=== PATIENT | female | born 1995 | race Caucasian/White ===

== ENCOUNTER 2019-07-31 16:36 | Inpatient (IN) ==
--- NOTE | 2019-07-31 17:12 | ED.ABDFE ---
HPI Time Seen Time Seen by Provider: 07/31/19 17:05 PCP Primary Care Physician: DR GIBBONS HPI Comment HPI Comment: PATIENT IS 23YR OLD WHITE FEMALE IN THE EMERGENCY ROOM WITH FEVER, CONSTIPATION AND LOWER BACK PAIN. ILLNESS STATED 3 WEEKS AGO WITH DULL ACHE IN THE LOWER BACK THAT HAVE INCREASE IN INTENSITY. PAIN MOST SEVERE LEFT FLANK AREA. PAIN WAS 10/10 AT HOME BEFORE COMING TO HOSPITAL, TOOK PAIN MED NOW PAIN 6/10. PAIN RADIATES TO HER ABDOMEN. SHE IS CONSTIPATED TIMES 2 WEEKS AND HAD SMALL BM TODAY ONE TIME. ONE WEEK AGO, SAW DR. GIBBONS WHO DIAGNOSE NEW ONSET DIABETES AND SHE WAS STARTED ON METFORMIN. SHE IS TAKING MEDICATION. PATIENT SAID SHE IS RUNNING FEVER AND HURTING ALL OVER WELL IN HER CHEST. DENIES DYSURIA. NO POLYURIA BUT HAVE POLYDYPSIA. PATIENT HAVE RAPID HEART RATE AND RAPID BREATHING. Complaint Doctors Chief Complaint Comments: LOWER BACK PAIN TIMES 3 WEEKS, FEVER, VOMITING AND CONSTIPATION ALSO. Chief Complaint:: PT STATES THAT ALMOST 3 WEEKS AGO SHE STARTED HAVING A DULL PAIN BACK THAT GRADUALLY INCREASED INTO CONSTANT SHARP STABBING THAT IS ACROSS LOWER BACK THAT RADIATES INTO ABDOMEN. PT C/O CONSITPATION. PT HAD FIRST BM IN 2 WEEKS THIS MORNING. PT STATES SHE CAN'T KEEP FOOD OR LIQUIDS DOWN. PT C/O DIFFICULTY SWALLOWING AND HAS HAD FEVER AND CHILLS. Self Treatment fo Chief Complaint: TOOK DILAUDID 4MG PO AROUND NOON TODAY WITH MINIMAL RELIEF Reviewed Nurses Notes Review: Yes Source History Provided: Patient Mode of arrival Mode of Arrival: Ambulatory Timing Onset of Chief Complaint: 07/31/19 Came on: Suddenly Duration Since Onset: Constant Duration: Weeks Location Location: Diffuse (LOWER BACK PAIN RADIATING TO ABDOMEN.) Severity Severity: Moderate Quality Quality: Aching (ACHING BACK PAIN.), Sharp and Generalized Context History of: None Modifying factors Worsening Factors: Movement Improving Factors: Lying Still Associated signs and symptoms Associated Signs and Symptoms: Nausea, Vomiting and Constipation; denies Hematemesis and Dysuria Other history Other History: DIAGNOSE WITH DM ONE WEEK AGO TAKING METFORMING. PMH PMH Past Medical History: Yes Past Medical History: Diabetes Past Surgical History: Yes Surgical History: Tonsillectomy Family History History of Family Medical Conditions: Yes Family Medical History: Diabetes Mellitus and Hypertension Social History Does patient currently use any type of tobacco product: No Have you used tobacco products in the last 12 months: No Type of Tobacco Use: Cigarettes Does any household member use tobacco: Yes Alcohol Use: None Do you use any recreational Drugs:: Yes (PAIN PILLS) Lives With: Family Lives Where: Home infectious screening In the last 2 months have you had wt loss of >10#?: NO Have you had fever, night sweats or hemotysis?: No Have you traveled outside the country in the last 6 months?: No Isolation: Standard ROS Review of Systems Constitutional: See HPI, Chills, Fever, Weakness and Fatigue Eyes: No Symptoms Reported and See HPI; negative Eye Pain, Blurred Vision and Photophobia ENTM: No Symptoms Reported and See HPI; negative Ear Pain, Nose Discharge, Nose Congestion and Throat Pain Respiratoy: See HPI and Short of Breath; negative Productive Cough, Non- Productive Cough and Wheezing Cardiovascular: See HPI, Chest Pain and Palpitations; negative Edema Gastrointestinal/Abdominal: See HPI, Abdominal Pain, Constipation, Nausea and Vomiting; negative Diarrhea Genitourinary: See HPI and Pain; negative Discharge, Dysuria, Frequency and Hematuria Neurological: See HPI, Weakness and Dizziness; negative Headache Musculoskeletal: See HPI, Back Pain (LOWER BACK PAIN.) and Muscle Pain Integumentary: See HPI and Dryness; negative Change in Color, Rash and Juandice Hematologic/Lymphatic: See HPI; negative Easy Bleeding, Easy Bruising and S wollen Glands Endocrine: See HPI and Increased Thirst; negative Increased Urine Psychiatric: No Symptoms Reported and See HPI All Other Systems: Reviewed and Negative PE Vital Signs Vitals: Temperature 98.2 F Pulse Rate 115 Respiratory Rate 30 Blood Pressure [Left Arm] 145/95 Blood Pressure 131/88 O2 Sat by Pulse Oximetry 100 General Limitations: No Limitations General Appearance: Alert and In Distress (RAPID VENTILATION.) Head Head Exam: Normal Inspection and Atraumatic Eyes Eye exam: Normal Appearance, PERRL and EOMI; negative Scleral Icterus and Conjunctival Injection ENT ENT Exam: Normal Exam, Normal Oropharynx, Normal External Ear Exam and TM's Normal Bilaterally Neck Neck Exam: Normal Inspection and Trachea Midline; negative Tenderness and Lymphadenopathy Chest Chest Inspection: Normal Inspection and Symmetric Chest Wall Rise; negative Tenderness Respiratory Respiratory Exam: Normal Lung Sounds Bilat and Respiratory Distress; negative Accessory Muscle Use and Chest Wall Tenderness Respiratory Exam: Bilateral: Clear to Auscultation Cardiovascular Cardiovascular Exam: Regular Rate, Tachycardia and Normal Heart Sounds; negative Systolic Murmur and Diastolic Murmur Abdominal Exam Abdominal Exam: Normal Bowel Sounds, Soft and Tenderness Abdominal Tenderness: Diffuse and Moderate Rectal Rectal Exam: Deferred Back Back Exam: Tenderness, (R) CVA Tenderness, (L) CVA Tenderness and Paraspinal Tenderness Extremeties Extremities Exam: Normal Inspection and Normal Capillary Refill; negative Tenderness, Edema and Calf Tenderness External Exam: Female: Deferred : Speculum Exam (Female): Deferred : Bimanual Exam (female): Deferred Neurologic Neurological Exam: Alert, Oriented X3 and CN II-XII Intact; negative Motor Sensory Deficit Psychiatric Psychiatric Exam: Normal Affect and Normal Mood Skin Skin Exam: Dry MDM Differential Diagnosis Differential Diagnosis- Considerations may include:: Bowel Obstruction, Cholcystitis, Cholelethiasis, Constipation, Diverticular disease, Pancreatitis, Urinary tract infection and Urolithiasis Other differential diagnosis: DKA, SEPSIS,INFLUENZA,[place]. COURSE Treatment Treatment: SEE ORDER. NS 1L BOLUS. PATIENT SIGN OUT TO DR. ALCANTARA AT 20:15PM. Consultation Consultation Comments: RADIOLOGIST DR. NEIL DISCUSS LEFT RENAL MASS AND CONCERN FOR ABSCESS OR SEVERE PYELONEPHRITIS. DISCUSSED PATIENT WITH DR. FABIAN, ON MD. IV CONSTRAT CT ABD/PELVIS NOW, IV ANTIBIOTICS/ROCEPHIN AND TOBRAMYCIN. Education/Counseling Education/Counseling: Patient ROR Labs Reviewed Result Diagrams: 08/01/19 03:40 08/01/19 03:40 Laboratory: WBC 16.0 X10^3/uL (3.6-10.0) H 07/31/19 18:08 RBC 4.37 X10^6/uL (3.5-5.4) 07/31/19 18:08 Hgb 10.0 g/dL (12.0-16.0) L 07/31/19 18:08 Hct 31.3 % (36.0-47.0) L 07/31/19 18:08 MCV 71.6 fL (80.0-100.0) L 07/31/19 18:08 MCH 22.8 pg (27.0-34.0) L 07/31/19 18:08 MCHC 31.8 g/dL (33.0-35.0) L 07/31/19 18:08 RDW 16.0 % (11.6-16.5) 07/31/19 18:08 Plt Count 513 X10^3/uL (150.0-450.0) H 07/31/19 18:08 Plt Count Comment Increased (ADEQUATE) A 07/31/19 18: MPV 8.4 fL (7.4-11.0) 07/31/19 18:08 Neut % (Auto) 78.2 % (42.0-75.0) H 07/31/19 18:08 Lymph % (Auto) 12.2 % (21.0-51.0) L 07/31/19 18:08 Steele % (Auto) 8.9 % (0.0-13.0) 07/31/19 18:08 Eos % (Auto) 0.2 % (0.9-2.9) L 07/31/19 18:08 Baso % (Auto) 0.5 % (0.2-1.0) 07/31/19 18:08 Neut # (Auto) 12.5 x10^3/uL (2.2-4.8) H 07/31/19 18:08 Lymph # (Auto) 2.0 X10^3/uL (1.3-2.9) 07/31/19 18:08 Steele # (Auto) 1.4 x10^3/uL (0.3-0.8) H 07/31/19 18:08 Eos # (Auto) 0.0 x10^3/uL (0.0-0.2) 07/31/19 18:08 Baso # (Auto) 0.1 X10^3/uL (0.0-0.1) 07/31/19 18:08 Absolute Nucleated RBC 0.0 /100WBC 07/31/19 18:08 Plt Morphology Comment Normal (NORMAL) 07/31/19 18: RBC Morphology Abnormal (NORMAL) A 07/31/19 18: Hypochromasia 1+ A 07/31/19 18: Sample Site Rb 07/31/19 21:00 ABG pH 7.400 (7.35-7.45) 07/31/19 21:00 ABG pCO2 33.0 mmHg (35.0-45.0) L 07/31/19 21:00 ABG pO2 93.0 mmHg (80.0-100.0) 07/31/19 21:00 ABG HCO3 20.4 mmol/L (22-26) L 07/31/19 21:00 ABG O2 Saturation 97.0 % (90-100) 07/31/19 21:00 ABG Base Excess -3.6 mmol/L (-2.0-2.0) L 07/31/19 21:00 Lam Test N/a 07/31/19 21:00 A-a Gradient 15.0 mmHg 07/31/19 21:00 FiO2 21.0 07/31/19 21:00 Blood Gas Comments Irma well ae 07/31/19 21:00 Sodium 130 mmol/L (136-145) L 07/31/19 20:31 Corrected Sodium 135 mmol/L (136-145) L 07/31/19 20:31 Potassium 2.8 mmol/L (3.5-5.1) L* 07/31/19 20:31 Chloride 95 mmol/L (98-107) L 07/31/19 20:31 Carbon Dioxide 19.2 mmol/L (21-32) L 07/31/19 20:31 BUN 2 mg/dL (7-18) L 07/31/19 20:31 Creatinine 0.66 mg/dL (0.55-1.02) 07/31/19 20:31 Est GFR (MDRD) Af Amer > 60 (>60) 07/31/19 20:31 Est GFR (MDRD) Non-Af > 60 (>60) 07/31/19 20:31 Glucose 316 mg/dL (65-99) H 07/31/19 20:31 POC Glucose (mg/dL) 298 mg/dL (65-99) H 07/31/19 21:23 Lactic Acid 0.8 mmol/L (0.4-2.0) 07/31/19 19:41 Calcium 8.4 mg/dL (8.5-10.1) L 07/31/19 20:31 Corrected Calcium 10.3 mg/dL (8.5-10.1) H 07/31/19 18:08 Total Bilirubin 0.40 mg/dL (0.2-1.0) 07/31/19 18:08 AST 9 Units/L (15-37) L 07/31/19 18:08 ALT 9 Units/L (12-78) L 07/31/19 18:08 Alkaline Phosphatase 137 Units/L (46-116) H 07/31/19 18:08 Creatine Kinase 28 Units/L (26-192) 07/31/19 18:08 CK-MB (CK-2) < 1.0 ng/mL (0-4.0) 07/31/19 18:08 CK/CKMB % Calc 3.6 % (<4) 07/31/19 18:08 Troponin I < 0.02 ng/mL (0-1.5) 07/31/19 18:08 Total Protein 8.2 g/dL (6.4-8.2) 07/31/19 18:08 Albumin 2.4 g/dL (3.4-5.0) L 07/31/19 18:08 Globulin 5.8 g/dL (2.5-4.5) H 07/31/19 18:08 Albumin/Globulin Ratio 0.4 Ratio (1.1-2.1) L 07/31/19 18:08 Amylase 9 Units/L (25-115) L 07/31/19 18:08 Lipase 30 Units/L (73-393) L 07/31/19 18:08 Specimen Type Clean catch urine 07/31/19 17:35 Urine Color Pale yellow (YELLOW) 07/31/19 17:35 Urine Appearance Clear (CLEAR) 07/31/19 17:35 Urine pH 6.0 (5.0 - 8.0) 07/31/19 17:35 Ur Specific [place] 1.010 (1.000-1.030) 07/31/19 17:35 Urine Protein 2+ (NEGATIVE) 07/31/19 17:35 Urine Glucose (UA) 4+ (NEGATIVE) 07/31/19 17:35 Urine Ketones 3+ (NEGATIVE) 07/31/19 17:35 Urine Occult Blood 2+ (NEGATIVE) 07/31/19 17:35 Urine Nitrite Negative (NEGATIVE) 07/31/19 17:35 Urine Bilirubin Negative (NEGATIVE) 07/31/19 17:35 Urine Urobilinogen Normal (NORMAL) 07/31/19 17:35 Ur Leukocyte Esterase Negative (NEGATIVE) 07/31/19 17:35 Urine RBC 0-2 /HPF (0-3) 07/31/19 17:35 Urine WBC None seen /HPF (0-5) 07/31/19 17:35 Ur Squamous Epith Cells Negative /HPF (NEGATIVE) 07/31/19 17:35 Urine Bacteria Negative /HPF (NEGATIVE) 07/31/19 17:35 Ur Culture Indicated? No/not indicated 07/31/19 17:35 Urine Opiates Screen Negative (NEG=<300) 07/31/19 17:35 Urine Methadone Screen Negative (NEG=<300) 07/31/19 17:35 Ur Barbiturates Screen Negative (NEG=<200) 07/31/19 17:35 Ur Phencyclidine Scrn Negative (NEG=<25) 07/31/19 17:35 Ur Amphetamines Screen Negative (NEG=<1000) 07/31/19 17:35 U Benzodiazepines Scrn Negative (NEG=<200) 07/31/19 17:35 Urine Cocaine Screen Negative (NEG=<300) 07/31/19 17:35 U Marijuana (THC) Screen Negative (NEG=<50) 07/31/19 17:35 Acetone, Semi-Quant Small (NEGATIVE) H 07/31/19 18:08 Influenza Type A (PCR) Negative (NEGATIVE) 07/31/19 18:09 Influenza Type B (PCR) Negative (NEGATIVE) 07/31/19 18:09 Opioid Opioid Risk Tool Total: 0 Total Score Risk Category: Low Risk Copyright: Yinka BRENNAN predicting aberrant behaviors Diagnosis Discharge Problem: Renal lesion, Renal abscess, Perinephric abscess, Metabolic acidosis due to diabetes mellitus, Hypokalemia, Constipation Diabetes mellitus Qualifiers: Diabetes mellitus type: other specified (including SEAN) Diabetes mellitus exterminator termite insulin use: without exterminator termite use Diabetes mellitus complication status: with hyperglycemia Qualified Code(s): E13.65 - Other specified diabetes mellitus with hyperglycemia Instructions Forms: Excuse From Work Patient Portal ADDITIONAL NOTES Additional Notes Additional Notes: DISCUSSED PATIENTS CONDITION OF POSSIBLE DKA AND RENAL ABSCESS WITH HER. HER CT REPORT WELL NEED FOR CT WITH CONTRAST. SHE UNDERSTANDS. SHE IS TOLD CARE IS TURN TO DR. ALCANTARA MY SHIFT IS ENDDED.
[2019-07-31 17:46] LABS: BILIRUBIN,URINE NEGATIVE (NEGATIVE); BLOOD/HEMOGLOBIN,URINE 2+ (NEGATIVE); GLUCOSE, URINE 4+ (NEGATIVE); KETONES,URINE 3+ (NEGATIVE); LEUKOCYTE ESTERASE ,URINE NEGATIVE (NEGATIVE); NITRITES,URINE NEGATIVE (NEGATIVE); PROTEIN,URINE 2+ (NEGATIVE); UROBILINOGEN,URINE NORMAL (NORMAL)
[2019-07-31 17:54] LABS: APPEARANCE,URINE CLEAR (CLEAR); COLOR,URINE PALE YELLOW (YELLOW)
[2019-07-31 17:55] LABS: BACTERIA,URINE NEGATIVE /HPF (NEGATIVE); RBC,URINE 0-2 /HPF (0-3); SQUAMOUS EPITHELIAL CELL,UR NEGATIVE /HPF (NEGATIVE)
[2019-07-31] MEDS ORDERED: NS 1000 ML 1,000 ML IV ONE ×4 (17:59→20:36)
[2019-07-31] MEDS ORDERED: NS 1000 ML 1,000 ML ONE ×4 (18:05→22:09)
[2019-07-31 18:17] LABS: BASOPHILS # (AUTO) 0.1 X10^3/uL (0.0-0.1); BASOPHILS % (AUTO) 0.5 % (0.2-1.0); EOSINOPHILS % (AUTO) 0.2 % (0.9-2.9); HEMATOCRIT 31.3 % (36.0-47.0); LYMPHOCYTES % (AUTO) 12.2 % (21.0-51.0); MEAN CORPUSCULAR HEMOGLOBIN 22.8 pg (27.0-34.0); MEAN CORPUSCULAR HGB CONC 31.8 g/dL (33.0-35.0); MEAN CORPUSCULAR VOLUME 71.6 fL (80.0-100.0); MEAN PLATELET VOLUME 8.4 fL (7.4-11.0); MONOCYTES # (AUTO) 1.4 x10^3/uL (0.3-0.8); MONOCYTES % (AUTO) 8.9 % (0.0-13.0); NEUTROPHILS # (AUTO) 12.5 x10^3/uL (2.2-4.8); NEUTROPHILS % (AUTO) 78.2 % (42.0-75.0); PLATELET COUNT 513 X10^3/uL (150.0-450.0); RED BLOOD COUNT 4.37 X10^6/uL (3.5-5.4)
[2019-07-31 18:38] LABS: ALANINE AMINOTRANSFERASE 9 Units/L (12-78); ALBUMIN 2.4 g/dL (3.4-5.0); ALKALINE PHOSPHATASE 137 Units/L (46-116); AMYLASE 9 Units/L (25-115); ASPARTATE AMINO TRANSFERASE 9 Units/L (15-37); BLOOD UREA NITROGEN 2 mg/dL (7-18); CARBON DIOXIDE 17.8 mmol/L (21-32); CHLORIDE 86 mmol/L (98-107); CKMB % 3.6 % (<4); COR CA(FOR HYPOALB) 10.3 mg/dL (8.5-10.1); CREATINE KINASE 28 Units/L (26-192); CREATINE KINASE MB < 1.0 ng/mL (0-4.0); CREATININE 0.86 mg/dL (0.55-1.02); LIPASE 30 Units/L (73-393); TOTAL PROTEIN 8.2 g/dL (6.4-8.2); eGFR NON BLACK RACES > 60 (>60)
[2019-07-31 18:41] LABS: HYPOCHROMASIA 1+; PLATELET MORPHOLOGY COMMENT NORMAL (NORMAL)
[2019-07-31 18:57] LABS: SODIUM 123 mmol/L (136-145)
[2019-07-31 18:59] LABS: COR NA(FOR HYPERGLY) 134 mmol/L (136-145)
[2019-07-31 19:01] LABS: TROPONIN I < 0.02 ng/mL (0-1.5)
--- NOTE | 2019-07-31 19:16 | CT ---
CT abdomen and pelvis without contrast Indication: Left flank pain Technique: Helical CT images of the abdomen and pelvis were obtained without IV contrast. Reformatted images in the coronal and sagittal planes were also generated for review. Comparison: None Findings: Lung bases are clear. No aggressive osseous lesions. Evaluation for soft tissue pathology is limited without IV contrast. Accounting for this, there is a large soft tissue density collection versus mass arising from the inferior margin of the left kidney, measuring roughly 7.7 cm in maximum diameter (coronal image 22). This could represent a large left renal hematoma, pyelonephritis complicated by abscess or possibly underlying renal mass. Moderate stranding about the left kidney and left renal lesion also seen. There is no urolithiasis or obstructive uropathy of either kidney. The proximal descending colon is compressed by the left renal lesion and appears mildly thickened. There is moderate stool throughout the more proximal colon, possibly representing partial colonic obstruction. No small bowel dilatation is seen to suggest small bowel obstruction. The unenhanced liver, spleen, pancreas and adrenals are grossly unremarkable. Nondistended gallbladder is normal. The abdominal aorta is normal in caliber. Urinary bladder is grossly normal without stones. Uterus and ovaries are present. No free air or significant free fluid is identified. There are multiple mildly enlarged retroperitoneal lymph nodes. For future reference, a left retroperitoneal node measures up to 1.5 cm in short axis on image 38 series 3. Impression: Large (7.7 cm) soft tissue density mass versus collection arising from the inferior margin of the left kidney as above. Findings are poorly evaluated without IV contrast and differential considerations include left renal hematoma, pyelonephritis complicated by abscess or possibly underlying renal neoplasm. Clinical as well as lab correlation for signs of infection is necessary. Contrast enhanced CT or MR renal mass protocol is also recommended on an outpatient basis for further evaluation once the patient is clinically stable. Prominent left retroperitoneal lymph nodes, which are nonspecific but could be reactive versus malignant in etiology. Attention at follow-up recommended. Compression as well as mild likely reactive thickening of the proximal descending colon by the left renal lesion as above. There is moderate stool within the more proximal colon, which could represent partial associated colonic obstruction. Correlation with patient bowel habits is necessary. The above findings and recommendations were discussed with Dr. Fritz by Dr. Neil via telephone at 7:10 p.m. 07/31/2019. Reported By:
[2019-07-31] MEDS ORDERED: ROCEPHIN VIAL 1 GRAM 1 G in NS 100 ML IV + SPIKE MINIBAG* 100 ML IV ONE (20:21)
[2019-07-31] MEDS ORDERED: ROCEPHIN VIAL 1 GRAM ONE (20:32)
[2019-07-31] MEDS ORDERED: TOBRAMYCIN SULFATE 80 MG in NS 100 ML IV 100 ML IV ONE (20:37)
[2019-07-31] MEDS ORDERED: ZOFRAN INJ 4 MG VIAL IVP ONE (20:38)
[2019-07-31] MEDS ORDERED: ZOFRAN INJ 4 MG VIAL ONE (20:39)
[2019-07-31] MEDS ORDERED: TOBRAMYCIN SULFATE ONE (20:39)
[2019-07-31] MEDS ORDERED: NS 100 ML IV 100 ML IV ONE (20:40)
[2019-07-31 20:44] LABS: BLOOD UREA NITROGEN 2 mg/dL (7-18); CALCIUM 8.4 mg/dL (8.5-10.1); CARBON DIOXIDE 19.2 mmol/L (21-32); CHLORIDE 95 mmol/L (98-107); COR NA(FOR HYPERGLY) 135 mmol/L (136-145); CREATININE 0.66 mg/dL (0.55-1.02); SODIUM 130 mmol/L (136-145); eGFR NON BLACK RACES > 60 (>60)
[2019-07-31] MEDS ORDERED: K-LYTE EFFERVESCENT PO STA (20:45)
[2019-07-31] MEDS ORDERED: K-LYTE EFFERVESCENT ONE (20:48)
[2019-07-31] MEDS ORDERED: HumuLIN R IV STA (20:54)
[2019-07-31] MEDS ORDERED: HumuLIN R ONE (20:58)
[2019-07-31 21:07] LABS: ABG BASE EXCESS -3.6 mmol/L (-2.0-2.0); ABG HCO3 20.4 mmol/L (22-26)
--- NOTE | 2019-07-31 23:04 | CT ---
CT abdomen and pelvis without contrast Indication: Left flank pain for 2 weeks. Nausea. History of mass seen on recent CT Technique: Helical images through the abdomen and pelvis after IV contrast. Coronal and sagittal reformats provided. Comparison: CT from 07/31/2019 Findings: Limited images through lower chest shows no acute abnormality. Review of bone windows shows no osseous lesion Abdomen: The liver, gallbladder, spleen, pancreas and adrenal glands are normal. The right kidney is normal. Vasculature is. Stomach and small bowel show no acute abnormality with contrast reaching the cecum without obstruction. There is moderate stool colon. And cephalo Shane the descending colon is large peripherally enhancing collection, also abutting the inferior pole of left kidney were the left kidney heterogeneously enhances on axial image 35. There is septated area in the lower pole of the left kidney measuring 2.8 x 2.8 x 2.5 cm on axial image 35 and coronal image 26 (AP, trans, cc), possibly representing a renal abscess. Adjacent to this and possibly communicating with this there is a large peripherally enhancing collection which abuts and compresses the descending colon which shows reactive wall thickening. This collection measures 7.0 x 7.2 x 7.0 cm on axial image 40 and coronal image 25 (AP, trans, cc). This is compatible with a perinephric abscess, probably from pyelonephritis and renal abscess, although colonic infection and subsequent abscess is possible. Underlying lesion cannot be completely excluded Pelvis: The urinary bladder, rectum, uterus and adnexa are normal. Impression: 1. Large peripherally enhancing collection in the left abdomen abutting the lower pole of the kidney in the descending colon. This is compatible with an abscess. Given the findings within the kidney, there is also a renal abscess and this could be the origin of the lesion. However, colonic origin is not excluded. Surgical evaluation recommended. Underlying lesion should be excluded. 2. No other acute abnormality seen. Reported By:
[2019-07-31] MEDS ORDERED: NS 1/2 1000 ML IV 0 ML IV ONE (23:33)
[2019-07-31] MEDS ORDERED: NS 1/2 + KCL 20 MEQ/L 1,000 ML IV ONE (23:41)
[2019-07-31] MEDS ORDERED: ROCEPHIN VIAL 1 GRAM 1 G in NS 100 ML IV + SPIKE MINIBAG* 100 ML IV SCH (23:41)
[2019-07-31] MEDS: NS 1/2 + KCL 20 MEQ/L 1,000 ML IV SCH (23:45)
[2019-08-01] MEDS ORDERED: NS 100 ML IV 100 ML IV ONE (00:09)
[2019-08-01] MEDS ORDERED: HumuLIN R ONE (00:10)
[2019-08-01 00:37] LABS: BLOOD UREA NITROGEN 1 mg/dL (7-18); CALCIUM 7.9 mg/dL (8.5-10.1); CHLORIDE 95 mmol/L (98-107); COR NA(FOR HYPERGLY) 136 mmol/L (136-145); CREATININE 0.56 mg/dL (0.55-1.02); SODIUM 131 mmol/L (136-145); eGFR NON BLACK RACES > 60 (>60)
[2019-08-01 02:16] VITALS: BMI 28.4
[2019-08-01] MEDS ORDERED: MAGNESIUM SULFATE 1 GRAM/100 mL PREMIX 4 G/400 ML BAG IV ONE (03:06)
[2019-08-01] MEDS: MAGNESIUM SULFATE 1 GRAM/100 mL PREMIX 1 GM/100 ML BAG IV PRN ×4 (03:10→13:41)
[2019-08-01 03:58] LABS: BASOPHILS % (AUTO) 0.3 % (0.2-1.0); EOSINOPHILS % (AUTO) 0.3 % (0.9-2.9); HEMATOCRIT 28.4 % (36.0-47.0); HEMOGLOBIN 9.3 g/dL (12.0-16.0); LYMPHOCYTES # (AUTO) 2.1 X10^3/uL (1.3-2.9); LYMPHOCYTES % (AUTO) 15.1 % (21.0-51.0); MEAN CORPUSCULAR HEMOGLOBIN 22.7 pg (27.0-34.0); MEAN CORPUSCULAR HGB CONC 32.7 g/dL (33.0-35.0); MEAN CORPUSCULAR VOLUME 69.5 fL (80.0-100.0); MEAN PLATELET VOLUME 7.8 fL (7.4-11.0); MONOCYTES # (AUTO) 1.3 x10^3/uL (0.3-0.8); MONOCYTES % (AUTO) 9.1 % (0.0-13.0); NEUTROPHILS # (AUTO) 10.7 x10^3/uL (2.2-4.8); NEUTROPHILS % (AUTO) 75.2 % (42.0-75.0); PLATELET COUNT 471 X10^3/uL (150.0-450.0); RED BLOOD COUNT 4.08 X10^6/uL (3.5-5.4); RED CELL DISTRIBUTION WIDTH 16.3 % (11.6-16.5); WHITE BLOOD COUNT 14.2 X10^3/uL (3.6-10.0)
[2019-08-01 04:09] LABS: BLOOD UREA NITROGEN 0 mg/dL (7-18); CARBON DIOXIDE 22.2 mmol/L (21-32); CHLORIDE 97 mmol/L (98-107); COR NA(FOR HYPERGLY) 136 mmol/L (136-145); CREATININE 0.52 mg/dL (0.55-1.02); SODIUM 133 mmol/L (136-145); eGFR NON BLACK RACES > 60 (>60)
[2019-08-01] MEDS ORDERED: POTASSIUM CHL 60 MEQ/NS 0.45% 500 ML IV PRN (04:21)
[2019-08-01] MEDS ORDERED: MICRO K EXTEN CAP 10 MEQ PO PRN (04:21)
[2019-08-01] MEDS ORDERED: KLOR-CON PO PRN (04:21)
[2019-08-01] MEDS ORDERED: K-RIDER 10 MEQ/NS 100 ML 10 MEQ/100 ML BAG IV PRN (04:21)
[2019-08-01] MEDS ORDERED: POTASSIUM CHL 40 MEQ/NS 0.45% 500 ML IV PRN (04:21)
[2019-08-01] MEDS ORDERED: NS 500 ML IV 500 ML IV ONE (04:25)
[2019-08-01] MEDS ORDERED: K-RIDER 10 MEQ/NS 100 ML 40 MEQ/400 ML BAG IV ONE (04:25)
[2019-08-01 09:09] LABS: CALCIUM 7.9 mg/dL (8.5-10.1); CARBON DIOXIDE 23.7 mmol/L (21-32); CHLORIDE 96 mmol/L (98-107); COR NA(FOR HYPERGLY) 132 mmol/L (136-145); CREATININE 0.44 mg/dL (0.55-1.02); SODIUM 131 mmol/L (136-145); eGFR NON BLACK RACES > 60 (>60)
[2019-08-01 09:28] LABS: BLOOD UREA NITROGEN 1 mg/dL (7-18)
[2019-08-01] MEDS: NS 1/2 + KCL 20 MEQ/L 1,000 ML IV SCH ×3 (10:07→20:26)
[2019-08-01] MEDS: TOBRAMYCIN SULFATE 80 MG in NS 100 ML IV 100 ML IV SCH ×2 (10:07→21:22)
[2019-08-01] MEDS: K-DUR TAB 20 MEQ PO PRN (10:08)
--- NOTE | 2019-08-01 12:46 | DR.H&P ---
H&P - History & Physical for Day of: H&P Date: 07/31/19 - Chief Complaint Chief Complaint: LEFT LOWER BACK PAIN, FEVER, N/V, ELEVATED BLOOD SUGAR - History of Present Illness History of Present Illness: This is a 23-year-old female who was having abdominal pain, more localized to the left flank and left side of the abdomen, which started several weeks ago with on-and-off abdominal pain on the left side with nausea, fever, frequent vomiting, and constipation. The patient was seen by Dr. Suárez last week and was treated for new onset diabetes mellitus and possible urinary tract infection. She had a small bowel movement earlier today but she was still having a low grade fever and chills. The patient was having frequent urination, but no significant burning sensation. She has a history of recurrent episodes of urinary tract infection over the past few years. No known diabetes mellitus in the past. She has normal bowel habits prior to this episode. No rectal bleeding. No known history of inflammatory bowel disease, diverticulosis, or other complaints. With this episode of pain, the patient was having heartburn and other gastroesophageal reflux disease symptoms. No known history of peptic ulcer disease or hiatal hernia. Pt reports she did have gestational diabetes, no complications post . Pt [id number] , na 123 on admission. Pt was admitted to ICU - Past Medical History Past Medical History: Diabetes - Past Surgical History Surgical History: Tonsillectomy - Family History Family Medical History: Diabetes Mellitus, Hypertension - Social History Does patient currently use any type of tobacco product: Yes Have you used tobacco products in the last 12 months: Yes Type of Tobacco Use: Cigarettes How many years tobacco product used: 4 Does any household member use tobacco: Yes Alcohol Use: None Drug Use: Prescription Drugs - Medications Home Medications: Sulfa (Sulfonamide Antibiotics) Allergy (Verified 07/31/19 23:40) CONTINUE taking the following medications metformin 1,000 mg PO BID 07/31/19 [History] pioglitazone 45 mg PO DAILY 07/31/19 [History] - Review of Systems Constitutional: Fever, Weakness, Malaise Eyes: No Symptoms Reported ENT: No Symptoms Reported Respiratory: No Symptoms Reported Cardiovascular: No Symptoms Reported Gastrointestinal: Nausea, Vomiting, Abdominal Pain Genitourinary: Retention Musculoskeletal: Back Pain Skin: No Symptoms Reported Neurological: No Symptoms Reported - Physical Exam Vital Signs: Temperature 99.6 F Pulse Rate [Apical] 109 Pulse Rate 120 Respiratory Rate 18 Blood Pressure [Left Arm] 125/81 Blood Pressure 141/91 O2 Sat by Pulse Oximetry 99 Oriented: Normal Eyes: Normal Ear: Normal Nose: Normal Throat: Normal Respiratory: Clear Throughout Cardiovascular: Normal : Normal Auscultation: Bowel Sounds: Normal Palpation: Normal Tenderness: LUQ, Moderate Skin: Decreased Turgur Musculoskeletal: Back:Thoracic, Back:Lumbar, Tender Psychiatric: Anxiety Affect: Anxious Speech Pattern: Clear, Appropriate - Assessment/Plan (1) Perinephric abscess Status: Acute Plan: ADMIT ICU, IV HYDRATION. CT ABD/PELVIS ON ADMISSION. BS CONTROL, BLOOD AND URINE CULTURES. IV ANTIBIOTICS, ELECTROLTE REPLACEMENT. CONTINOUS CARDIAC MONITORING, LACTIC ACID, ABG IN ER. STRICT I& OS (2) Hyponatremia Status: Acute (3) Diabetes mellitus Qualifiers: Diabetes mellitus type: other specified (including SEAN) Diabetes mellitus intermediate insulin use: without intermediate use Diabetes mellitus complication status: with hyperglycemia Qualified Code(s): E13.65 - Other specified diabetes mellitus with hyperglycemia Status: Acute (4) Hypokalemia Status: Acute - Allergies Allergies/Adverse Reactions: Allergies Allergy/AdvReac Type Severity Reaction Status Date / Time Sulfa (Sulfonamide Allergy Verified 07/31/19 23:40 Antibiotics)
[2019-08-01] MEDS: ROCEPHIN VIAL 1 GRAM 1 G in NS 100 ML IV + SPIKE MINIBAG* 100 ML IV SCH (20:26)
[2019-08-01] MEDS: SNACK - Diabetic Appropriate PO SCH (20:51)
[2019-08-01] MEDS ORDERED: TYLENOL 325 MG TAB PO ONE (21:58)
[2019-08-01] MEDS: TYLENOL 325 MG TAB PO PRN (22:00)
[2019-08-02] MEDS: NS 1/2 + KCL 20 MEQ/L 1,000 ML IV SCH ×5 (01:16→23:53)
[2019-08-02 04:49] LABS: BASOPHILS % (AUTO) 0.2 % (0.2-1.0); EOSINOPHILS % (AUTO) 0.2 % (0.9-2.9); HEMOGLOBIN 9.6 g/dL (12.0-16.0); LYMPHOCYTES # (AUTO) 2.1 X10^3/uL (1.3-2.9); LYMPHOCYTES % (AUTO) 16.4 % (21.0-51.0); MEAN CORPUSCULAR HEMOGLOBIN 22.3 pg (27.0-34.0); MEAN CORPUSCULAR VOLUME 69.7 fL (80.0-100.0); MEAN PLATELET VOLUME 7.9 fL (7.4-11.0); MONOCYTES # (AUTO) 1.1 x10^3/uL (0.3-0.8); MONOCYTES % (AUTO) 8.2 % (0.0-13.0); NEUTROPHILS # (AUTO) 9.7 x10^3/uL (2.2-4.8); PLATELET COUNT 484 X10^3/uL (150.0-450.0); RED CELL DISTRIBUTION WIDTH 15.7 % (11.6-16.5); WHITE BLOOD COUNT 12.9 X10^3/uL (3.6-10.0)
[2019-08-02 04:59] LABS: ALANINE AMINOTRANSFERASE 19 Units/L (12-78); ALKALINE PHOSPHATASE 104 Units/L (46-116); ASPARTATE AMINO TRANSFERASE 30 Units/L (15-37); BLOOD UREA NITROGEN 1 mg/dL (7-18); CALCIUM 8.7 mg/dL (8.5-10.1); CARBON DIOXIDE 28.9 mmol/L (21-32); CHLORIDE 99 mmol/L (98-107); COR CA(FOR HYPOALB) 10.3 mg/dL (8.5-10.1); COR NA(FOR HYPERGLY) 140 mmol/L (136-145); CREATININE 0.53 mg/dL (0.55-1.02); MAGNESIUM 1.5 mg/dL (1.7-2.9); SODIUM 138 mmol/L (136-145); TOTAL PROTEIN 7.1 g/dL (6.4-8.2); eGFR NON BLACK RACES > 60 (>60)
[2019-08-02 05:30] LABS: HYPOCHROMASIA 1+; MICROCYTOSIS 1+; PLATELET MORPHOLOGY COMMENT NORMAL (NORMAL)
[2019-08-02] MEDS: POTASSIUM CHLORIDE LIQ 20 MEQ UDC PO PRN (05:33)
[2019-08-02] MEDS: MAGNESIUM SULFATE 1 GRAM/100 mL PREMIX 1 GM/100 ML BAG IV PRN ×2 (05:34→06:53)
[2019-08-02] MEDS: TOBRAMYCIN SULFATE 80 MG in NS 100 ML IV 100 ML IV SCH ×3 (08:46→21:20)
[2019-08-02 09:09] LABS: CREATININE 0.76 mg/dL (0.55-1.02)
--- NOTE | 2019-08-02 10:52 | DR.PROGNOT ---
Hospital Progress Notes - Progress Note for Day of: Progress Note Date: 08/02/19 - Chief Complaint Chief Complaint: less abdominal pain . no nausea or vomiting .occasional chills . final blood culture was negative . urine culture was negative . low grade fever last night . WBC 12.6 today . - Past Medical Family Social History Past Med/Fam/Surg Hx: No changes since H&P Allergies: Allergies Sulfa (Sulfonamide Antibiotics) Allergy (Verified 07/31/19 23:40) - Review Of Systems ROS: No change since H&P - Vital Signs Vital Signs: Temperature 98.7 F Pulse Rate [Apical] 110 Pulse Rate 107 Respiratory Rate 22 Blood Pressure [Left Arm] 120/78 Blood Pressure 114/74 O2 Sat by Pulse Oximetry 100 - Physical Exam Oriented: Normal Eyes: Normal Ear: Normal Nose: Normal Throat: Normal Cardiovascular: Normal : Frequency (soft , flat abdomen with Lt side denderness . BS+) GI:Auscultation: Normal GI:Palpation: Normal GI: Tenderness: LUQ, Moderate Skin: Decreased Turgur Musculoskeletal: Back:Thoracic, Back:Lumbar, Tender Psychiatric: Anxiety Affect: Anxious Speech Pattern: Clear, Appropriate - Laboratory and Diagnostics Result Diagrams: 08/02/19 04:29 08/02/19 08:40 Labs: 07/31/19 11:45 Blood Blood Culture - Preliminary 08/01/19 11:45 Urine,Clean Catch Urine Culture - Preliminary 07/31/19 19:41 Blood Blood Culture - Preliminary Laboratory WBC 12.9 X10^3/uL (3.6-10.0) H 08/02/19 04:29 RBC 4.30 X10^6/uL (3.5-5.4) 08/02/19 04:29 Hgb 9.6 g/dL (12.0-16.0) L 08/02/19 04:29 Hct 30.0 % (36.0-47.0) L 08/02/19 04:29 MCV 69.7 fL (80.0-100.0) L 08/02/19 04:29 MCH 22.3 pg (27.0-34.0) L 08/02/19 04:29 MCHC 32.0 g/dL (33.0-35.0) L 08/02/19 04:29 RDW 15.7 % (11.6-16.5) 08/02/19 04: Plt Count 484 X10^3/uL (150.0-450.0) H 08/02/19 04:29 Plt Count Comment Increased (ADEQUATE) A 08/02/19 04: MPV 7.9 fL (7.4-11.0) 08/02/19 04: Neut % (Auto) 75.0 % (42.0-75.0) 08/02/19 04: Lymph % (Auto) 16.4 % (21.0-51.0) L 08/02/19 04:29 [place] % (Auto) 8.2 % (0.0-13.0) 08/02/19 04: Eos % (Auto) 0.2 % (0.9-2.9) L 08/02/19 04: Baso % (Auto) 0.2 % (0.2-1.0) 08/02/19 04: Neut # (Auto) 9.7 x10^3/uL (2.2-4.8) H 08/02/19 04:29 Lymph # (Auto) 2.1 X10^3/uL (1.3-2.9) 08/02/19 04:29 [place] # (Auto) 1.1 x10^3/uL (0.3-0.8) H 08/02/19 04:29 Eos # (Auto) 0.0 x10^3/uL (0.0-0.2) 08/02/19 04:29 Baso # (Auto) 0.0 X10^3/uL (0.0-0.1) 08/02/19 04: Absolute Nucleated RBC 0.0 /100WBC 08/02/19 04: Plt Morphology Comment Normal (NORMAL) 08/02/19 04: RBC Morphology Abnormal (NORMAL) A 08/02/19 04: Hypochromasia 1+ A 08/02/19 04: Microcytosis 1+ A 08/02/19 04:29 Sample Site Rb 07/31/19 21:00 ABG pH 7.400 (7.35-7.45) 07/31/19 21:00 ABG pCO2 33.0 mmHg (35.0-45.0) L 07/31/19 21:00 ABG pO2 93.0 mmHg (80.0-100.0) 07/31/19 21:00 ABG HCO3 20.4 mmol/L (22-26) L 07/31/19 21:00 ABG O2 Saturation 97.0 % (90-100) 07/31/19 21:00 ABG Base Excess -3.6 mmol/L (-2.0-2.0) L 07/31/19 21:00 Lam Test N/a 07/31/19 21:00 A-a Gradient 15.0 mmHg 07/31/19 21:00 FiO2 21.0 07/31/19 21:00 Blood Gas Comments Irma well ae 07/31/19 21:00 Sodium 138 mmol/L (136-145) 08/02/19 04:29 Corrected Sodium 140 mmol/L (136-145) 08/02/19 04:29 Potassium 3.1 mmol/L (3.5-5.1) L 08/02/19 08:40 Chloride 99 mmol/L (98-107) 08/02/19 04:29 Carbon Dioxide 28.9 mmol/L (21-32) 08/02/19 04:29 BUN 1 mg/dL (7-18) L 08/02/19 04:29 Creatinine 0.76 mg/dL (0.55-1.02) 08/02/19 08:40 Est GFR (MDRD) Af Amer > 60 (>60) 08/02/19 04:29 Est GFR (MDRD) Non-Af > 60 (>60) 08/02/19 04:29 Glucose 178 mg/dL (65-99) H 08/02/19 04:29 POC Glucose (mg/dL) 322 mg/dL (65-99) H 08/02/19 08:51 Lactic Acid 0.7 mmol/L (0.4-2.0) 08/02/19 04:29 Calcium 8.7 mg/dL (8.5-10.1) 08/02/19 04:29 Corrected Calcium 10.3 mg/dL (8.5-10.1) H 08/02/19 04:29 Magnesium 1.5 mg/dL (1.7-2.9) L 08/02/19 04:29 Total Bilirubin 0.10 mg/dL (0.2-1.0) L 08/02/19 04:29 AST 30 Units/L (15-37) 08/02/19 04:29 ALT 19 Units/L (12-78) 08/02/19 04:29 Alkaline Phosphatase 104 Units/L (46-116) 08/02/19 04:29 Creatine Kinase 28 Units/L (26-192) 07/31/19 18:08 CK-MB (CK-2) < 1.0 ng/mL (0-4.0) 07/31/19 18:08 CK/CKMB % Calc 3.6 % (<4) 07/31/19 18:08 Troponin I < 0.02 ng/mL (0-1.5) 07/31/19 18:08 Total Protein 7.1 g/dL (6.4-8.2) 08/02/19 04:29 Albumin 2.0 g/dL (3.4-5.0) L 08/02/19 04:29 Globulin 5.1 g/dL (2.5-4.5) H 08/02/19 04:29 Albumin/Globulin Ratio 0.4 Ratio (1.1-2.1) L 08/02/19 04:29 Amylase 9 Units/L (25-115) L 07/31/19 18:08 Lipase 30 Units/L (73-393) L 07/31/19 18:08 Specimen Type Clean catch urine 07/31/19 17:35 Urine Color Pale yellow (YELLOW) 07/31/19 17:35 Urine Appearance Clear (CLEAR) 07/31/19 17:35 Urine pH 6.0 (5.0 - 8.0) 07/31/19 17:35 Ur Specific [place] 1.010 (1.000-1.030) 07/31/19 17:35 Urine Protein 2+ (NEGATIVE) 07/31/19 17:35 Urine Glucose (UA) 4+ (NEGATIVE) 07/31/19 17:35 Urine Ketones 3+ (NEGATIVE) 07/31/19 17:35 Urine Occult Blood 2+ (NEGATIVE) 07/31/19 17:35 Urine Nitrite Negative (NEGATIVE) 07/31/19 17:35 Urine Bilirubin Negative (NEGATIVE) 07/31/19 17:35 Urine Urobilinogen Normal (NORMAL) 07/31/19 17:35 Ur Leukocyte Esterase Negative (NEGATIVE) 07/31/19 17:35 Urine RBC 0-2 /HPF (0-3) 07/31/19 17:35 Urine WBC None seen /HPF (0-5) 07/31/19 17:35 Ur Squamous Epith Cells Negative /HPF (NEGATIVE) 07/31/19 17:35 Urine Bacteria Negative /HPF (NEGATIVE) 07/31/19 17:35 Ur Culture Indicated? No/not indicated 07/31/19 17:35 Tobramycin Trough 0 ug/mL (0-2) 08/02/19 08:40 Urine Opiates Screen Negative (NEG=<300) 07/31/19 17:35 Urine Methadone Screen Negative (NEG=<300) 07/31/19 17:35 Ur Barbiturates Screen Negative (NEG=<200) 07/31/19 17:35 Ur Phencyclidine Scrn Negative (NEG=<25) 07/31/19 17:35 Ur Amphetamines Screen Negative (NEG=<1000) 07/31/19 17:35 U Benzodiazepines Scrn Negative (NEG=<200) 07/31/19 17:35 Urine Cocaine Screen Negative (NEG=<300) 07/31/19 17:35 U Marijuana (THC) Screen Negative (NEG=<50) 07/31/19 17:35 Acetone, Semi-Quant Cancelled 08/01/19 00:13 Influenza Type A (PCR) Negative (NEGATIVE) 07/31/19 18:09 Influenza Type B (PCR) Negative (NEGATIVE) 07/31/19 18:09 - Assessment and Plan 1: Lt perinephric abscess . DM . recurrent UTI . drug user . same IV ATB . repeat CT in am - Problem Patient Problems: Patient Problems Renal lesion (Acute) N28.9 Renal abscess (Acute) N15.1 Perinephric abscess (Acute) N15.1 Diabetes mellitus (Acute) E11.9 Metabolic acidosis due to diabetes mellitus (Acute) E11.69, E87.2 Hypokalemia (Acute) E87.6 Constipation (Acute) K59.00 Hyponatremia (Acute) E87.1
[2019-08-02] MEDS: K-DUR TAB 20 MEQ PO PRN (11:02)
[2019-08-02] MEDS: PEPCID TAB 20 MG PO SCH ×2 (16:00→20:39)
[2019-08-02] MEDS ORDERED: PHARMACY COMMENT IV NR (20:30)
[2019-08-02] MEDS: ROCEPHIN VIAL 1 GRAM 1 G in NS 100 ML IV + SPIKE MINIBAG* 100 ML IV SCH (20:40)
[2019-08-02] MEDS: SNACK - Diabetic Appropriate PO SCH (20:56)
[2019-08-03] MEDS: TYLENOL 325 MG TAB PO PRN (03:10)
[2019-08-03 04:55] LABS: BASOPHILS # (AUTO) 0.1 X10^3/uL (0.0-0.1); BASOPHILS % (AUTO) 0.4 % (0.2-1.0); EOSINOPHILS # (AUTO) 0.1 x10^3/uL (0.0-0.2); EOSINOPHILS % (AUTO) 0.6 % (0.9-2.9); HEMATOCRIT 28.6 % (36.0-47.0); HEMOGLOBIN 9.3 g/dL (12.0-16.0); LYMPHOCYTES # (AUTO) 2.6 X10^3/uL (1.3-2.9); MEAN CORPUSCULAR HEMOGLOBIN 22.6 pg (27.0-34.0); MEAN CORPUSCULAR HGB CONC 32.5 g/dL (33.0-35.0); MEAN CORPUSCULAR VOLUME 69.8 fL (80.0-100.0); MONOCYTES % (AUTO) 7.9 % (0.0-13.0); NEUTROPHILS # (AUTO) 9.2 x10^3/uL (2.2-4.8); NEUTROPHILS % (AUTO) 71.1 % (42.0-75.0); PLATELET COUNT 498 X10^3/uL (150.0-450.0); RED CELL DISTRIBUTION WIDTH 16.1 % (11.6-16.5)
[2019-08-03 05:06] LABS: ALANINE AMINOTRANSFERASE 29 Units/L (12-78); ALKALINE PHOSPHATASE 97 Units/L (46-116); ASPARTATE AMINO TRANSFERASE 31 Units/L (15-37); BLOOD UREA NITROGEN 1 mg/dL (7-18); CALCIUM 8.9 mg/dL (8.5-10.1); CARBON DIOXIDE 27.8 mmol/L (21-32); CHLORIDE 101 mmol/L (98-107); COR CA(FOR HYPOALB) 10.5 mg/dL (8.5-10.1); COR NA(FOR HYPERGLY) 140 mmol/L (136-145); CREATININE 0.55 mg/dL (0.55-1.02); MAGNESIUM 1.4 mg/dL (1.7-2.9); SODIUM 139 mmol/L (136-145); TOTAL PROTEIN 7.1 g/dL (6.4-8.2); eGFR NON BLACK RACES > 60 (>60)
[2019-08-03 05:29] LABS: HYPOCHROMASIA SLIGHT; MICROCYTOSIS 1+; PLATELET MORPHOLOGY COMMENT NORMAL (NORMAL)
[2019-08-03] MEDS ORDERED: PHARMACY COMMENT IV NR (05:30)
[2019-08-03] MEDS: MAGNESIUM SULFATE 1 GRAM/100 mL PREMIX 1 GM/100 ML BAG IV PRN ×3 (05:35→11:17)
[2019-08-03] MEDS: POTASSIUM CHLORIDE LIQ 20 MEQ UDC PO PRN (05:36)
[2019-08-03] MEDS: TOBRAMYCIN SULFATE 80 MG in NS 100 ML IV 100 ML IV SCH ×3 (05:37→21:55)
[2019-08-03] MEDS: NS 1/2 + KCL 20 MEQ/L 1,000 ML IV SCH ×2 (07:45→15:05)
[2019-08-03] MEDS ORDERED: AFLURIA II4 or FLUARIX II4 IM ONE ×2 (07:52→18:01)
[2019-08-03] MEDS ORDERED: PREVNAR 13 IM ONE (07:52)
[2019-08-03] MEDS ORDERED: DIPRIVAN VIAL ONE (09:14)
[2019-08-03] MEDS ORDERED: VERSED ONE (09:14)
[2019-08-03] MEDS: PEPCID TAB 20 MG PO SCH ×2 (09:49→20:53)
[2019-08-03] MEDS ORDERED: NULYTELY or GO-LYTELY PO SCH (10:00)
--- NOTE | 2019-08-03 10:17 | DR.PROGNOT ---
Hospital Progress Notes - Progress Note for Day of: Progress Note Date: 08/03/19 - Chief Complaint Chief Complaint: moderate Lt flank and Lt abdominal pain . no nausea or vomiting .occasional chills and low grade fever .tolerating diet well . final blood culture was negative . urine culture was negative . - Past Medical Family Social History Past Med/Fam/Surg Hx: No changes since H&P Allergies: Allergies Sulfa (Sulfonamide Antibiotics) Allergy (Verified 07/31/19 23:40) - Review Of Systems ROS: No change since H&P - Vital Signs Vital Signs: Temperature 98.0 F Pulse Rate [Apical] 110 Pulse Rate 94 Respiratory Rate 17 Blood Pressure [Left Arm] 120/78 Blood Pressure 114/72 O2 Sat by Pulse Oximetry 100 - Physical Exam Oriented: Normal Eyes: Normal Ear: Normal Nose: Normal Throat: Normal Cardiovascular: Normal : Frequency (soft , flat abdomen with Lt side denderness . BS+) GI:Auscultation: Normal GI:Palpation: Other (Lt flank tendr mass .) GI: Tenderness: LUQ, Moderate Skin: Decreased Turgur Musculoskeletal: Back:Thoracic, Back:Lumbar, Tender Psychiatric: Anxiety Affect: Anxious Speech Pattern: Clear, Appropriate - Laboratory and Diagnostics Result Diagrams: 08/03/19 04:12 08/03/19 08:07 Labs: 08/01/19 11:45 Urine,Clean Catch Urine Culture - Final 07/31/19 11:45 Blood Blood Culture - Preliminary 07/31/19 19:41 Blood Blood Culture - Preliminary Laboratory WBC 13.0 X10^3/uL (3.6-10.0) H 08/03/19 04:12 RBC 4.10 X10^6/uL (3.5-5.4) 08/03/19 04:12 Hgb 9.3 g/dL (12.0-16.0) L 08/03/19 04:12 Hct 28.6 % (36.0-47.0) L 08/03/19 04:12 MCV 69.8 fL (80.0-100.0) L 08/03/19 04:12 MCH 22.6 pg (27.0-34.0) L 08/03/19 04:12 MCHC 32.5 g/dL (33.0-35.0) L 08/03/19 04:12 RDW 16.1 % (11.6-16.5) 08/03/19 04:12 Plt Count 498 X10^3/uL (150.0-450.0) H 08/03/19 04:12 Plt Count Comment Adequate (ADEQUATE) 08/03/19 04:12 MPV 8.0 fL (7.4-11.0) 08/03/19 04:12 Neut % (Auto) 71.1 % (42.0-75.0) 08/03/19 04:12 Lymph % (Auto) 20.0 % (21.0-51.0) L 08/03/19 04:12 [place] % (Auto) 7.9 % (0.0-13.0) 08/03/19 04:12 Eos % (Auto) 0.6 % (0.9-2.9) L 08/03/19 04:12 Baso % (Auto) 0.4 % (0.2-1.0) 08/03/19 04:12 Neut # (Auto) 9.2 x10^3/uL (2.2-4.8) H 08/03/19 04:12 Lymph # (Auto) 2.6 X10^3/uL (1.3-2.9) 08/03/19 04:12 [place] # (Auto) 1.0 x10^3/uL (0.3-0.8) H 08/03/19 04:12 Eos # (Auto) 0.1 x10^3/uL (0.0-0.2) 08/03/19 04:12 Baso # (Auto) 0.1 X10^3/uL (0.0-0.1) 08/03/19 04:12 Absolute Nucleated RBC 0.0 /100WBC 08/03/19 04:12 Plt Morphology Comment Normal (NORMAL) 08/03/19 04:12 RBC Morphology Abnormal (NORMAL) A 08/03/19 04:12 Hypochromasia Slight A 08/03/19 04:12 Microcytosis 1+ A 08/03/19 04:12 Sample Site Rb 07/31/19 21:00 ABG pH 7.400 (7.35-7.45) 07/31/19 21:00 ABG pCO2 33.0 mmHg (35.0-45.0) L 07/31/19 21:00 ABG pO2 93.0 mmHg (80.0-100.0) 07/31/19 21:00 ABG HCO3 20.4 mmol/L (22-26) L 07/31/19 21:00 ABG O2 Saturation 97.0 % (90-100) 07/31/19 21:00 ABG Base Excess -3.6 mmol/L (-2.0-2.0) L 07/31/19 21:00 Lam Test N/a 07/31/19 21:00 A-a Gradient 15.0 mmHg 07/31/19 21:00 FiO2 21.0 07/31/19 21:00 Blood Gas Comments Irma well ae 07/31/19 21:00 Sodium 139 mmol/L (136-145) 08/03/19 04:12 Corrected Sodium 140 mmol/L (136-145) 08/03/19 04:12 Potassium 3.9 mmol/L (3.5-5.1) 08/03/19 08:07 Chloride 101 mmol/L (98-107) 08/03/19 04:12 Carbon Dioxide 27.8 mmol/L (21-32) 08/03/19 04:12 BUN 1 mg/dL (7-18) L 08/03/19 04:12 Creatinine 0.55 mg/dL (0.55-1.02) 08/03/19 04:12 Est GFR (MDRD) Af Amer > 60 (>60) 08/03/19 04:12 Est GFR (MDRD) Non-Af > 60 (>60) 08/03/19 04:12 Glucose 146 mg/dL (65-99) H 08/03/19 04:12 POC Glucose (mg/dL) 275 mg/dL (65-99) H 08/03/19 09:38 Lactic Acid 0.7 mmol/L (0.4-2.0) 08/02/19 04:29 Calcium 8.9 mg/dL (8.5-10.1) 08/03/19 04:12 Corrected Calcium 10.5 mg/dL (8.5-10.1) H 08/03/19 04:12 Magnesium 1.4 mg/dL (1.7-2.9) L 08/03/19 04:12 Total Bilirubin 0.10 mg/dL (0.2-1.0) L 08/03/19 04:12 AST 31 Units/L (15-37) 08/03/19 04:12 ALT 29 Units/L (12-78) 08/03/19 04:12 Alkaline Phosphatase 97 Units/L (46-116) 08/03/19 04:12 Creatine Kinase 28 Units/L (26-192) 07/31/19 18:08 CK-MB (CK-2) < 1.0 ng/mL (0-4.0) 07/31/19 18:08 CK/CKMB % Calc 3.6 % (<4) 07/31/19 18:08 Troponin I < 0.02 ng/mL (0-1.5) 07/31/19 18:08 Total Protein 7.1 g/dL (6.4-8.2) 08/03/19 04:12 Albumin 2.0 g/dL (3.4-5.0) L 08/03/19 04:12 Globulin 5.1 g/dL (2.5-4.5) H 08/03/19 04:12 Albumin/Globulin Ratio 0.4 Ratio (1.1-2.1) L 08/03/19 04:12 Amylase 9 Units/L (25-115) L 07/31/19 18:08 Lipase 30 Units/L (73-393) L 07/31/19 18:08 Specimen Type Clean catch urine 07/31/19 17:35 Urine Color Pale yellow (YELLOW) 07/31/19 17:35 Urine Appearance Clear (CLEAR) 07/31/19 17:35 Urine pH 6.0 (5.0 - 8.0) 07/31/19 17:35 Ur Specific [place] 1.010 (1.000-1.030) 07/31/19 17:35 Urine Protein 2+ (NEGATIVE) 07/31/19 17:35 Urine Glucose (UA) 4+ (NEGATIVE) 07/31/19 17:35 Urine Ketones 3+ (NEGATIVE) 07/31/19 17:35 Urine Occult Blood 2+ (NEGATIVE) 07/31/19 17:35 Urine Nitrite Negative (NEGATIVE) 07/31/19 17:35 Urine Bilirubin Negative (NEGATIVE) 07/31/19 17:35 Urine Urobilinogen Normal (NORMAL) 07/31/19 17:35 Ur Leukocyte Esterase Negative (NEGATIVE) 07/31/19 17:35 Urine RBC 0-2 /HPF (0-3) 07/31/19 17:35 Urine WBC None seen /HPF (0-5) 07/31/19 17:35 Ur Squamous Epith Cells Negative /HPF (NEGATIVE) 07/31/19 17:35 Urine Bacteria Negative /HPF (NEGATIVE) 07/31/19 17:35 Ur Culture Indicated? No/not indicated 07/31/19 17:35 Tobramycin Peak 2.6 ug/mL (4-8) L 08/02/19 10:28 Tobramycin Trough 0 ug/mL (0-2) 08/02/19 08:40 Urine Opiates Screen Negative (NEG=<300) 07/31/19 17:35 Urine Methadone Screen Negative (NEG=<300) 07/31/19 17:35 Ur Barbiturates Screen Negative (NEG=<200) 07/31/19 17:35 Ur Phencyclidine Scrn Negative (NEG=<25) 07/31/19 17:35 Ur Amphetamines Screen Negative (NEG=<1000) 07/31/19 17:35 U Benzodiazepines Scrn Negative (NEG=<200) 07/31/19 17:35 Urine Cocaine Screen Negative (NEG=<300) 07/31/19 17:35 U Marijuana (THC) Screen Negative (NEG=<50) 07/31/19 17:35 Acetone, Semi-Quant Cancelled 08/01/19 00:13 Influenza Type A (PCR) Negative (NEGATIVE) 07/31/19 18:09 Influenza Type B (PCR) Negative (NEGATIVE) 07/31/19 18:09 - Assessment and Plan 1: Lt perinephric abscess . DM . recurrent UTI . drug user . same IV ATB . repeat CT today .. will need drainage of the abscess - Problem Patient Problems: Patient Problems Renal lesion (Acute) N28.9 Renal abscess (Acute) N15.1 Perinephric abscess (Acute) N15.1 Diabetes mellitus (Acute) E11.9 Metabolic acidosis due to diabetes mellitus (Acute) E11.69, E87.2 Hypokalemia (Acute) E87.6 Constipation (Acute) K59.00 Hyponatremia (Acute) E87.1
[2019-08-03] MEDS: ACTOS PO SCH (11:15)
[2019-08-03] MEDS: GLUCOPHAGE XR PO SCH ×2 (11:15→20:52)
[2019-08-03] MEDS ORDERED: PNEUMOVAX 23 IM ONE (12:00)
--- NOTE | 2019-08-03 12:07 | PCM.PROG ---
Progress Note - Progress Note for Day of Date of Exam: 08/02/19 - Subjective Subjective: Pt is 23F admitted with left perirenal abscess. Pt had urine and blood cultures collected on admission and is currently on tobramycin and rocephin. Pt continues to co left flank and mid left abdominal pain,no nausea or vomiting and occasional chills . Final blood culture was negative and urine culture was negative. Pt reports low grade fever last night, WBC 12.6 today. - Past Medical Family Social History Past Med/Fam/Surg Hx: No changes since H&P Allergies: Allergies Sulfa (Sulfonamide Antibiotics) Allergy (Verified 07/31/19 23:40) - Review of Systems ROS: No change since H&P - Vital Signs and I&O's Vital Signs: Temperature 98.0 F Pulse Rate [Apical] 110 Pulse Rate 94 Respiratory Rate 17 Blood Pressure [Left Arm] 120/78 Blood Pressure 114/72 O2 Sat by Pulse Oximetry 100 Intake and Output: Intake & Output 08/01/19 08/02/19 08/03/19 08/04/19 11:59 11:59 11:59 11:59 Intake Total 4461.4 / 4461.4 4646.6 / 4646.6 5597 / 5597 Output Total 351 / 351 2750 / 2750 2100 / 2100 Balance 4110.4 / 4110.4 1896.6 / 1896.6 3497 / 3497 - Physical Exam Oriented: Normal Eyes: Normal Ear: Normal Nose: Normal Throat: Normal Respiratory: Normal Cardiovascular: Normal : Frequency (soft , flat abdomen with Lt side denderness . BS+) Auscultation: Bowel Sounds: Normal Tenderness: LUQ, Moderate Skin: Decreased Turgur Musculoskeletal: Back:Thoracic, Back:Lumbar, Tender Psychiatric: Anxiety Affect: Anxious Speech Pattern: Clear, Appropriate - Laboratory and Diagnostics Result Diagrams: 08/03/19 04:12 08/03/19 08:07 Labs: 07/31/19 19:41 Blood Blood Culture - Preliminary 08/01/19 11:45 Urine,Clean Catch Urine Culture - Final 07/31/19 11:45 Blood Blood Culture - Preliminary Laboratory WBC 13.0 X10^3/uL (3.6-10.0) H 08/03/19 04:12 RBC 4.10 X10^6/uL (3.5-5.4) 08/03/19 04:12 Hgb 9.3 g/dL (12.0-16.0) L 08/03/19 04:12 Hct 28.6 % (36.0-47.0) L 08/03/19 04:12 MCV 69.8 fL (80.0-100.0) L 08/03/19 04:12 MCH 22.6 pg (27.0-34.0) L 08/03/19 04:12 MCHC 32.5 g/dL (33.0-35.0) L 08/03/19 04:12 RDW 16.1 % (11.6-16.5) 08/03/19 04:12 Plt Count 498 X10^3/uL (150.0-450.0) H 08/03/19 04:12 Plt Count Comment Adequate (ADEQUATE) 08/03/19 04:12 MPV 8.0 fL (7.4-11.0) 08/03/19 04:12 Neut % (Auto) 71.1 % (42.0-75.0) 08/03/19 04:12 Lymph % (Auto) 20.0 % (21.0-51.0) L 08/03/19 04:12 [place] % (Auto) 7.9 % (0.0-13.0) 08/03/19 04:12 Eos % (Auto) 0.6 % (0.9-2.9) L 08/03/19 04:12 Baso % (Auto) 0.4 % (0.2-1.0) 08/03/19 04:12 Neut # (Auto) 9.2 x10^3/uL (2.2-4.8) H 08/03/19 04:12 Lymph # (Auto) 2.6 X10^3/uL (1.3-2.9) 08/03/19 04:12 [place] # (Auto) 1.0 x10^3/uL (0.3-0.8) H 08/03/19 04:12 Eos # (Auto) 0.1 x10^3/uL (0.0-0.2) 08/03/19 04:12 Baso # (Auto) 0.1 X10^3/uL (0.0-0.1) 08/03/19 04:12 Absolute Nucleated RBC 0.0 /100WBC 08/03/19 04:12 Plt Morphology Comment Normal (NORMAL) 08/03/19 04:12 RBC Morphology Abnormal (NORMAL) A 08/03/19 04:12 Hypochromasia Slight A 08/03/19 04:12 Microcytosis 1+ A 08/03/19 04:12 PT 14.8 SECONDS (11.8-14.3) 08/03/19 04:12 INR Target Range - 08/03/19 04:12 INR 1.20 (0.8-1.3) 08/03/19 04:12 Sample Site Rb 07/31/19 21:00 ABG pH 7.400 (7.35-7.45) 07/31/19 21:00 ABG pCO2 33.0 mmHg (35.0-45.0) L 07/31/19 21:00 ABG pO2 93.0 mmHg (80.0-100.0) 07/31/19 21:00 ABG HCO3 20.4 mmol/L (22-26) L 07/31/19 21:00 ABG O2 Saturation 97.0 % (90-100) 07/31/19 21:00 ABG Base Excess -3.6 mmol/L (-2.0-2.0) L 07/31/19 21:00 Lam Test N/a 07/31/19 21:00 A-a Gradient 15.0 mmHg 07/31/19 21:00 FiO2 21.0 07/31/19 21:00 Blood Gas Comments Irma well ae 07/31/19 21:00 Sodium 139 mmol/L (136-145) 08/03/19 04:12 Corrected Sodium 140 mmol/L (136-145) 08/03/19 04:12 Potassium 3.9 mmol/L (3.5-5.1) 08/03/19 08:07 Chloride 101 mmol/L (98-107) 08/03/19 04:12 Carbon Dioxide 27.8 mmol/L (21-32) 08/03/19 04:12 BUN 1 mg/dL (7-18) L 08/03/19 04:12 Creatinine 0.55 mg/dL (0.55-1.02) 08/03/19 04:12 Est GFR (MDRD) Af Amer > 60 (>60) 08/03/19 04:12 Est GFR (MDRD) Non-Af > 60 (>60) 08/03/19 04:12 Glucose 146 mg/dL (65-99) H 08/03/19 04:12 POC Glucose (mg/dL) 217 mg/dL (65-99) H 08/03/19 11:03 Lactic Acid 0.7 mmol/L (0.4-2.0) 08/02/19 04:29 Calcium 8.9 mg/dL (8.5-10.1) 08/03/19 04:12 Corrected Calcium 10.5 mg/dL (8.5-10.1) H 08/03/19 04:12 Magnesium 1.4 mg/dL (1.7-2.9) L 08/03/19 04:12 Total Bilirubin 0.10 mg/dL (0.2-1.0) L 08/03/19 04:12 AST 31 Units/L (15-37) 08/03/19 04:12 ALT 29 Units/L (12-78) 08/03/19 04:12 Alkaline Phosphatase 97 Units/L (46-116) 08/03/19 04:12 Creatine Kinase 28 Units/L (26-192) 07/31/19 18:08 CK-MB (CK-2) < 1.0 ng/mL (0-4.0) 07/31/19 18:08 CK/CKMB % Calc 3.6 % (<4) 07/31/19 18:08 Troponin I < 0.02 ng/mL (0-1.5) 07/31/19 18:08 Total Protein 7.1 g/dL (6.4-8.2) 08/03/19 04:12 Albumin 2.0 g/dL (3.4-5.0) L 08/03/19 04:12 Globulin 5.1 g/dL (2.5-4.5) H 08/03/19 04:12 Albumin/Globulin Ratio 0.4 Ratio (1.1-2.1) L 08/03/19 04:12 Amylase 9 Units/L (25-115) L 07/31/19 18:08 Lipase 30 Units/L (73-393) L 07/31/19 18:08 Specimen Type Clean catch urine 07/31/19 17:35 Urine Color Pale yellow (YELLOW) 07/31/19 17:35 Urine Appearance Clear (CLEAR) 07/31/19 17:35 Urine pH 6.0 (5.0 - 8.0) 07/31/19 17:35 Ur Specific [place] 1.010 (1.000-1.030) 07/31/19 17:35 Urine Protein 2+ (NEGATIVE) 07/31/19 17:35 Urine Glucose (UA) 4+ (NEGATIVE) 07/31/19 17:35 Urine Ketones 3+ (NEGATIVE) 07/31/19 17:35 Urine Occult Blood 2+ (NEGATIVE) 07/31/19 17:35 Urine Nitrite Negative (NEGATIVE) 07/31/19 17:35 Urine Bilirubin Negative (NEGATIVE) 07/31/19 17:35 Urine Urobilinogen Normal (NORMAL) 07/31/19 17:35 Ur Leukocyte Esterase Negative (NEGATIVE) 07/31/19 17:35 Urine RBC 0-2 /HPF (0-3) 07/31/19 17:35 Urine WBC None seen /HPF (0-5) 07/31/19 17:35 Ur Squamous Epith Cells Negative /HPF (NEGATIVE) 07/31/19 17:35 Urine Bacteria Negative /HPF (NEGATIVE) 07/31/19 17:35 Ur Culture Indicated? No/not indicated 07/31/19 17:35 Tobramycin Peak 2.6 ug/mL (4-8) L 08/02/19 10:28 Tobramycin Trough 0 ug/mL (0-2) 08/02/19 08:40 Urine Opiates Screen Negative (NEG=<300) 07/31/19 17:35 Urine Methadone Screen Negative (NEG=<300) 07/31/19 17:35 Ur Barbiturates Screen Negative (NEG=<200) 07/31/19 17:35 Ur Phencyclidine Scrn Negative (NEG=<25) 07/31/19 17:35 Ur Amphetamines Screen Negative (NEG=<1000) 07/31/19 17:35 U Benzodiazepines Scrn Negative (NEG=<200) 07/31/19 17:35 Urine Cocaine Screen Negative (NEG=<300) 07/31/19 17:35 U Marijuana (THC) Screen Negative (NEG=<50) 07/31/19 17:35 Acetone, Semi-Quant Cancelled 08/01/19 00:13 Influenza Type A (PCR) Negative (NEGATIVE) 07/31/19 18:09 Influenza Type B (PCR) Negative (NEGATIVE) 07/31/19 18:09 - Plan (1) Perinephric abscess Status: Acute Plan: ICU, IV HYDRATION. CT ABD/PELVIS ON ADMISSION, REPEAT ON SATURDAY AM. BS CONTROL, BLOOD AND URINE CULTURES. IV ANTIBIOTICS, ELECTROLTE REPLACEMENT. CONTINOUS CARDIAC MONITORING, LACTIC ACID, ABG IN ER. STRICT I& OS (2) Hyponatremia Status: Acute (3) Diabetes mellitus Status: Acute Qualifiers: Diabetes mellitus type: other specified (including SEAN) Diabetes mellitus half-way insulin use: without half-way use Diabetes mellitus complication status: with hyperglycemia Qualified Code(s): E13.65 - Other specified diabetes mellitus with hyperglycemia (4) Hypokalemia Status: Acute
--- NOTE | 2019-08-03 12:14 | PCM.PROG ---
Progress Note - Progress Note for Day of Date of Exam: 08/01/19 - Subjective Subjective: Pt is 23F admitted with left perirenal abscess. Pt has hyponatremia and hypokalemia, na 131 today, k + 2.7. Pt is currently receiving gentle IV hydration and electrolyte replacement.Pt had urine and blood cultures collected on admission and is currently on tobramycin and rocephin. Pt continues to co left flank and mid left abdominal pain,no nausea or vomiting and occasional chills . - Past Medical Family Social History Past Med/Fam/Surg Hx: No changes since H&P Allergies: Allergies Sulfa (Sulfonamide Antibiotics) Allergy (Verified 07/31/19 23:40) - Review of Systems ROS: No change since H&P - Vital Signs and I&O's Vital Signs: Temperature 98.0 F Pulse Rate [Apical] 110 Pulse Rate 94 Respiratory Rate 17 Blood Pressure [Left Arm] 120/78 Blood Pressure 114/72 O2 Sat by Pulse Oximetry 100 Intake and Output: Intake & Output 08/01/19 08/02/19 08/03/19 08/04/19 11:59 11:59 11:59 11:59 Intake Total 4461.4 / 4461.4 4646.6 / 4646.6 5597 / 5597 Output Total 351 / 351 2750 / 2750 2100 / 2100 Balance 4110.4 / 4110.4 1896.6 / 1896.6 3497 / 3497 - Physical Exam Oriented: Normal Eyes: Normal Ear: Normal Nose: Normal Throat: Normal Respiratory: Normal Cardiovascular: Normal : Frequency (soft , flat abdomen with Lt side denderness . BS+) Auscultation: Bowel Sounds: Normal Tenderness: LUQ, Moderate Skin: Decreased Turgur Musculoskeletal: Back:Thoracic, Back:Lumbar, Tender Psychiatric: Anxiety Affect: Anxious Speech Pattern: Clear, Appropriate - Laboratory and Diagnostics Result Diagrams: 08/03/19 04:12 08/03/19 08:07 Labs: 07/31/19 19:41 Blood Blood Culture - Preliminary 08/01/19 11:45 Urine,Clean Catch Urine Culture - Final 07/31/19 11:45 Blood Blood Culture - Preliminary Laboratory WBC 13.0 X10^3/uL (3.6-10.0) H 08/03/19 04:12 RBC 4.10 X10^6/uL (3.5-5.4) 08/03/19 04:12 Hgb 9.3 g/dL (12.0-16.0) L 08/03/19 04:12 Hct 28.6 % (36.0-47.0) L 08/03/19 04:12 MCV 69.8 fL (80.0-100.0) L 08/03/19 04:12 MCH 22.6 pg (27.0-34.0) L 08/03/19 04:12 MCHC 32.5 g/dL (33.0-35.0) L 08/03/19 04:12 RDW 16.1 % (11.6-16.5) 08/03/19 04:12 Plt Count 498 X10^3/uL (150.0-450.0) H 08/03/19 04:12 Plt Count Comment Adequate (ADEQUATE) 08/03/19 04:12 MPV 8.0 fL (7.4-11.0) 08/03/19 04:12 Neut % (Auto) 71.1 % (42.0-75.0) 08/03/19 04:12 Lymph % (Auto) 20.0 % (21.0-51.0) L 08/03/19 04:12 [place] % (Auto) 7.9 % (0.0-13.0) 08/03/19 04:12 Eos % (Auto) 0.6 % (0.9-2.9) L 08/03/19 04:12 Baso % (Auto) 0.4 % (0.2-1.0) 08/03/19 04:12 Neut # (Auto) 9.2 x10^3/uL (2.2-4.8) H 08/03/19 04:12 Lymph # (Auto) 2.6 X10^3/uL (1.3-2.9) 08/03/19 04:12 [place] # (Auto) 1.0 x10^3/uL (0.3-0.8) H 08/03/19 04:12 Eos # (Auto) 0.1 x10^3/uL (0.0-0.2) 08/03/19 04:12 Baso # (Auto) 0.1 X10^3/uL (0.0-0.1) 08/03/19 04:12 Absolute Nucleated RBC 0.0 /100WBC 08/03/19 04:12 Plt Morphology Comment Normal (NORMAL) 08/03/19 04:12 RBC Morphology Abnormal (NORMAL) A 08/03/19 04:12 Hypochromasia Slight A 08/03/19 04:12 Microcytosis 1+ A 08/03/19 04:12 PT 14.8 SECONDS (11.8-14.3) 08/03/19 04:12 INR Target Range - 08/03/19 04:12 INR 1.20 (0.8-1.3) 08/03/19 04:12 Sample Site Rb 07/31/19 21:00 ABG pH 7.400 (7.35-7.45) 07/31/19 21:00 ABG pCO2 33.0 mmHg (35.0-45.0) L 07/31/19 21:00 ABG pO2 93.0 mmHg (80.0-100.0) 07/31/19 21:00 ABG HCO3 20.4 mmol/L (22-26) L 07/31/19 21:00 ABG O2 Saturation 97.0 % (90-100) 07/31/19 21:00 ABG Base Excess -3.6 mmol/L (-2.0-2.0) L 07/31/19 21:00 Lam Test N/a 07/31/19 21:00 A-a Gradient 15.0 mmHg 07/31/19 21:00 FiO2 21.0 07/31/19 21:00 Blood Gas Comments Irma well ae 07/31/19 21:00 Sodium 139 mmol/L (136-145) 08/03/19 04:12 Corrected Sodium 140 mmol/L (136-145) 08/03/19 04:12 Potassium 3.9 mmol/L (3.5-5.1) 08/03/19 08:07 Chloride 101 mmol/L (98-107) 08/03/19 04:12 Carbon Dioxide 27.8 mmol/L (21-32) 08/03/19 04:12 BUN 1 mg/dL (7-18) L 08/03/19 04:12 Creatinine 0.55 mg/dL (0.55-1.02) 08/03/19 04:12 Est GFR (MDRD) Af Amer > 60 (>60) 08/03/19 04:12 Est GFR (MDRD) Non-Af > 60 (>60) 08/03/19 04:12 Glucose 146 mg/dL (65-99) H 08/03/19 04:12 POC Glucose (mg/dL) 217 mg/dL (65-99) H 08/03/19 11:03 Lactic Acid 0.7 mmol/L (0.4-2.0) 08/02/19 04:29 Calcium 8.9 mg/dL (8.5-10.1) 08/03/19 04:12 Corrected Calcium 10.5 mg/dL (8.5-10.1) H 08/03/19 04:12 Magnesium 1.4 mg/dL (1.7-2.9) L 08/03/19 04:12 Total Bilirubin 0.10 mg/dL (0.2-1.0) L 08/03/19 04:12 AST 31 Units/L (15-37) 08/03/19 04:12 ALT 29 Units/L (12-78) 08/03/19 04:12 Alkaline Phosphatase 97 Units/L (46-116) 08/03/19 04:12 Creatine Kinase 28 Units/L (26-192) 07/31/19 18:08 CK-MB (CK-2) < 1.0 ng/mL (0-4.0) 07/31/19 18:08 CK/CKMB % Calc 3.6 % (<4) 07/31/19 18:08 Troponin I < 0.02 ng/mL (0-1.5) 07/31/19 18:08 Total Protein 7.1 g/dL (6.4-8.2) 08/03/19 04:12 Albumin 2.0 g/dL (3.4-5.0) L 08/03/19 04:12 Globulin 5.1 g/dL (2.5-4.5) H 08/03/19 04:12 Albumin/Globulin Ratio 0.4 Ratio (1.1-2.1) L 08/03/19 04:12 Amylase 9 Units/L (25-115) L 07/31/19 18:08 Lipase 30 Units/L (73-393) L 07/31/19 18:08 Specimen Type Clean catch urine 07/31/19 17:35 Urine Color Pale yellow (YELLOW) 07/31/19 17:35 Urine Appearance Clear (CLEAR) 07/31/19 17:35 Urine pH 6.0 (5.0 - 8.0) 07/31/19 17:35 Ur Specific [place] 1.010 (1.000-1.030) 07/31/19 17:35 Urine Protein 2+ (NEGATIVE) 07/31/19 17:35 Urine Glucose (UA) 4+ (NEGATIVE) 07/31/19 17:35 Urine Ketones 3+ (NEGATIVE) 07/31/19 17:35 Urine Occult Blood 2+ (NEGATIVE) 07/31/19 17:35 Urine Nitrite Negative (NEGATIVE) 07/31/19 17:35 Urine Bilirubin Negative (NEGATIVE) 07/31/19 17:35 Urine Urobilinogen Normal (NORMAL) 07/31/19 17:35 Ur Leukocyte Esterase Negative (NEGATIVE) 07/31/19 17:35 Urine RBC 0-2 /HPF (0-3) 07/31/19 17:35 Urine WBC None seen /HPF (0-5) 07/31/19 17:35 Ur Squamous Epith Cells Negative /HPF (NEGATIVE) 07/31/19 17:35 Urine Bacteria Negative /HPF (NEGATIVE) 07/31/19 17:35 Ur Culture Indicated? No/not indicated 07/31/19 17:35 Tobramycin Peak 2.6 ug/mL (4-8) L 08/02/19 10:28 Tobramycin Trough 0 ug/mL (0-2) 08/02/19 08:40 Urine Opiates Screen Negative (NEG=<300) 07/31/19 17:35 Urine Methadone Screen Negative (NEG=<300) 07/31/19 17:35 Ur Barbiturates Screen Negative (NEG=<200) 07/31/19 17:35 Ur Phencyclidine Scrn Negative (NEG=<25) 07/31/19 17:35 Ur Amphetamines Screen Negative (NEG=<1000) 07/31/19 17:35 U Benzodiazepines Scrn Negative (NEG=<200) 07/31/19 17:35 Urine Cocaine Screen Negative (NEG=<300) 07/31/19 17:35 U Marijuana (THC) Screen Negative (NEG=<50) 07/31/19 17:35 Acetone, Semi-Quant Cancelled 08/01/19 00:13 Influenza Type A (PCR) Negative (NEGATIVE) 07/31/19 18:09 Influenza Type B (PCR) Negative (NEGATIVE) 07/31/19 18:09 - Plan (1) Perinephric abscess Status: Acute Plan: ICU, IV HYDRATION. CT ABD/PELVIS ON ADMISSION, CONTINUE WITH BS CONTROL, BLOOD AND URINE CULTURES. IV ANTIBIOTICS, ELECTROLTE REPLACEMENT. CONTINOUS CARDIAC MONITORING, LACTIC ACID, ABG IN ER. STRICT I& OS (2) Hyponatremia Status: Acute (3) Diabetes mellitus Status: Acute Qualifiers: Diabetes mellitus type: other specified (including SEAN) Diabetes mellitus lobsterman insulin use: without lobsterman use Diabetes mellitus complication status: with hyperglycemia Qualified Code(s): E13.65 - Other specified diabetes mellitus with hyperglycemia (4) Hypokalemia Status: Acute
[2019-08-03] MEDS ORDERED: NS 500 ML IV 500 ML IV ONE ×2 (12:45→13:09)
[2019-08-03] MEDS ORDERED: DILAUDID INJ IVP PRN (15:18)
[2019-08-03] MEDS ORDERED: DILAUDID INJ ONE (15:22)
[2019-08-03 15:30] LABS: CREATININE 0.56 mg/dL (0.55-1.02); TOBRAMYCIN,TROUGH 0.2 ug/mL (0-2)
[2019-08-03] MEDS: HumuLIN R SUBCUT PRN ×2 (15:40→20:15)
[2019-08-03] MEDS ORDERED: DILAUDID INJ IVP ONE (15:52)
[2019-08-03] MEDS ORDERED: SNACK - Diabetic Appropriate PO SCH (20:00)
[2019-08-03] MEDS: SNACK - Diabetic Appropriate PO SCH (20:52)
[2019-08-03] MEDS: ROCEPHIN VIAL 1 GRAM 1 G in NS 100 ML IV + SPIKE MINIBAG* 100 ML IV SCH (20:53)
[2019-08-03] MEDS: NORCO 10/325 TAB PO PRN (21:25)
[2019-08-04] MEDS: NS 1/2 + KCL 20 MEQ/L 1,000 ML IV SCH ×6 (01:02→23:59)
[2019-08-04] MEDS: NORCO 10/325 TAB PO PRN (04:07)
[2019-08-04 05:11] LABS: BASOPHILS # (AUTO) 0.1 X10^3/uL (0.0-0.1); BASOPHILS % (AUTO) 0.6 % (0.2-1.0); EOSINOPHILS # (AUTO) 0.1 x10^3/uL (0.0-0.2); HEMATOCRIT 28.3 % (36.0-47.0); HEMOGLOBIN 9.1 g/dL (12.0-16.0); LYMPHOCYTES # (AUTO) 1.9 X10^3/uL (1.3-2.9); LYMPHOCYTES % (AUTO) 19.6 % (21.0-51.0); MEAN CORPUSCULAR HEMOGLOBIN 22.6 pg (27.0-34.0); MEAN CORPUSCULAR HGB CONC 32.2 g/dL (33.0-35.0); MEAN CORPUSCULAR VOLUME 70.1 fL (80.0-100.0); MEAN PLATELET VOLUME 8.1 fL (7.4-11.0); MONOCYTES # (AUTO) 0.7 x10^3/uL (0.3-0.8); MONOCYTES % (AUTO) 7.6 % (0.0-13.0); NEUTROPHILS # (AUTO) 6.9 x10^3/uL (2.2-4.8); NEUTROPHILS % (AUTO) 71.2 % (42.0-75.0); PLATELET COUNT 512 X10^3/uL (150.0-450.0); RED BLOOD COUNT 4.03 X10^6/uL (3.5-5.4); RED CELL DISTRIBUTION WIDTH 16.3 % (11.6-16.5); WHITE BLOOD COUNT 9.7 X10^3/uL (3.6-10.0)
[2019-08-04 05:15] LABS: ALANINE AMINOTRANSFERASE 25 Units/L (12-78); ALKALINE PHOSPHATASE 92 Units/L (46-116); ASPARTATE AMINO TRANSFERASE 20 Units/L (15-37); BLOOD UREA NITROGEN 2 mg/dL (7-18); CALCIUM 8.6 mg/dL (8.5-10.1); CHLORIDE 101 mmol/L (98-107); COR CA(FOR HYPOALB) 10.2 mg/dL (8.5-10.1); COR NA(FOR HYPERGLY) 139 mmol/L (136-145); CREATININE 0.54 mg/dL (0.55-1.02); MAGNESIUM 1.5 mg/dL (1.7-2.9); SODIUM 137 mmol/L (136-145); TOTAL PROTEIN 7.1 g/dL (6.4-8.2); eGFR NON BLACK RACES > 60 (>60)
[2019-08-04 05:32] LABS: PLATELET MORPHOLOGY COMMENT NORMAL (NORMAL)
[2019-08-04 05:33] LABS: HYPOCHROMASIA 1+
[2019-08-04] MEDS: TOBRAMYCIN SULFATE 80 MG in NS 100 ML IV 100 ML IV SCH (05:46)
[2019-08-04] MEDS: HumuLIN R SUBCUT PRN ×4 (07:45→21:30)
[2019-08-04] MEDS ORDERED: NS 100 ML IV 100 ML with VENOFER 400 MG IV NR ×2 (08:46)
--- NOTE | 2019-08-04 08:50 | CT ---
HISTORY: Retroperitoneal abscess Study: CT-guided left retroperitoneal abscess drainage Comparison: July 31, 2019 Procedure: The risks, benefits, and alternatives were discussed. Informed consent was obtained. Time out was performed. The patient was prepped, draped, and anesthetized in the usual sterile fashion. Subsequently, a 5 [place] catheter was advanced into the fluid collection with purulent fluid aspirated. A guidewire was advanced followed by an 8 [place] dilator and finally a 10 [place] pigtail catheter with approximately 150 cc of purulent fluid aspirated. The catheter was flushed and fixed in the usual fashion. The patient tolerated the procedure well without immediate postprocedure complication. IMPRESSION: Technically successful CT-guided abscess drain. Reported By:
[2019-08-04] MEDS: PEPCID TAB 20 MG PO SCH ×2 (08:54→21:04)
[2019-08-04] MEDS: GLUCOPHAGE XR PO SCH ×2 (08:54→21:04)
[2019-08-04] MEDS: ACTOS PO SCH (08:54)
[2019-08-04] MEDS ORDERED: VANCOMYCIN HCL 1 G in D5W 250 ML IV 250 ML IV ONE ×2 (10:16→13:00)
[2019-08-04] MEDS: NORCO 7.5/325 MG TAB PO PRN ×3 (10:34→22:18)
[2019-08-04] MEDS ORDERED: PHARMACY CONSULT - VANCOMYCIN XX SCH (11:00)
[2019-08-04] MEDS ORDERED: NS 250 ML IV 250 ML IV ONE (13:21)
[2019-08-04] MEDS: VANCOMYCIN HCL 1 G in NS 250 ML IV 250 ML IV SCH ×2 (13:33→22:16)
[2019-08-04] MEDS: ZOFRAN INJ 4 MG VIAL IVP PRN (13:51)
--- NOTE | 2019-08-04 16:35 | DR.PROGNOT ---
Hospital Progress Notes - Progress Note for Day of: Progress Note Date: 08/04/19 - Chief Complaint Chief Complaint: abscess culture is staph coag + ( renal abscess rather than colon ) . moderate Lt flank and Lt abdominal pain . no nausea or vomiting . occasional chills with low grade fever . moderate drainage in the bag . - Past Medical Family Social History Past Med/Fam/Surg Hx: No changes since H&P Allergies: Allergies Sulfa (Sulfonamide Antibiotics) Allergy (Verified 07/31/19 23:40) - Review Of Systems ROS: No change since H&P - Vital Signs Vital Signs: Temperature 99.3 F Pulse Rate [Apical] 110 Pulse Rate 123 Respiratory Rate 20 Blood Pressure [Left Arm] 120/78 Blood Pressure 114/65 O2 Sat by Pulse Oximetry 97 - Physical Exam Oriented: Normal Eyes: Normal Ear: Normal Nose: Normal Throat: Normal Respiratory: Normal Cardiovascular: Normal : Frequency (soft , flat abdomen with Lt side denderness . BS+) GI:Auscultation: Normal GI:Palpation: Other (Lt flank tendr mass .) GI: Tenderness: LUQ, Moderate Skin: Decreased Turgur Musculoskeletal: Back:Thoracic, Back:Lumbar, Tender Psychiatric: Anxiety Affect: Anxious Speech Pattern: Clear, Appropriate - Laboratory and Diagnostics Result Diagrams: 08/04/19 04:06 08/04/19 04:06 Labs: 08/03/19 14:00 Kidney Gram Stain - Final 08/03/19 14:00 Kidney - Preliminary 07/31/19 19:41 Blood Blood Culture - Final Staphylococcus Aureus 07/31/19 11:45 Blood Blood Culture - Preliminary 08/01/19 11:45 Urine,Clean Catch Urine Culture - Final Laboratory WBC 9.7 X10^3/uL (3.6-10.0) 08/04/19 04:06 RBC 4.03 X10^6/uL (3.5-5.4) 08/04/19 04:06 Hgb 9.1 g/dL (12.0-16.0) L 08/04/19 04:06 Hct 28.3 % (36.0-47.0) L 08/04/19 04:06 MCV 70.1 fL (80.0-100.0) L 08/04/19 04:06 MCH 22.6 pg (27.0-34.0) L 08/04/19 04:06 MCHC 32.2 g/dL (33.0-35.0) L 08/04/19 04:06 RDW 16.3 % (11.6-16.5) 08/04/19 04:06 Plt Count 512 X10^3/uL (150.0-450.0) H 08/04/19 04:06 Plt Count Comment Increased (ADEQUATE) A 08/04/19 04:06 MPV 8.1 fL (7.4-11.0) 08/04/19 04:06 Neut % (Auto) 71.2 % (42.0-75.0) 08/04/19 04:06 Lymph % (Auto) 19.6 % (21.0-51.0) L 08/04/19 04:06 [place] % (Auto) 7.6 % (0.0-13.0) 08/04/19 04:06 Eos % (Auto) 1.0 % (0.9-2.9) 08/04/19 04:06 Baso % (Auto) 0.6 % (0.2-1.0) 08/04/19 04:06 Neut # (Auto) 6.9 x10^3/uL (2.2-4.8) H 08/04/19 04:06 Lymph # (Auto) 1.9 X10^3/uL (1.3-2.9) 08/04/19 04:06 [place] # (Auto) 0.7 x10^3/uL (0.3-0.8) 08/04/19 04:06 Eos # (Auto) 0.1 x10^3/uL (0.0-0.2) 08/04/19 04:06 Baso # (Auto) 0.1 X10^3/uL (0.0-0.1) 08/04/19 04:06 Absolute Nucleated RBC 0.0 /100WBC 08/04/19 04:06 Plt Morphology Comment Normal (NORMAL) 08/04/19 04:06 RBC Morphology Abnormal (NORMAL) A 08/04/19 04:06 Hypochromasia 1+ A 08/04/19 04:06 Microcytosis 1+ A 08/03/19 04:12 PT 14.8 SECONDS (11.8-14.3) 08/03/19 04:12 INR Target Range - 08/03/19 04:12 INR 1.20 (0.8-1.3) 08/03/19 04:12 Sample Site Rb 07/31/19 21:00 ABG pH 7.400 (7.35-7.45) 07/31/19 21:00 ABG pCO2 33.0 mmHg (35.0-45.0) L 07/31/19 21:00 ABG pO2 93.0 mmHg (80.0-100.0) 07/31/19 21:00 ABG HCO3 20.4 mmol/L (22-26) L 07/31/19 21:00 ABG O2 Saturation 97.0 % (90-100) 07/31/19 21:00 ABG Base Excess -3.6 mmol/L (-2.0-2.0) L 07/31/19 21:00 Lam Test N/a 07/31/19 21:00 A-a Gradient 15.0 mmHg 07/31/19 21:00 FiO2 21.0 07/31/19 21:00 Blood Gas Comments Irma well ae 07/31/19 21:00 Sodium 137 mmol/L (136-145) 08/04/19 04:06 Corrected Sodium 139 mmol/L (136-145) 08/04/19 04:06 Potassium 4.2 mmol/L (3.5-5.1) 08/04/19 04:06 Chloride 101 mmol/L (98-107) 08/04/19 04:06 Carbon Dioxide 28.0 mmol/L (21-32) 08/04/19 04:06 BUN 2 mg/dL (7-18) L 08/04/19 04:06 Creatinine 0.54 mg/dL (0.55-1.02) L 08/04/19 04:06 Est GFR (MDRD) Af Amer > 60 (>60) 08/04/19 04:06 Est GFR (MDRD) Non-Af > 60 (>60) 08/04/19 04:06 Glucose 179 mg/dL (65-99) H 08/04/19 04:06 POC Glucose (mg/dL) 211 mg/dL (65-99) H 08/04/19 12:03 Lactic Acid 0.7 mmol/L (0.4-2.0) 08/02/19 04:29 Calcium 8.6 mg/dL (8.5-10.1) 08/04/19 04:06 Corrected Calcium 10.2 mg/dL (8.5-10.1) H 08/04/19 04:06 Magnesium 1.5 mg/dL (1.7-2.9) L 08/04/19 04:06 Total Bilirubin 0.10 mg/dL (0.2-1.0) L 08/04/19 04:06 AST 20 Units/L (15-37) 08/04/19 04:06 ALT 25 Units/L (12-78) 08/04/19 04:06 Alkaline Phosphatase 92 Units/L (46-116) 08/04/19 04:06 Creatine Kinase 28 Units/L (26-192) 07/31/19 18:08 CK-MB (CK-2) < 1.0 ng/mL (0-4.0) 07/31/19 18:08 CK/CKMB % Calc 3.6 % (<4) 07/31/19 18:08 Troponin I < 0.02 ng/mL (0-1.5) 07/31/19 18:08 Total Protein 7.1 g/dL (6.4-8.2) 08/04/19 04:06 Albumin 2.0 g/dL (3.4-5.0) L 08/04/19 04:06 Globulin 5.1 g/dL (2.5-4.5) H 08/04/19 04:06 Albumin/Globulin Ratio 0.4 Ratio (1.1-2.1) L 08/04/19 04:06 Amylase 9 Units/L (25-115) L 07/31/19 18:08 Lipase 30 Units/L (73-393) L 07/31/19 18:08 Specimen Type Clean catch urine 07/31/19 17:35 Urine Color Pale yellow (YELLOW) 07/31/19 17:35 Urine Appearance Clear (CLEAR) 07/31/19 17:35 Urine pH 6.0 (5.0 - 8.0) 07/31/19 17:35 Ur Specific [place] 1.010 (1.000-1.030) 07/31/19 17:35 Urine Protein 2+ (NEGATIVE) 07/31/19 17:35 Urine Glucose (UA) 4+ (NEGATIVE) 07/31/19 17:35 Urine Ketones 3+ (NEGATIVE) 07/31/19 17:35 Urine Occult Blood 2+ (NEGATIVE) 07/31/19 17:35 Urine Nitrite Negative (NEGATIVE) 07/31/19 17:35 Urine Bilirubin Negative (NEGATIVE) 07/31/19 17:35 Urine Urobilinogen Normal (NORMAL) 07/31/19 17:35 Ur Leukocyte Esterase Negative (NEGATIVE) 07/31/19 17:35 Urine RBC 0-2 /HPF (0-3) 07/31/19 17:35 Urine WBC None seen /HPF (0-5) 07/31/19 17:35 Ur Squamous Epith Cells Negative /HPF (NEGATIVE) 07/31/19 17:35 Urine Bacteria Negative /HPF (NEGATIVE) 07/31/19 17:35 Ur Culture Indicated? No/not indicated 07/31/19 17:35 Tobramycin Peak 2.4 ug/mL (4-8) L 08/03/19 17:40 Tobramycin Trough 0.2 ug/mL (0-2) 08/03/19 15:08 Urine Opiates Screen Negative (NEG=<300) 07/31/19 17:35 Urine Methadone Screen Negative (NEG=<300) 07/31/19 17:35 Ur Barbiturates Screen Negative (NEG=<200) 07/31/19 17:35 Ur Phencyclidine Scrn Negative (NEG=<25) 07/31/19 17:35 Ur Amphetamines Screen Negative (NEG=<1000) 07/31/19 17:35 U Benzodiazepines Scrn Negative (NEG=<200) 07/31/19 17:35 Urine Cocaine Screen Negative (NEG=<300) 07/31/19 17:35 U Marijuana (THC) Screen Negative (NEG=<50) 07/31/19 17:35 Acetone, Semi-Quant Cancelled 08/01/19 00:13 Influenza Type A (PCR) Negative (NEGATIVE) 07/31/19 18:09 Influenza Type B (PCR) Negative (NEGATIVE) 07/31/19 18:09 Cytology Specimen To follow 08/03/19 14:00 Tissue Pathology Cancelled 08/03/19 14:00 - Assessment and Plan 1: Lt perinephric abscess ,( successful drainage ). sepsis with fever , tachycardia. DM . recurrent UTI . drug user . same IV ATB for 2 more days at least .. - Problem Patient Problems: Patient Problems Renal lesion (Acute) N28.9 Renal abscess (Acute) N15.1 Perinephric abscess (Acute) N15.1 Diabetes mellitus (Acute) E11.9 Metabolic acidosis due to diabetes mellitus (Acute) E11.69, E87.2 Hypokalemia (Acute) E87.6 Constipation (Acute) K59.00 Hyponatremia (Acute) E87.1
[2019-08-04] MEDS: MAGNESIUM SULFATE 1 GRAM/100 mL PREMIX 1 GM/100 ML BAG IV PRN ×2 (17:58→20:00)
[2019-08-04] MEDS ORDERED: PHARMACY COMMENT IV NR ×2 (21:30→22:30)
[2019-08-04] MEDS: SNACK - Diabetic Appropriate PO SCH (22:16)
[2019-08-05] MEDS ORDERED: MAALOX or MYLANTA PO PRN (02:44)
[2019-08-05] MEDS ORDERED: MAALOX or MYLANTA ONE (02:45)
[2019-08-05] MEDS: NS 1/2 + KCL 20 MEQ/L 1,000 ML IV SCH ×3 (03:15→20:57)
[2019-08-05] MEDS: VANCOMYCIN HCL 1 G in NS 250 ML IV 250 ML IV SCH ×3 (05:14→21:00)
[2019-08-05] MEDS: NORCO 7.5/325 MG TAB PO PRN ×3 (05:18→18:02)
[2019-08-05 05:22] LABS: BASOPHILS # (AUTO) 0.2 X10^3/uL (0.0-0.1); BASOPHILS % (AUTO) 1.8 % (0.2-1.0); EOSINOPHILS % (AUTO) 0.4 % (0.9-2.9); HEMATOCRIT 26.2 % (36.0-47.0); HEMOGLOBIN 8.6 g/dL (12.0-16.0); LYMPHOCYTES # (AUTO) 1.7 X10^3/uL (1.3-2.9); LYMPHOCYTES % (AUTO) 17.7 % (21.0-51.0); MEAN CORPUSCULAR HEMOGLOBIN 22.6 pg (27.0-34.0); MEAN CORPUSCULAR HGB CONC 32.8 g/dL (33.0-35.0); MEAN PLATELET VOLUME 7.7 fL (7.4-11.0); MONOCYTES % (AUTO) 10.2 % (0.0-13.0); NEUTROPHILS # (AUTO) 6.8 x10^3/uL (2.2-4.8); NEUTROPHILS % (AUTO) 69.9 % (42.0-75.0); PLATELET COUNT 464 X10^3/uL (150.0-450.0); RED CELL DISTRIBUTION WIDTH 16.9 % (11.6-16.5); WHITE BLOOD COUNT 9.7 X10^3/uL (3.6-10.0)
[2019-08-05 05:32] LABS: HYPOCHROMASIA 1+; MICROCYTOSIS SLIGHT; PLATELET MORPHOLOGY COMMENT NORMAL (NORMAL)
[2019-08-05 05:37] LABS: ALANINE AMINOTRANSFERASE 19 Units/L (12-78); ALBUMIN 1.9 g/dL (3.4-5.0); ALKALINE PHOSPHATASE 78 Units/L (46-116); ASPARTATE AMINO TRANSFERASE 12 Units/L (15-37); BLOOD UREA NITROGEN 2 mg/dL (7-18); CALCIUM 8.7 mg/dL (8.5-10.1); CARBON DIOXIDE 26.9 mmol/L (21-32); CHLORIDE 98 mmol/L (98-107); COR CA(FOR HYPOALB) 10.4 mg/dL (8.5-10.1); COR NA(FOR HYPERGLY) 137 mmol/L (136-145); CREATININE 0.56 mg/dL (0.55-1.02); MAGNESIUM 1.6 mg/dL (1.7-2.9); SODIUM 134 mmol/L (136-145); TOTAL PROTEIN 6.8 g/dL (6.4-8.2); eGFR NON BLACK RACES > 60 (>60)
[2019-08-05] MEDS: HumuLIN R SUBCUT PRN ×4 (05:42→20:54)
--- NOTE | 2019-08-05 06:00 | RAD ---
Acute abdomen series supine upright and chest Indication: History of left renal abscess Comparison: 07/31/2019 CT Findings: Chest radiograph is normal. There is no pneumothorax, effusion or consolidation. Catheter projects over the left abdomen in the region of the abscess seen on CT. No gross free air or pneumatosis seen. Gas and stool seen in the colon without dilated loop of small bowel identified Impression: Catheter projects over the left retroperitoneum, as seen on prior CT No new acute abnormality otherwise Reported By:
[2019-08-05] MEDS: ACTOS PO SCH (08:43)
[2019-08-05] MEDS: PEPCID TAB 20 MG PO SCH ×2 (08:44→20:54)
[2019-08-05] MEDS: GLUCOPHAGE XR PO SCH ×2 (08:44→20:56)
[2019-08-05] MEDS: MAGNESIUM SULFATE 1 GRAM/100 mL PREMIX 1 GM/100 ML BAG IV PRN (11:46)
--- NOTE | 2019-08-05 12:59 | DR.PROGNOT ---
Hospital Progress Notes - Progress Note for Day of: Progress Note Date: 08/05/19 - Chief Complaint Chief Complaint: feeling much better today . tolerating diet well and having normal BM . minimal drainage from the abscess cavity . - Past Medical Family Social History Past Med/Fam/Surg Hx: No changes since H&P Allergies: Allergies Sulfa (Sulfonamide Antibiotics) Allergy (Verified 07/31/19 23:40) - Review Of Systems ROS: No change since H&P - Vital Signs Vital Signs: Temperature 98.5 F Pulse Rate [Apical] 110 Pulse Rate 114 Respiratory Rate 20 Blood Pressure [Left Arm] 120/78 Blood Pressure 118/70 O2 Sat by Pulse Oximetry 98 - Physical Exam Oriented: Normal Eyes: Normal Ear: Normal Nose: Normal Throat: Normal Respiratory: Normal Cardiovascular: Normal : Frequency (soft , flat abdomen with Lt side denderness . BS+) GI:Auscultation: Normal GI:Palpation: Other (Lt flank tendr mass .) GI: Tenderness: LUQ, Moderate Skin: Decreased Turgur Musculoskeletal: Back:Thoracic, Back:Lumbar, Tender Psychiatric: Anxiety Affect: Anxious Speech Pattern: Clear, Appropriate - Laboratory and Diagnostics Result Diagrams: 08/05/19 04:58 08/05/19 04:58 Labs: 08/03/19 14:00 Kidney Gram Stain - Final 08/03/19 14:00 Kidney - Final Staphylococcus Aureus 07/31/19 19:41 Blood Blood Culture - Final Staphylococcus Aureus 07/31/19 11:45 Blood Blood Culture - Preliminary 08/01/19 11:45 Urine,Clean Catch Urine Culture - Final Laboratory WBC 9.7 X10^3/uL (3.6-10.0) 08/05/19 04:58 RBC 3.80 X10^6/uL (3.5-5.4) 08/05/19 04:58 Hgb 8.6 g/dL (12.0-16.0) L 08/05/19 04:58 Hct 26.2 % (36.0-47.0) L 08/05/19 04:58 MCV 69.0 fL (80.0-100.0) L 08/05/19 04:58 MCH 22.6 pg (27.0-34.0) L 08/05/19 04:58 MCHC 32.8 g/dL (33.0-35.0) L 08/05/19 04:58 RDW 16.9 % (11.6-16.5) H 08/05/19 04:58 Plt Count 464 X10^3/uL (150.0-450.0) H 08/05/19 04:58 Plt Count Comment Increased (ADEQUATE) A 08/05/19 04:58 MPV 7.7 fL (7.4-11.0) 08/05/19 04:58 Neut % (Auto) 69.9 % (42.0-75.0) 08/05/19 04:58 Lymph % (Auto) 17.7 % (21.0-51.0) L 08/05/19 04:58 [place] % (Auto) 10.2 % (0.0-13.0) 08/05/19 04:58 Eos % (Auto) 0.4 % (0.9-2.9) L 08/05/19 04:58 Baso % (Auto) 1.8 % (0.2-1.0) H 08/05/19 04:58 Neut # (Auto) 6.8 x10^3/uL (2.2-4.8) H 08/05/19 04:58 Lymph # (Auto) 1.7 X10^3/uL (1.3-2.9) 08/05/19 04:58 [place] # (Auto) 1.0 x10^3/uL (0.3-0.8) H 08/05/19 04:58 Eos # (Auto) 0.0 x10^3/uL (0.0-0.2) 08/05/19 04:58 Baso # (Auto) 0.2 X10^3/uL (0.0-0.1) H 08/05/19 04:58 Absolute Nucleated RBC 0.0 /100WBC 08/05/19 04:58 Plt Morphology Comment Normal (NORMAL) 08/05/19 04:58 RBC Morphology Abnormal (NORMAL) A 08/05/19 04:58 Hypochromasia 1+ A 08/05/19 04:58 Microcytosis Slight A 08/05/19 04:58 PT 14.8 SECONDS (11.8-14.3) 08/03/19 04:12 INR Target Range - 08/03/19 04:12 INR 1.20 (0.8-1.3) 08/03/19 04:12 Sample Site Rb 07/31/19 21:00 ABG pH 7.400 (7.35-7.45) 07/31/19 21:00 ABG pCO2 33.0 mmHg (35.0-45.0) L 07/31/19 21:00 ABG pO2 93.0 mmHg (80.0-100.0) 07/31/19 21:00 ABG HCO3 20.4 mmol/L (22-26) L 07/31/19 21:00 ABG O2 Saturation 97.0 % (90-100) 07/31/19 21:00 ABG Base Excess -3.6 mmol/L (-2.0-2.0) L 07/31/19 21:00 Lam Test N/a 07/31/19 21:00 A-a Gradient 15.0 mmHg 07/31/19 21:00 FiO2 21.0 07/31/19 21:00 Blood Gas Comments Irma well ae 07/31/19 21:00 Sodium 134 mmol/L (136-145) L 08/05/19 04:58 Corrected Sodium 137 mmol/L (136-145) 08/05/19 04:58 Potassium 4.3 mmol/L (3.5-5.1) 08/05/19 04:58 Chloride 98 mmol/L (98-107) 08/05/19 04:58 Carbon Dioxide 26.9 mmol/L (21-32) 08/05/19 04:58 BUN 2 mg/dL (7-18) L 08/05/19 04:58 Creatinine 0.56 mg/dL (0.55-1.02) 08/05/19 04:58 Est GFR (MDRD) Af Amer > 60 (>60) 08/05/19 04:58 Est GFR (MDRD) Non-Af > 60 (>60) 08/05/19 04:58 Glucose 242 mg/dL (65-99) H 08/05/19 04:58 POC Glucose (mg/dL) 262 mg/dL (65-99) H 08/05/19 11:47 Lactic Acid 0.7 mmol/L (0.4-2.0) 08/02/19 04:29 Calcium 8.7 mg/dL (8.5-10.1) 08/05/19 04:58 Corrected Calcium 10.4 mg/dL (8.5-10.1) H 08/05/19 04:58 Magnesium 1.6 mg/dL (1.7-2.9) L 08/05/19 04:58 Total Bilirubin 0.10 mg/dL (0.2-1.0) L 08/05/19 04:58 AST 12 Units/L (15-37) L 08/05/19 04:58 ALT 19 Units/L (12-78) 08/05/19 04:58 Alkaline Phosphatase 78 Units/L (46-116) 08/05/19 04:58 Creatine Kinase 28 Units/L (26-192) 07/31/19 18:08 CK-MB (CK-2) < 1.0 ng/mL (0-4.0) 07/31/19 18:08 CK/CKMB % Calc 3.6 % (<4) 07/31/19 18:08 Troponin I < 0.02 ng/mL (0-1.5) 07/31/19 18:08 Total Protein 6.8 g/dL (6.4-8.2) 08/05/19 04:58 Albumin 1.9 g/dL (3.4-5.0) L 08/05/19 04:58 Globulin 4.9 g/dL (2.5-4.5) H 08/05/19 04:58 Albumin/Globulin Ratio 0.4 Ratio (1.1-2.1) L 08/05/19 04:58 Amylase 9 Units/L (25-115) L 07/31/19 18:08 Lipase 30 Units/L (73-393) L 07/31/19 18:08 Specimen Type Clean catch urine 07/31/19 17:35 Urine Color Pale yellow (YELLOW) 07/31/19 17:35 Urine Appearance Clear (CLEAR) 07/31/19 17:35 Urine pH 6.0 (5.0 - 8.0) 07/31/19 17:35 Ur Specific [place] 1.010 (1.000-1.030) 07/31/19 17:35 Urine Protein 2+ (NEGATIVE) 07/31/19 17:35 Urine Glucose (UA) 4+ (NEGATIVE) 07/31/19 17:35 Urine Ketones 3+ (NEGATIVE) 07/31/19 17:35 Urine Occult Blood 2+ (NEGATIVE) 07/31/19 17:35 Urine Nitrite Negative (NEGATIVE) 07/31/19 17:35 Urine Bilirubin Negative (NEGATIVE) 07/31/19 17:35 Urine Urobilinogen Normal (NORMAL) 07/31/19 17:35 Ur Leukocyte Esterase Negative (NEGATIVE) 07/31/19 17:35 Urine RBC 0-2 /HPF (0-3) 07/31/19 17:35 Urine WBC None seen /HPF (0-5) 07/31/19 17:35 Ur Squamous Epith Cells Negative /HPF (NEGATIVE) 07/31/19 17:35 Urine Bacteria Negative /HPF (NEGATIVE) 07/31/19 17:35 Ur Culture Indicated? No/not indicated 07/31/19 17:35 Tobramycin Peak 2.4 ug/mL (4-8) L 08/03/19 17:40 Tobramycin Trough 0.2 ug/mL (0-2) 08/03/19 15:08 Urine Opiates Screen Negative (NEG=<300) 07/31/19 17:35 Urine Methadone Screen Negative (NEG=<300) 07/31/19 17:35 Ur Barbiturates Screen Negative (NEG=<200) 07/31/19 17:35 Ur Phencyclidine Scrn Negative (NEG=<25) 07/31/19 17:35 Ur Amphetamines Screen Negative (NEG=<1000) 07/31/19 17:35 U Benzodiazepines Scrn Negative (NEG=<200) 07/31/19 17:35 Urine Cocaine Screen Negative (NEG=<300) 07/31/19 17:35 U Marijuana (THC) Screen Negative (NEG=<50) 07/31/19 17:35 Acetone, Semi-Quant Cancelled 08/01/19 00:13 Influenza Type A (PCR) Negative (NEGATIVE) 07/31/19 18:09 Influenza Type B (PCR) Negative (NEGATIVE) 07/31/19 18:09 Cytology Specimen To follow 08/03/19 14:00 Tissue Pathology Cancelled 08/03/19 14:00 - Assessment and Plan 1: Lt perinephric abscess ,( successful drainage ). DM . drug user . same IV ATB . could be d/c in am leaving the drain in place with F/U on saturday. repeat CT as OP before removing the drain - Problem Patient Problems: Patient Problems Renal lesion (Acute) N28.9 Renal abscess (Acute) N15.1 Perinephric abscess (Acute) N15.1 Diabetes mellitus (Acute) E11.9 Metabolic acidosis due to diabetes mellitus (Acute) E11.69, E87.2 Hypokalemia (Acute) E87.6 Constipation (Acute) K59.00 Hyponatremia (Acute) E87.1
[2019-08-05] MEDS ORDERED: PHARMACY COMMENT IV NR (13:30)
[2019-08-05 13:59] LABS: CREATININE 0.63 mg/dL (0.55-1.02); VANCOMYCIN,TROUGH 5.1 ug/mL (15-20)
[2019-08-05] MEDS: SNACK - Diabetic Appropriate PO SCH (20:54)
[2019-08-06] MEDS: NORCO 7.5/325 MG TAB PO PRN ×2 (00:13→07:33)
[2019-08-06] MEDS: NS 1/2 + KCL 20 MEQ/L 1,000 ML IV SCH ×4 (00:22→16:43)
[2019-08-06 04:51] LABS: BASOPHILS % (AUTO) 0.2 % (0.2-1.0); EOSINOPHILS # (AUTO) 0.1 x10^3/uL (0.0-0.2); EOSINOPHILS % (AUTO) 0.5 % (0.9-2.9); HEMOGLOBIN 8.5 g/dL (12.0-16.0); LYMPHOCYTES # (AUTO) 2.2 X10^3/uL (1.3-2.9); MEAN CORPUSCULAR HEMOGLOBIN 22.1 pg (27.0-34.0); MEAN CORPUSCULAR HGB CONC 31.5 g/dL (33.0-35.0); MEAN CORPUSCULAR VOLUME 70.2 fL (80.0-100.0); MEAN PLATELET VOLUME 7.7 fL (7.4-11.0); MONOCYTES # (AUTO) 1.3 x10^3/uL (0.3-0.8); MONOCYTES % (AUTO) 10.9 % (0.0-13.0); NEUTROPHILS # (AUTO) 8.7 x10^3/uL (2.2-4.8); NEUTROPHILS % (AUTO) 70.4 % (42.0-75.0); PLATELET COUNT 474 X10^3/uL (150.0-450.0); RED BLOOD COUNT 3.85 X10^6/uL (3.5-5.4); WHITE BLOOD COUNT 12.3 X10^3/uL (3.6-10.0)
[2019-08-06 05:11] LABS: ALANINE AMINOTRANSFERASE 20 Units/L (12-78); ALBUMIN 1.9 g/dL (3.4-5.0); ALKALINE PHOSPHATASE 72 Units/L (46-116); ASPARTATE AMINO TRANSFERASE 16 Units/L (15-37); BLOOD UREA NITROGEN 3 mg/dL (7-18); CALCIUM 8.8 mg/dL (8.5-10.1); CARBON DIOXIDE 27.7 mmol/L (21-32); CHLORIDE 99 mmol/L (98-107); COR CA(FOR HYPOALB) 10.5 mg/dL (8.5-10.1); COR NA(FOR HYPERGLY) 136 mmol/L (136-145); CREATININE 0.53 mg/dL (0.55-1.02); SODIUM 134 mmol/L (136-145); TOTAL PROTEIN 7.1 g/dL (6.4-8.2); eGFR NON BLACK RACES > 60 (>60)
[2019-08-06] MEDS: VANCOMYCIN HCL 1 G in NS 250 ML IV 250 ML IV SCH ×2 (05:40→14:22)
[2019-08-06] MEDS: HumuLIN R SUBCUT PRN ×4 (05:41→21:09)
[2019-08-06 05:46] LABS: HYPOCHROMASIA 1+; PLATELET MORPHOLOGY COMMENT NORMAL (NORMAL)
[2019-08-06] MEDS: ACTOS PO SCH (09:06)
[2019-08-06] MEDS: GLUCOPHAGE XR PO SCH ×2 (09:06→21:08)
[2019-08-06] MEDS: PEPCID TAB 20 MG PO SCH ×2 (09:08→21:09)
--- NOTE | 2019-08-06 11:01 | DR.PROGNOT ---
Hospital Progress Notes - Progress Note for Day of: Progress Note Date: 08/06/19 - Chief Complaint Chief Complaint: was having low grade fever . only moderate Lt side pain . tolerating diet well and having normal BM . minimal drainage from the abscess cavity . - Past Medical Family Social History Past Med/Fam/Surg Hx: No changes since H&P Allergies: Allergies Sulfa (Sulfonamide Antibiotics) Allergy (Verified 07/31/19 23:40) - Review Of Systems ROS: No change since H&P - Vital Signs Vital Signs: Temperature 98.9 F Pulse Rate [Apical] 110 Pulse Rate 108 Respiratory Rate 18 Blood Pressure [Left Arm] 120/78 Blood Pressure 110/58 O2 Sat by Pulse Oximetry 100 - Physical Exam Oriented: Normal Eyes: Normal Ear: Normal Nose: Normal Throat: Normal Respiratory: Normal Cardiovascular: Normal : Frequency (soft , flat abdomen with Lt side denderness . BS+) GI:Auscultation: Normal GI:Palpation: Other (Lt flank tendr mass .) GI: Tenderness: LUQ (soft abdomen BS+), Mild Skin: Decreased Turgur Musculoskeletal: Back:Thoracic, Back:Lumbar, Tender Psychiatric: Anxiety Affect: Anxious Speech Pattern: Clear, Appropriate - Laboratory and Diagnostics Result Diagrams: 08/06/19 04:38 08/06/19 04:38 Labs: 07/31/19 11:45 Blood Blood Culture - Final 08/03/19 14:00 Kidney Gram Stain - Final 08/03/19 14:00 Kidney - Final Staphylococcus Aureus 07/31/19 19:41 Blood Blood Culture - Final Staphylococcus Aureus 08/01/19 11:45 Urine,Clean Catch Urine Culture - Final Laboratory WBC 12.3 X10^3/uL (3.6-10.0) H 08/06/19 04:38 RBC 3.85 X10^6/uL (3.5-5.4) 08/06/19 04:38 Hgb 8.5 g/dL (12.0-16.0) L 08/06/19 04:38 Hct 27.0 % (36.0-47.0) L 08/06/19 04:38 MCV 70.2 fL (80.0-100.0) L 08/06/19 04:38 MCH 22.1 pg (27.0-34.0) L 08/06/19 04:38 MCHC 31.5 g/dL (33.0-35.0) L 08/06/19 04:38 RDW 17.0 % (11.6-16.5) H 08/06/19 04:38 Plt Count 474 X10^3/uL (150.0-450.0) H 08/06/19 04:38 Plt Count Comment Adequate (ADEQUATE) 08/06/19 04:38 MPV 7.7 fL (7.4-11.0) 08/06/19 04:38 Neut % (Auto) 70.4 % (42.0-75.0) 08/06/19 04:38 Lymph % (Auto) 18.0 % (21.0-51.0) L 08/06/19 04:38 [place] % (Auto) 10.9 % (0.0-13.0) 08/06/19 04:38 Eos % (Auto) 0.5 % (0.9-2.9) L 08/06/19 04:38 Baso % (Auto) 0.2 % (0.2-1.0) 08/06/19 04:38 Neut # (Auto) 8.7 x10^3/uL (2.2-4.8) H 08/06/19 04:38 Lymph # (Auto) 2.2 X10^3/uL (1.3-2.9) 08/06/19 04:38 [place] # (Auto) 1.3 x10^3/uL (0.3-0.8) H 08/06/19 04:38 Eos # (Auto) 0.1 x10^3/uL (0.0-0.2) 08/06/19 04:38 Baso # (Auto) 0.0 X10^3/uL (0.0-0.1) 08/06/19 04:38 Absolute Nucleated RBC 0.0 /100WBC 08/06/19 04:38 Plt Morphology Comment Normal (NORMAL) 08/06/19 04:38 RBC Morphology Abnormal (NORMAL) A 08/06/19 04:38 Hypochromasia 1+ A 08/06/19 04:38 Microcytosis Slight A 08/05/19 04:58 PT 14.8 SECONDS (11.8-14.3) 08/03/19 04:12 INR Target Range - 08/03/19 04:12 INR 1.20 (0.8-1.3) 08/03/19 04:12 Sample Site Rb 07/31/19 21:00 ABG pH 7.400 (7.35-7.45) 07/31/19 21:00 ABG pCO2 33.0 mmHg (35.0-45.0) L 07/31/19 21:00 ABG pO2 93.0 mmHg (80.0-100.0) 07/31/19 21:00 ABG HCO3 20.4 mmol/L (22-26) L 07/31/19 21:00 ABG O2 Saturation 97.0 % (90-100) 07/31/19 21:00 ABG Base Excess -3.6 mmol/L (-2.0-2.0) L 07/31/19 21:00 Lam Test N/a 07/31/19 21:00 A-a Gradient 15.0 mmHg 07/31/19 21:00 FiO2 21.0 07/31/19 21:00 Blood Gas Comments Irma well ae 07/31/19 21:00 Sodium 134 mmol/L (136-145) L 08/06/19 04:38 Corrected Sodium 136 mmol/L (136-145) 08/06/19 04:38 Potassium 4.1 mmol/L (3.5-5.1) 08/06/19 04:38 Chloride 99 mmol/L (98-107) 08/06/19 04:38 Carbon Dioxide 27.7 mmol/L (21-32) 08/06/19 04:38 BUN 3 mg/dL (7-18) L 08/06/19 04:38 Creatinine 0.53 mg/dL (0.55-1.02) L 08/06/19 04:38 Est GFR (MDRD) Af Amer > 60 (>60) 08/06/19 04:38 Est GFR (MDRD) Non-Af > 60 (>60) 08/06/19 04:38 Glucose 170 mg/dL (65-99) H 08/06/19 04:38 POC Glucose (mg/dL) 174 mg/dL (65-99) H 08/06/19 05:34 Lactic Acid 0.7 mmol/L (0.4-2.0) 08/02/19 04:29 Calcium 8.8 mg/dL (8.5-10.1) 08/06/19 04:38 Corrected Calcium 10.5 mg/dL (8.5-10.1) H 08/06/19 04:38 Magnesium 1.6 mg/dL (1.7-2.9) L 08/05/19 04:58 Total Bilirubin 0.10 mg/dL (0.2-1.0) L 08/06/19 04:38 AST 16 Units/L (15-37) 08/06/19 04:38 ALT 20 Units/L (12-78) 08/06/19 04:38 Alkaline Phosphatase 72 Units/L (46-116) 08/06/19 04:38 Creatine Kinase 28 Units/L (26-192) 07/31/19 18:08 CK-MB (CK-2) < 1.0 ng/mL (0-4.0) 07/31/19 18:08 CK/CKMB % Calc 3.6 % (<4) 07/31/19 18:08 Troponin I < 0.02 ng/mL (0-1.5) 07/31/19 18:08 Total Protein 7.1 g/dL (6.4-8.2) 08/06/19 04:38 Albumin 1.9 g/dL (3.4-5.0) L 08/06/19 04:38 Globulin 5.2 g/dL (2.5-4.5) H 08/06/19 04:38 Albumin/Globulin Ratio 0.4 Ratio (1.1-2.1) L 08/06/19 04:38 Amylase 9 Units/L (25-115) L 07/31/19 18:08 Lipase 30 Units/L (73-393) L 07/31/19 18:08 Specimen Type Clean catch urine 07/31/19 17:35 Urine Color Pale yellow (YELLOW) 07/31/19 17:35 Urine Appearance Clear (CLEAR) 07/31/19 17:35 Urine pH 6.0 (5.0 - 8.0) 07/31/19 17:35 Ur Specific [place] 1.010 (1.000-1.030) 07/31/19 17:35 Urine Protein 2+ (NEGATIVE) 07/31/19 17:35 Urine Glucose (UA) 4+ (NEGATIVE) 07/31/19 17:35 Urine Ketones 3+ (NEGATIVE) 07/31/19 17:35 Urine Occult Blood 2+ (NEGATIVE) 07/31/19 17:35 Urine Nitrite Negative (NEGATIVE) 07/31/19 17:35 Urine Bilirubin Negative (NEGATIVE) 07/31/19 17:35 Urine Urobilinogen Normal (NORMAL) 07/31/19 17:35 Ur Leukocyte Esterase Negative (NEGATIVE) 07/31/19 17:35 Urine RBC 0-2 /HPF (0-3) 07/31/19 17:35 Urine WBC None seen /HPF (0-5) 07/31/19 17:35 Ur Squamous Epith Cells Negative /HPF (NEGATIVE) 07/31/19 17:35 Urine Bacteria Negative /HPF (NEGATIVE) 07/31/19 17:35 Ur Culture Indicated? No/not indicated 07/31/19 17:35 Tobramycin Peak 2.4 ug/mL (4-8) L 08/03/19 17:40 Tobramycin Trough 0.2 ug/mL (0-2) 08/03/19 15:08 Vancomycin Trough 5.1 ug/mL (15-20) L 08/05/19 13:35 Urine Opiates Screen Negative (NEG=<300) 07/31/19 17:35 Urine Methadone Screen Negative (NEG=<300) 07/31/19 17:35 Ur Barbiturates Screen Negative (NEG=<200) 07/31/19 17:35 Ur Phencyclidine Scrn Negative (NEG=<25) 07/31/19 17:35 Ur Amphetamines Screen Negative (NEG=<1000) 07/31/19 17:35 U Benzodiazepines Scrn Negative (NEG=<200) 07/31/19 17:35 Urine Cocaine Screen Negative (NEG=<300) 07/31/19 17:35 U Marijuana (THC) Screen Negative (NEG=<50) 07/31/19 17:35 Acetone, Semi-Quant Cancelled 08/01/19 00:13 Influenza Type A (PCR) Negative (NEGATIVE) 07/31/19 18:09 Influenza Type B (PCR) Negative (NEGATIVE) 07/31/19 18:09 Cytology Specimen To follow 08/03/19 14:00 Tissue Pathology Cancelled 08/03/19 14:00 - Assessment and Plan 1: Lt perinephric abscess ,( successful drainage ). DM . drug user . same IV ATB . abdominal CT with cotrast today. - Problem Patient Problems: Patient Problems Renal lesion (Acute) N28.9 Renal abscess (Acute) N15.1 Perinephric abscess (Acute) N15.1 Diabetes mellitus (Acute) E11.9 Metabolic acidosis due to diabetes mellitus (Acute) E11.69, E87.2 Hypokalemia (Acute) E87.6 Constipation (Acute) K59.00 Hyponatremia (Acute) E87.1
[2019-08-06] MEDS: ZOFRAN INJ 4 MG VIAL IVP PRN (13:20)
--- NOTE | 2019-08-06 14:23 | CT ---
HISTORY: Left renal abscess Study: CT abdomen and pelvis with contrast Comparison: July 31, 2019 Technique: Multiple axial images of the abdomen and pelvis were obtained from the lung bases to the pubic symphysis after the administration of IV contrast. AEC was utilized. Findings: There is basilar subsegmental atelectasis. Again noted is a left perinephric thick walled peripherally enhancing fluid collection with reactive adjacent and overlying bowel wall thickening with a pigtail catheter noted which has decreased in size measuring 5 x 4 x 3 cm on today's exam and measuring 7 x 7 x 7 cm on the prior. The pigtail catheter resides along the posterior superior margin of the fluid. The intraparenchymal component has also decreased in size. The gallbladder is unremarkable in its CT appearance. No significant mesenteric or retroperitoneal lymphadenopathy can be observed. There is no pneumoperitoneum. A small mesenteric fat containing umbilical hernia is noted. The urinary bladder is grossly unremarkable. The bony structures are grossly intact. IMPRESSION: Persistent but improved left perinephric and intraparenchymal abscess. Reported By:
[2019-08-06] MEDS: NORCO 5/325 MG TAB PO PRN (15:59)
[2019-08-06] MEDS: SNACK - Diabetic Appropriate PO SCH (20:35)
[2019-08-06] MEDS ORDERED: COLACE CAP 100 MG PO SCH (21:00)
[2019-08-06 21:05] LABS: CREATININE 0.74 mg/dL (0.55-1.02); VANCOMYCIN,TROUGH 7.6 ug/mL (15-20)
[2019-08-06] MEDS ORDERED: VANCOMYCIN HCL ONE (21:56)
[2019-08-06] MEDS: VANCOMYCIN HCL 250 MG, VANCOMYCIN HCL 1 G in NS 250 ML IV 250 ML IV SCH (22:12)
[2019-08-07] MEDS: NORCO 5/325 MG TAB PO PRN ×2 (00:05→08:12)
[2019-08-07] MEDS: NS 1/2 + KCL 20 MEQ/L 1,000 ML IV SCH ×2 (02:31→08:21)
[2019-08-07 05:26] LABS: ALANINE AMINOTRANSFERASE 16 Units/L (12-78); ALKALINE PHOSPHATASE 70 Units/L (46-116); ASPARTATE AMINO TRANSFERASE 15 Units/L (15-37); BLOOD UREA NITROGEN 4 mg/dL (7-18); CALCIUM 8.9 mg/dL (8.5-10.1); CHLORIDE 98 mmol/L (98-107); COR CA(FOR HYPOALB) 10.5 mg/dL (8.5-10.1); COR NA(FOR HYPERGLY) 138 mmol/L (136-145); CREATININE 0.57 mg/dL (0.55-1.02); SODIUM 135 mmol/L (136-145); TOTAL PROTEIN 7.1 g/dL (6.4-8.2); eGFR NON BLACK RACES > 60 (>60)
[2019-08-07] MEDS ORDERED: VANCOMYCIN HCL ONE (05:32)
[2019-08-07] MEDS: VANCOMYCIN HCL 250 MG, VANCOMYCIN HCL 1 G in NS 250 ML IV 250 ML IV SCH (05:47)
[2019-08-07 05:56] LABS: BASOPHILS % (AUTO) 0.2 % (0.2-1.0); EOSINOPHILS # (AUTO) 0.1 x10^3/uL (0.0-0.2); EOSINOPHILS % (AUTO) 0.6 % (0.9-2.9); HEMATOCRIT 28.7 % (36.0-47.0); LYMPHOCYTES # (AUTO) 1.7 X10^3/uL (1.3-2.9); LYMPHOCYTES % (AUTO) 15.3 % (21.0-51.0); MEAN CORPUSCULAR HEMOGLOBIN 22.1 pg (27.0-34.0); MEAN CORPUSCULAR HGB CONC 31.3 g/dL (33.0-35.0); MEAN CORPUSCULAR VOLUME 70.6 fL (80.0-100.0); MONOCYTES # (AUTO) 0.9 x10^3/uL (0.3-0.8); MONOCYTES % (AUTO) 8.6 % (0.0-13.0); NEUTROPHILS # (AUTO) 8.1 x10^3/uL (2.2-4.8); NEUTROPHILS % (AUTO) 75.3 % (42.0-75.0); PLATELET COUNT 492 X10^3/uL (150.0-450.0); RED BLOOD COUNT 4.06 X10^6/uL (3.5-5.4); RED CELL DISTRIBUTION WIDTH 17.1 % (11.6-16.5); WHITE BLOOD COUNT 10.8 X10^3/uL (3.6-10.0)
[2019-08-07] MEDS: HumuLIN R SUBCUT PRN ×2 (05:57→12:16)
[2019-08-07 06:08] LABS: BAND NEUTROPHILS % 2 % (0-10)
[2019-08-07 06:09] LABS: HYPOCHROMASIA 1+; MICROCYTOSIS SLIGHT; PLATELET MORPHOLOGY COMMENT NORMAL (NORMAL)
[2019-08-07] MEDS: GLUCOPHAGE XR PO SCH (09:45)
[2019-08-07] MEDS: PEPCID TAB 20 MG PO SCH (09:46)
[2019-08-07] MEDS: ACTOS PO SCH (09:46)
[2019-08-07 12:47] VITALS: BP 120/76
[2019-08-07] MEDS ORDERED: PHARMACY COMMENT IV SCH (21:45)
== END 2019-08-07 14:30 | disposition home or self-care (01) | DRG 690 ==
LOC: ER 16:43 → ICU 23:34
PROVIDERS: ADMIT Internal Medicine; ATTEND Obstetrics & Gynecology Obstetrics
DX: R94.31 Abnormal electrocardiogram [ECG] [EKG]; K21.9 Gastro-esophageal reflux disease without esophagitis; E87.6 Hypokalemia; E87.2 Acidosis; Z23 Encounter for immunization; I87.2 Venous insufficiency (chronic) (peripheral); K59.09 Other constipation; Z87.440 Personal history of urinary (tract) infections; E87.1 Hypo-osmolality and hyponatremia; M54.5 Low back pain; N15.1 Renal and perinephric abscess; E11.65 Type 2 diabetes mellitus with hyperglycemia
CPT/HCPCS: 36415; 36600; 74022; 74176; 74177; 77012; 80048; 80053; 80200; 80202; 80307; 81001; 82009; 82150; 82550; 82553; 82565; 82803; 83605; 83690; 83735; 84132; 84484; 85025; 85610; 87040; 87070; 87077; 87086; 87186; 87205; 87502; 90674; 90686; 93005; 96365; 96367; 96374; 96375; 99284; A4222; J7030; G0434; J0696; J1170; J1756; J1815; J2250; J2405; J2704; J3260; J3370; J3475; J3480; J3490; J7040; J7050; J8499; S0195

== ENCOUNTER 2022-07-20 02:35 | Inpatient (IN) ==
[2022-07-20] MEDS ORDERED: TORADOL 30 MG VIAL IVP ONE ×2 (03:22→09:20)
--- NOTE | 2022-07-20 03:22 | ED.ABDFE ---
HPI <Allyson Azul - Last Filed: 07/25/22 05:45> Time Seen Time Seen by Provider: 07/20/22 03:21 PCP Primary Care Physician: Kamini HPI Comment HPI Comment: Lt flank and back pain radiating around to belly button x 1-2 days; getting worse; no n/v/d/f/c; no dysuria or hematuria or rash; overdue for period by a few days but says it's time to replace nexplanon. Complaint Chief Complaint:: Ambulatory in triage complaining of cramping pain in lower back radiating to upper left back and behind "belly button" onset 2 days ago COVID-19 Coronavirus risk:travel/contact w/high risk person: No Has patient experienced Coronavirus symptoms: No Source History Provided: Patient Mode of arrival Mode of Arrival: Ambulatory Timing Onset of Chief Complaint: 07/18/22 PMH <Allyson Azul - Last Filed: 07/25/22 05:45> PMH Past Medical History: Yes Past Medical History: Diabetes Past Surgical History: Yes Surgical History: Tonsillectomy Family History History of Family Medical Conditions: Yes Family Medical History: Diabetes Mellitus, Cancer, Coronary Artery Disease and Hypertension Social History Does patient currently use any type of tobacco product: Yes Have you used tobacco products in the last 12 months: Yes Type of Tobacco Use: Cigarettes Does any household member use tobacco: Yes Alcohol Use: None Do you use any recreational Drugs:: Yes (lonniecharley) Lives With: Spouse Lives Where: Home Travel Risk Coronavirus risk:travel/contact w/high risk person: No Has patient experienced Coronavirus symptoms: No Infectious screening In the last 2 months have you had wt loss of >10#?: NO Have you had fever, night sweats or hemotysis?: No Have you traveled outside the country in the last 6 months?: No Isolation: Standard ROS <Allyson Azul - Last Filed: 07/25/22 05:45> Review of Systems Constitutional: No Symptoms Reported Eyes: No Symptoms Reported ENTM: No Symptoms Reported Respiratoy: No Symptoms Reported Cardiovascular: No Symptoms Reported Genitourinary: No Symptoms Reported Neurological: No Symptoms Reported Musculoskeletal: No Symptoms Reported Integumentary: No Symptoms Reported Hematologic/Lymphatic: No Symptoms Reported Endocrine: No Symptoms Reported Psychiatric: No Symptoms Reported PE <Allyson Azul - Last Filed: 07/25/22 05:45> Vital Signs Vitals: Temperature 99.1 F Pulse Rate 128 Respiratory Rate 20 Blood Pressure [Left Arm] 120/78 Blood Pressure [Right Arm] 122/75 Blood Pressure 123/79 O2 Sat by Pulse Oximetry 97 General Limitations: No Limitations and Language Barrier General Appearance: Alert and In No Apparent Distress Head Head Exam: Normal Inspection Eyes Eye exam: Normal Appearance ENT ENT Exam: Normal Exam Neck Neck Exam: Normal Inspection Chest Chest Inspection: Normal Inspection Respiratory Respiratory Exam: Normal Lung Sounds Bilat Cardiovascular Cardiovascular Exam: Regular Rate and Normal Rhythm Abdominal Exam Abdominal Exam: Normal Inspection and Normal Bowel Sounds Abdominal Tenderness: Diffuse and Mild Rectal Rectal Exam: Deferred Back Back Exam: Normal Inspection Extremeties Extremities Exam: Normal Inspection Neurologic Neurological Exam: Alert and Oriented X3 Psychiatric Psychiatric Exam: Normal Affect and Normal Mood Skin Skin Exam: Warm, Dry and Intact <Arthur Villalobos - Last Filed: 07/20/22 09:59> Vital Signs Vitals: Temperature 99.1 F Pulse Rate 128 Respiratory Rate 20 Blood Pressure [Left Arm] 120/78 Blood Pressure [Right Arm] 122/75 Blood Pressure 123/79 O2 Sat by Pulse Oximetry 97 COURSE <Allyson Azul - Last Filed: 07/25/22 05:45> Treatment Treatment: 26 y/o with lt flank pain radiating to belly button x 2 days with wbc 17.6 and hematuria; sent to [facility] [place] for ct abd/pelvis w/o because of poor iv access; care to Dr Villalobos at 0800. ROR <Allyson Azul - Last Filed: 07/25/22 05:45> Labs Reviewed Laboratory Results Reviewed?: Yes Result Diagrams: 07/22/22 05:20 07/22/22 05:20 Laboratory: WBC 17.6 X10^3/uL (3.6-10.0) H 07/20/22 03:54 RBC 4.39 X10^6/uL (3.5-5.4) 07/20/22 03:54 Hgb 8.9 g/dL (12.0-16.0) L 07/20/22 03:54 Hct 28.4 % (36.0-47.0) L 07/20/22 03:54 MCV 64.7 fL (80.0-100.0) L 07/20/22 03:54 MCH 20.3 pg (27.0-34.0) L 07/20/22 03:54 MCHC 31.5 g/dL (33.0-35.0) L 07/20/22 03:54 RDW 19.7 % (11.6-16.5) H 07/20/22 03:54 Plt Count 488 X10^3/uL (150.0-450.0) H 07/20/22 03:54 Plt Count Comment Increased (ADEQUATE) A 07/20/22 03:54 MPV 7.9 fL (7.4-11.0) 07/20/22 03:54 Neut % (Auto) 80.0 % (42.0-75.0) H 07/20/22 03:54 Lymph % (Auto) 12.0 % (21.0-51.0) L 07/20/22 03:54 [place] % (Auto) 7.6 % (0.0-13.0) 07/20/22 03:54 Eos % (Auto) 0.1 % (0.9-2.9) L 07/20/22 03:54 Baso % (Auto) 0.3 % (0.2-1.0) 07/20/22 03:54 Neut # (Auto) 14.0 x10^3/uL (2.2-4.8) H 07/20/22 03:54 Lymph # (Auto) 2.1 X10^3/uL (1.3-2.9) 07/20/22 03:54 [place] # (Auto) 1.3 x10^3/uL (0.3-0.8) H 07/20/22 03:54 Eos # (Auto) 0.0 x10^3/uL (0.0-0.2) 07/20/22 03:54 Baso # (Auto) 0.0 X10^3/uL (0.0-0.1) 07/20/22 03:54 Absolute Nucleated RBC 0.0 /100WBC 07/20/22 03:54 Plt Morphology Comment Normal (NORMAL) 07/20/22 03:54 RBC Morphology Abnormal (NORMAL) A 07/20/22 03:54 Hypochromasia 2+ A 07/20/22 03:54 Microcytosis 2+ A 07/20/22 03:54 Sodium 130 mmol/L (136-145) L 07/20/22 03:54 Corrected Sodium 133 mmol/L (136-145) L 07/20/22 03:54 Potassium 3.4 mmol/L (3.5-5.1) L 07/20/22 03:54 Chloride 91 mmol/L (98-107) L 07/20/22 03:54 Carbon Dioxide 33.0 mmol/L (21-32) H 07/20/22 03:54 BUN 6 mg/dL (7-18) L 07/20/22 03:54 Creatinine 0.71 mg/dL (0.55-1.02) 07/20/22 03:54 Est GFR (MDRD) Af Amer > 60 (>60) 07/20/22 03:54 Est GFR (MDRD) Non-Af > 60 (>60) 07/20/22 03:54 Glucose 241 mg/dL (65-99) H 07/20/22 03:54 Calcium 8.7 mg/dL (8.5-10.1) 07/20/22 03:54 Corrected Calcium 9.6 mg/dL (8.5-10.1) 07/20/22 03:54 Total Bilirubin 0.30 mg/dL (0.2-1.0) 07/20/22 03:54 AST 11 Units/L (15-37) L 07/20/22 03:54 ALT 13 Units/L (12-78) 07/20/22 03:54 Alkaline Phosphatase 124 Units/L (46-116) H 07/20/22 03:54 Total Protein 8.4 g/dL (6.4-8.2) H 07/20/22 03:54 Albumin 2.9 g/dL (3.4-5.0) L 07/20/22 03:54 Globulin 5.5 g/dL (2.5-4.5) H 07/20/22 03:54 Albumin/Globulin Ratio 0.5 Ratio (1.1-2.1) L 07/20/22 03:54 Specimen Type Clean catch urine 07/20/22 05:26 Urine Color Dark yellow (YELLOW) 07/20/22 05:26 Urine Appearance Slightly hazy (CLEAR) 07/20/22 05:26 Urine pH 6.0 (5.0 - 8.0) 07/20/22 05:26 Ur Specific [place] 1.025 (1.000-1.030) 07/20/22 05:26 Urine Protein 3+ (NEGATIVE) 07/20/22 05:26 Urine Glucose (UA) 4+ (NEGATIVE) 07/20/22 05:26 Urine Ketones 1+ (NEGATIVE) 07/20/22 05:26 Urine Blood 1+ (NEGATIVE) 07/20/22 05:26 Urine Nitrite Negative (NEGATIVE) 07/20/22 05:26 Urine Bilirubin 1+ (NEGATIVE) 07/20/22 05:26 Urine Urobilinogen 1+ (NORMAL) 07/20/22 05:26 Ur Leukocyte Esterase 2+ (NEGATIVE) 07/20/22 05:26 Urine RBC 0-2 /HPF (0-3) 07/20/22 05:26 Urine WBC 3-5 /HPF (0-5) 07/20/22 05:26 Ur Squamous Epith Cells Moderate /HPF (NEGATIVE) 07/20/22 05:26 Amorphous Sediment 2+ /HPF (NEGATIVE) 07/20/22 05:26 Urine Bacteria Trace /HPF (NEGATIVE) 07/20/22 05:26 Urine Mucus Many /HPF (NEGATIVE) 07/20/22 05:26 Ur Culture Indicated? No/not indicated 07/20/22 05:26 Urine Opiates Screen Negative (NEG=<300) 07/20/22 05:26 Urine Methadone Screen Negative (NEG=<300) 07/20/22 05:26 Ur Barbiturates Screen Negative (NEG=<200) 07/20/22 05:26 Ur Phencyclidine Scrn Negative (NEG=<25) 07/20/22 05:26 Ur Amphetamines Screen Negative (NEG=<1000) 07/20/22 05:26 U Benzodiazepines Scrn Negative (NEG=<200) 07/20/22 05:26 Urine Cocaine Screen Negative (NEG=<300) 07/20/22 05:26 U Marijuana (THC) Screen Negative (NEG=<50) 07/20/22 05:26 SARS-CoV-2 (PCR) Negative (NEGATIVE) 07/20/22 09:35 Influenza Type A (PCR) Negative (NEGATIVE) 07/20/22 09:35 Influenza Type B (PCR) Negative (NEGATIVE) 07/20/22 09:35 RSV (PCR) Negative (NEGATIVE) 07/20/22 09:35 <Arthur Quinonezis - Last Filed: 07/20/22 09:59> Labs Reviewed Laboratory: WBC 17.6 X10^3/uL (3.6-10.0) H 07/20/22 03:54 RBC 4.39 X10^6/uL (3.5-5.4) 07/20/22 03:54 Hgb 8.9 g/dL (12.0-16.0) L 07/20/22 03:54 Hct 28.4 % (36.0-47.0) L 07/20/22 03:54 MCV 64.7 fL (80.0-100.0) L 07/20/22 03:54 MCH 20.3 pg (27.0-34.0) L 07/20/22 03:54 MCHC 31.5 g/dL (33.0-35.0) L 07/20/22 03:54 RDW 19.7 % (11.6-16.5) H 07/20/22 03:54 Plt Count 488 X10^3/uL (150.0-450.0) H 07/20/22 03:54 Plt Count Comment Increased (ADEQUATE) A 07/20/22 03:54 MPV 7.9 fL (7.4-11.0) 07/20/22 03:54 Neut % (Auto) 80.0 % (42.0-75.0) H 07/20/22 03:54 Lymph % (Auto) 12.0 % (21.0-51.0) L 07/20/22 03:54 [place] % (Auto) 7.6 % (0.0-13.0) 07/20/22 03:54 Eos % (Auto) 0.1 % (0.9-2.9) L 07/20/22 03:54 Baso % (Auto) 0.3 % (0.2-1.0) 07/20/22 03:54 Neut # (Auto) 14.0 x10^3/uL (2.2-4.8) H 07/20/22 03:54 Lymph # (Auto) 2.1 X10^3/uL (1.3-2.9) 07/20/22 03:54 [place] # (Auto) 1.3 x10^3/uL (0.3-0.8) H 07/20/22 03:54 Eos # (Auto) 0.0 x10^3/uL (0.0-0.2) 07/20/22 03:54 Baso # (Auto) 0.0 X10^3/uL (0.0-0.1) 07/20/22 03:54 Absolute Nucleated RBC 0.0 /100WBC 07/20/22 03:54 Plt Morphology Comment Normal (NORMAL) 07/20/22 03:54 RBC Morphology Abnormal (NORMAL) A 07/20/22 03:54 Hypochromasia 2+ A 07/20/22 03:54 Microcytosis 2+ A 07/20/22 03:54 Sodium 130 mmol/L (136-145) L 07/20/22 03:54 Corrected Sodium 133 mmol/L (136-145) L 07/20/22 03:54 Potassium 3.4 mmol/L (3.5-5.1) L 07/20/22 03:54 Chloride 91 mmol/L (98-107) L 07/20/22 03:54 Carbon Dioxide 33.0 mmol/L (21-32) H 07/20/22 03:54 BUN 6 mg/dL (7-18) L 07/20/22 03:54 Creatinine 0.71 mg/dL (0.55-1.02) 07/20/22 03:54 Est GFR (MDRD) Af Amer > 60 (>60) 07/20/22 03:54 Est GFR (MDRD) Non-Af > 60 (>60) 07/20/22 03:54 Glucose 241 mg/dL (65-99) H 07/20/22 03:54 Calcium 8.7 mg/dL (8.5-10.1) 07/20/22 03:54 Corrected Calcium 9.6 mg/dL (8.5-10.1) 07/20/22 03:54 Total Bilirubin 0.30 mg/dL (0.2-1.0) 07/20/22 03:54 AST 11 Units/L (15-37) L 07/20/22 03:54 ALT 13 Units/L (12-78) 07/20/22 03:54 Alkaline Phosphatase 124 Units/L (46-116) H 07/20/22 03:54 Total Protein 8.4 g/dL (6.4-8.2) H 07/20/22 03:54 Albumin 2.9 g/dL (3.4-5.0) L 07/20/22 03:54 Globulin 5.5 g/dL (2.5-4.5) H 07/20/22 03:54 Albumin/Globulin Ratio 0.5 Ratio (1.1-2.1) L 07/20/22 03:54 Specimen Type Clean catch urine 07/20/22 05:26 Urine Color Dark yellow (YELLOW) 07/20/22 05:26 Urine Appearance Slightly hazy (CLEAR) 07/20/22 05:26 Urine pH 6.0 (5.0 - 8.0) 07/20/22 05:26 Ur Specific [place] 1.025 (1.000-1.030) 07/20/22 05:26 Urine Protein 3+ (NEGATIVE) 07/20/22 05:26 Urine Glucose (UA) 4+ (NEGATIVE) 07/20/22 05:26 Urine Ketones 1+ (NEGATIVE) 07/20/22 05:26 Urine Blood 1+ (NEGATIVE) 07/20/22 05:26 Urine Nitrite Negative (NEGATIVE) 07/20/22 05:26 Urine Bilirubin 1+ (NEGATIVE) 07/20/22 05:26 Urine Urobilinogen 1+ (NORMAL) 07/20/22 05:26 Ur Leukocyte Esterase 2+ (NEGATIVE) 07/20/22 05:26 Urine RBC 0-2 /HPF (0-3) 07/20/22 05:26 Urine WBC 3-5 /HPF (0-5) 07/20/22 05:26 Ur Squamous Epith Cells Moderate /HPF (NEGATIVE) 07/20/22 05:26 Amorphous Sediment 2+ /HPF (NEGATIVE) 07/20/22 05:26 Urine Bacteria Trace /HPF (NEGATIVE) 07/20/22 05:26 Urine Mucus Many /HPF (NEGATIVE) 07/20/22 05:26 Ur Culture Indicated? No/not indicated 07/20/22 05:26 Urine Opiates Screen Negative (NEG=<300) 07/20/22 05:26 Urine Methadone Screen Negative (NEG=<300) 07/20/22 05:26 Ur Barbiturates Screen Negative (NEG=<200) 07/20/22 05:26 Ur Phencyclidine Scrn Negative (NEG=<25) 07/20/22 05:26 Ur Amphetamines Screen Negative (NEG=<1000) 07/20/22 05:26 U Benzodiazepines Scrn Negative (NEG=<200) 07/20/22 05:26 Urine Cocaine Screen Negative (NEG=<300) 07/20/22 05:26 U Marijuana (THC) Screen Negative (NEG=<50) 07/20/22 05:26 SARS-CoV-2 (PCR) Negative (NEGATIVE) 07/20/22 09:35 Influenza Type A (PCR) Negative (NEGATIVE) 07/20/22 09:35 Influenza Type B (PCR) Negative (NEGATIVE) 07/20/22 09:35 RSV (PCR) Negative (NEGATIVE) 07/20/22 09:35 Opioid <Allyson Azul - Last Filed: 07/25/22 05:45> Opioid Risk Tool Age (Dre box if 16-45): Yes History of Preadolescent Sexual Abuse: No Total: 1 Total Score Risk Category: Low Risk Copyright: Yinka BRENNAN predicting aberrant behaviors <Arthur Villalobos - Last Filed: 07/20/22 09:59> Opioid Risk Tool Total: 1 Total Score Risk Category: Low Risk Discharge Plan Diagnosis Discharge Problem: Hematuria, Left flank pain, Pyelonephritis Discharge Plan Patient Disposition: ADMITTED INPATIENT Condition: Stable
[2022-07-20] MEDS ORDERED: TORADOL 30 MG VIAL ONE (03:37)
[2022-07-20] MEDS ORDERED: TORADOL 60 MG VIAL ONE (03:46)
[2022-07-20] MEDS ORDERED: TORADOL 60 MG VIAL IM ONE (03:47)
[2022-07-20 04:02] LABS: BASOPHILS % (AUTO) 0.3 % (0.2-1.0); EOSINOPHILS % (AUTO) 0.1 % (0.9-2.9); HEMATOCRIT 28.4 % (36.0-47.0); HEMOGLOBIN 8.9 g/dL (12.0-16.0); LYMPHOCYTES # (AUTO) 2.1 X10^3/uL (1.3-2.9); MEAN CORPUSCULAR HEMOGLOBIN 20.3 pg (27.0-34.0); MEAN CORPUSCULAR HGB CONC 31.5 g/dL (33.0-35.0); MEAN CORPUSCULAR VOLUME 64.7 fL (80.0-100.0); MEAN PLATELET VOLUME 7.9 fL (7.4-11.0); MONOCYTES # (AUTO) 1.3 x10^3/uL (0.3-0.8); MONOCYTES % (AUTO) 7.6 % (0.0-13.0); RED BLOOD COUNT 4.39 X10^6/uL (3.5-5.4); RED CELL DISTRIBUTION WIDTH 19.7 % (11.6-16.5); WHITE BLOOD COUNT 17.6 X10^3/uL (3.6-10.0)
[2022-07-20 04:23] LABS: ALANINE AMINOTRANSFERASE 13 Units/L (12-78); ALBUMIN 2.9 g/dL (3.4-5.0); ALKALINE PHOSPHATASE 124 Units/L (46-116); ASPARTATE AMINO TRANSFERASE 11 Units/L (15-37); BLOOD UREA NITROGEN 6 mg/dL (7-18); CALCIUM 8.7 mg/dL (8.5-10.1); CHLORIDE 91 mmol/L (98-107); COR CA(FOR HYPOALB) 9.6 mg/dL (8.5-10.1); COR NA(FOR HYPERGLY) 133 mmol/L (136-145); CREATININE 0.71 mg/dL (0.55-1.02); SODIUM 130 mmol/L (136-145); TOTAL PROTEIN 8.4 g/dL (6.4-8.2); eGFR NON BLACK RACES > 60 (>60)
[2022-07-20 04:28] LABS: HYPOCHROMASIA 2+; MICROCYTOSIS 2+; PLATELET MORPHOLOGY COMMENT NORMAL (NORMAL)
[2022-07-20 05:36] LABS: BILIRUBIN,URINE 1+ (NEGATIVE); BLOOD/HEMOGLOBIN,URINE 1+ (NEGATIVE); GLUCOSE, URINE 4+ (NEGATIVE); KETONES,URINE 1+ (NEGATIVE); LEUKOCYTE ESTERASE ,URINE 2+ (NEGATIVE); NITRITES,URINE NEGATIVE (NEGATIVE); PROTEIN,URINE 3+ (NEGATIVE); UROBILINOGEN,URINE 1+ (NORMAL)
[2022-07-20 06:01] LABS: APPEARANCE,URINE SLIGHTLY HAZY (CLEAR); COLOR,URINE DARK YELLOW (YELLOW)
[2022-07-20 06:02] LABS: BACTERIA,URINE TRACE /HPF (NEGATIVE); RBC,URINE 0-2 /HPF (0-3); SQUAMOUS EPITHELIAL CELL,UR MODERATE /HPF (NEGATIVE)
[2022-07-20] MEDS ORDERED: ROCEPHIN VIAL 1 GRAM IV ONE (09:20)
--- NOTE | 2022-07-20 09:20 | ED.ABDFE ---
HPI Time Seen Time Seen by Provider: 07/20/22 03:21 PCP Primary Care Physician: Kamini Daugherty Doctors Chief Complaint Comments: THIS PATIENT WAS SIGNED OUT TO ME BY DR SCHWARTZ. SHE PRESENTED WITH 2 DAY HISTORY OF LEFT UPPER BACK PAIN FOR 2 DAYS. HAD LABBS DONE HERE AND WAS SENT TO [facility] FOR CT SCAN OF ABD/PELVIS. Chief Complaint:: Ambulatory in triage complaining of cramping pain in lower back radiating to upper left back and behind "belly button" onset 2 days ago COVID-19 Coronavirus risk:travel/contact w/high risk person: No Has patient experienced Coronavirus symptoms: No Source History Provided: Patient Mode of arrival Mode of Arrival: Ambulatory Timing Onset of Chief Complaint: 07/18/22 PMH PMH Past Medical History: Yes Past Medical History: Diabetes Past Surgical History: Yes Surgical History: Tonsillectomy Family History History of Family Medical Conditions: Yes Family Medical History: Diabetes Mellitus, Cancer, Coronary Artery Disease and Hypertension Social History Does patient currently use any type of tobacco product: Yes Have you used tobacco products in the last 12 months: Yes Type of Tobacco Use: Cigarettes Does any household member use tobacco: Yes Alcohol Use: None Do you use any recreational Drugs:: Yes (ethan) Lives With: Spouse Lives Where: Home Travel Risk Coronavirus risk:travel/contact w/high risk person: No Has patient experienced Coronavirus symptoms: No Infectious screening In the last 2 months have you had wt loss of >10#?: NO Have you had fever, night sweats or hemotysis?: No Have you traveled outside the country in the last 6 months?: No Isolation: Standard ROS Review of Systems Constitutional: Other (LEFT UPPER BACK PAIN WITH ABDOMINAL PAIN) Eyes: No Symptoms Reported ENTM: No Symptoms Reported Respiratoy: No Symptoms Reported Cardiovascular: No Symptoms Reported Gastrointestinal/Abdominal: Abdominal Pain Genitourinary: Frequency Neurological: No Symptoms Reported Musculoskeletal: Back Pain Integumentary: No Symptoms Reported Hematologic/Lymphatic: No Symptoms Reported Endocrine: No Symptoms Reported Psychiatric: No Symptoms Reported PE Vital Signs Vitals: Temperature 99.1 F Pulse Rate 128 Respiratory Rate 20 Blood Pressure [Left Arm] 120/78 Blood Pressure [Right Arm] 122/75 Blood Pressure 123/79 O2 Sat by Pulse Oximetry 97 General Limitations: Other (LEFT UPPER BACK PAIN UPON MOVEMENT) General Appearance: In Distress (MODERATE DISTRESS) Head Head Exam: Normal Inspection and Atraumatic Eyes Eye exam: Normal Appearance, PERRL and EOMI ENT ENT Exam: Normal Exam and Other (SEVERE DENTAL CARRIES) Neck Neck Exam: Normal Inspection and Full ROM Chest Chest Inspection: Normal Inspection and Symmetric Chest Wall Rise Respiratory Respiratory Exam: Normal Lung Sounds Bilat Respiratory Exam: Bilateral: Clear to Auscultation Abdominal Exam Abdominal Exam: Normal Inspection, Normal Bowel Sounds, Soft and Tenderness (TENDER UPON PALPATION GLOBALLY) Abdominal Tenderness: Diffuse Rectal Rectal Exam: Deferred Back Back Exam: Tenderness and (L) CVA Tenderness Extremeties Extremities Exam: Normal Inspection External Exam: Female: Deferred : Speculum Exam (Female): Deferred : Bimanual Exam (female): Deferred Neurologic Neurological Exam: Alert, Oriented X3 and CN II-XII Intact Psychiatric Psychiatric Exam: Anxious Skin Skin Exam: Warm and Intact MDM Differential Diagnosis Differential Diagnosis- Considerations may include:: Diverticular disease, Uri nary obstruction, Urinary tract infection and Urolithiasis COURSE Treatment Treatment: PATIENT REMAINED RELATIVELY STABLE DURING ER EVALUATION. WAS FOUND TO HAVE PYELONEPHRITIS BY CT SCAN AND WAS GIVEN FIRET DOSE OF ROCEPHINE 1GM IV IN ER. CONTACT WAS MADE WITH PCP,DR GIBBONS , AND HE STATED TO ADMIT PATIENT TO HOSPITAL WITH PYELONEPHRITIS. THE PATIENT WAS MADE AWARE OF THE INTENT AND WAS AGREABLE TO THE ADMISSION. [facility] Labs Reviewed Laboratory Results Reviewed?: Yes Result Diagrams: 07/20/22 03:54 07/20/22 21:30 Laboratory: WBC 17.6 X10^3/uL (3.6-10.0) H 07/20/22 03:54 RBC 4.39 X10^6/uL (3.5-5.4) 07/20/22 03:54 Hgb 8.9 g/dL (12.0-16.0) L 07/20/22 03:54 Hct 28.4 % (36.0-47.0) L 07/20/22 03:54 MCV 64.7 fL (80.0-100.0) L 07/20/22 03:54 MCH 20.3 pg (27.0-34.0) L 07/20/22 03:54 MCHC 31.5 g/dL (33.0-35.0) L 07/20/22 03:54 RDW 19.7 % (11.6-16.5) H 07/20/22 03:54 Plt Count 488 X10^3/uL (150.0-450.0) H 07/20/22 03:54 Plt Count Comment Increased (ADEQUATE) A 07/20/22 03:54 MPV 7.9 fL (7.4-11.0) 07/20/22 03:54 Neut % (Auto) 80.0 % (42.0-75.0) H 07/20/22 03:54 Lymph % (Auto) 12.0 % (21.0-51.0) L 07/20/22 03:54 [place] % (Auto) 7.6 % (0.0-13.0) 07/20/22 03:54 Eos % (Auto) 0.1 % (0.9-2.9) L 07/20/22 03:54 Baso % (Auto) 0.3 % (0.2-1.0) 07/20/22 03:54 Neut # (Auto) 14.0 x10^3/uL (2.2-4.8) H 07/20/22 03:54 Lymph # (Auto) 2.1 X10^3/uL (1.3-2.9) 07/20/22 03:54 [place] # (Auto) 1.3 x10^3/uL (0.3-0.8) H 07/20/22 03:54 Eos # (Auto) 0.0 x10^3/uL (0.0-0.2) 07/20/22 03:54 Baso # (Auto) 0.0 X10^3/uL (0.0-0.1) 07/20/22 03:54 Absolute Nucleated RBC 0.0 /100WBC 07/20/22 03:54 Plt Morphology Comment Normal (NORMAL) 07/20/22 03:54 RBC Morphology Abnormal (NORMAL) A 07/20/22 03:54 Hypochromasia 2+ A 07/20/22 03:54 Microcytosis 2+ A 07/20/22 03:54 Sodium 130 mmol/L (136-145) L 07/20/22 03:54 Corrected Sodium 133 mmol/L (136-145) L 07/20/22 03:54 Potassium 3.4 mmol/L (3.5-5.1) L 07/20/22 03:54 Chloride 91 mmol/L (98-107) L 07/20/22 03:54 Carbon Dioxide 33.0 mmol/L (21-32) H 07/20/22 03:54 BUN 6 mg/dL (7-18) L 07/20/22 03:54 Creatinine 0.71 mg/dL (0.55-1.02) 07/20/22 03:54 Est GFR (MDRD) Af Amer > 60 (>60) 07/20/22 03:54 Est GFR (MDRD) Non-Af > 60 (>60) 07/20/22 03:54 Glucose 241 mg/dL (65-99) H 07/20/22 03:54 Calcium 8.7 mg/dL (8.5-10.1) 07/20/22 03:54 Corrected Calcium 9.6 mg/dL (8.5-10.1) 07/20/22 03:54 Total Bilirubin 0.30 mg/dL (0.2-1.0) 07/20/22 03:54 AST 11 Units/L (15-37) L 07/20/22 03:54 ALT 13 Units/L (12-78) 07/20/22 03:54 Alkaline Phosphatase 124 Units/L (46-116) H 07/20/22 03:54 Total Protein 8.4 g/dL (6.4-8.2) H 07/20/22 03:54 Albumin 2.9 g/dL (3.4-5.0) L 07/20/22 03:54 Globulin 5.5 g/dL (2.5-4.5) H 07/20/22 03:54 Albumin/Globulin Ratio 0.5 Ratio (1.1-2.1) L 07/20/22 03:54 Specimen Type Clean catch urine 07/20/22 05:26 Urine Color Dark yellow (YELLOW) 07/20/22 05:26 Urine Appearance Slightly hazy (CLEAR) 07/20/22 05:26 Urine pH 6.0 (5.0 - 8.0) 07/20/22 05:26 Ur Specific [place] 1.025 (1.000-1.030) 07/20/22 05:26 Urine Protein 3+ (NEGATIVE) 07/20/22 05:26 Urine Glucose (UA) 4+ (NEGATIVE) 07/20/22 05:26 Urine Ketones 1+ (NEGATIVE) 07/20/22 05:26 Urine Blood 1+ (NEGATIVE) 07/20/22 05:26 Urine Nitrite Negative (NEGATIVE) 07/20/22 05:26 Urine Bilirubin 1+ (NEGATIVE) 07/20/22 05:26 Urine Urobilinogen 1+ (NORMAL) 07/20/22 05:26 Ur Leukocyte Esterase 2+ (NEGATIVE) 07/20/22 05:26 Urine RBC 0-2 /HPF (0-3) 07/20/22 05:26 Urine WBC 3-5 /HPF (0-5) 07/20/22 05:26 Ur Squamous Epith Cells Moderate /HPF (NEGATIVE) 07/20/22 05:26 Amorphous Sediment 2+ /HPF (NEGATIVE) 07/20/22 05:26 Urine Bacteria Trace /HPF (NEGATIVE) 07/20/22 05:26 Urine Mucus Many /HPF (NEGATIVE) 07/20/22 05:26 Ur Culture Indicated? No/not indicated 07/20/22 05:26 Urine Opiates Screen Negative (NEG=<300) 07/20/22 05:26 Urine Methadone Screen Negative (NEG=<300) 07/20/22 05:26 Ur Barbiturates Screen Negative (NEG=<200) 07/20/22 05:26 Ur Phencyclidine Scrn Negative (NEG=<25) 07/20/22 05:26 Ur Amphetamines Screen Negative (NEG=<1000) 07/20/22 05:26 U Benzodiazepines Scrn Negative (NEG=<200) 07/20/22 05:26 Urine Cocaine Screen Negative (NEG=<300) 07/20/22 05:26 U Marijuana (THC) Screen Negative (NEG=<50) 07/20/22 05:26 SARS-CoV-2 (PCR) Negative (NEGATIVE) 07/20/22 09:35 Influenza Type A (PCR) Negative (NEGATIVE) 07/20/22 09:35 Influenza Type B (PCR) Negative (NEGATIVE) 07/20/22 09:35 RSV (PCR) Negative (NEGATIVE) 07/20/22 09:35 XRAY XRAY Interpreted by: Radiologist (CT OF ABD/PELVIS :FINDING CONSISTENT WITH LEFT RENAL PYELONEPHRITIS. NO ABSCESS OS SEEN. NO STONES OR HYDRONEPHROSIS, mINISCULE PLEURAL EFFUSION.) Opioid Opioid Risk Tool Age (Dre box if 16-45): Yes History of Preadolescent Sexual Abuse: No Total: 1 Total Score Risk Category: Low Risk Copyright: Yinka BRENNAN predicting aberrant behaviors Discharge Plan Diagnosis Discharge Problem: Hematuria, Left flank pain, Pyelonephritis Discharge Plan Patient Disposition: 09 ADMITTED INPATIENT Condition: Stable
[2022-07-20] MEDS ORDERED: NS 100 ML IV 100 ML ONE (09:32)
[2022-07-20] MEDS ORDERED: ROCEPHIN VIAL 1 GRAM ONE (09:32)
[2022-07-20 11:02] VITALS: BMI 20.7
[2022-07-20] MEDS ORDERED: NovoLIN R (or HumuLIN R) SUBCUT PRN (13:08)
[2022-07-20] MEDS: TORADOL 30 MG VIAL IVP PRN ×2 (14:36→21:00)
[2022-07-20] MEDS ORDERED: NS 1,000 ML IV 1,000 ML IV ONE (16:12)
[2022-07-20] MEDS ORDERED: NovoLIN R (or HumuLIN R) SC PRN (16:16)
[2022-07-20] MEDS ORDERED: NS 1,000 ML IV 1,000 ML ONE (16:26)
[2022-07-20] MEDS ORDERED: ROCEPHIN 1 GRAM IV PREMIX 1 G/50 ML IV.SOLN. IV SCH (17:00)
[2022-07-20] MEDS: ROCEPHIN VIAL 1 GRAM 1 G in NS 50 ML IV 50 ML IV SCH (17:18)
[2022-07-20] MEDS: HumaLOG SC PRN ×2 (17:36→21:28)
[2022-07-20] MEDS: NS 1,000 ML IV 1,000 ML IV SCH (17:46)
[2022-07-20] MEDS ORDERED: K-RIDER 10 MEQ/NS 100 ML 10 MEQ/100 ML BAG IV PRN (20:24)
[2022-07-20] MEDS ORDERED: POTASSIUM CHL 60 MEQ/NS 0.45% 500 ML IV PRN (20:24)
[2022-07-20] MEDS ORDERED: K-DUR TAB 20 MEQ PO PRN (20:24)
[2022-07-20] MEDS ORDERED: POTASSIUM CHLORIDE LIQ 20 MEQ UDC PO PRN (20:24)
[2022-07-20] MEDS ORDERED: POTASSIUM CHL 40 MEQ/NS 0.45% 500 ML IV PRN (20:24)
[2022-07-20] MEDS ORDERED: KLOR-CON PO PRN (20:24)
[2022-07-20] MEDS ORDERED: MICRO K EXTEN CAP 10 MEQ PO PRN (20:24)
[2022-07-20] MEDS ORDERED: LANTUS SC SCH (21:00)
[2022-07-20] MEDS: SNACK - Diabetic Appropriate PO SCH (21:27)
[2022-07-20] MEDS: LANTUS SC SCH (21:27)
[2022-07-21] MEDS: NS 1,000 ML IV 1,000 ML IV SCH ×3 (02:08→21:23)
[2022-07-21] MEDS: ROCEPHIN VIAL 1 GRAM 1 G in NS 50 ML IV 50 ML IV SCH (06:08)
[2022-07-21] MEDS: HumaLOG SC PRN ×3 (06:08→16:41)
[2022-07-21 06:27] LABS: BASOPHILS % (AUTO) 0.3 % (0.2-1.0); EOSINOPHILS # (AUTO) 0.1 x10^3/uL (0.0-0.2); EOSINOPHILS % (AUTO) 0.3 % (0.9-2.9); HEMATOCRIT 24.6 % (36.0-47.0); HEMOGLOBIN 7.8 g/dL (12.0-16.0); LYMPHOCYTES # (AUTO) 1.4 X10^3/uL (1.3-2.9); LYMPHOCYTES % (AUTO) 9.4 % (21.0-51.0); MEAN CORPUSCULAR HEMOGLOBIN 20.4 pg (27.0-34.0); MEAN CORPUSCULAR HGB CONC 31.6 g/dL (33.0-35.0); MEAN CORPUSCULAR VOLUME 64.7 fL (80.0-100.0); MEAN PLATELET VOLUME 8.5 fL (7.4-11.0); MONOCYTES # (AUTO) 1.1 x10^3/uL (0.3-0.8); MONOCYTES % (AUTO) 7.6 % (0.0-13.0); NEUTROPHILS # (AUTO) 12.3 x10^3/uL (2.2-4.8); NEUTROPHILS % (AUTO) 82.4 % (42.0-75.0); RED BLOOD COUNT 3.81 X10^6/uL (3.5-5.4); RED CELL DISTRIBUTION WIDTH 19.5 % (11.6-16.5); WHITE BLOOD COUNT 14.9 X10^3/uL (3.6-10.0)
[2022-07-21 06:44] LABS: ALANINE AMINOTRANSFERASE 9 Units/L (12-78); ALBUMIN 1.8 g/dL (3.4-5.0); ALKALINE PHOSPHATASE 106 Units/L (46-116); ASPARTATE AMINO TRANSFERASE 16 Units/L (15-37); BLOOD UREA NITROGEN 9 mg/dL (7-18); CALCIUM 7.8 mg/dL (8.5-10.1); CARBON DIOXIDE 28.3 mmol/L (21-32); CHLORIDE 94 mmol/L (98-107); COR CA(FOR HYPOALB) 9.6 mg/dL (8.5-10.1); COR NA(FOR HYPERGLY) 134 mmol/L (136-145); CREATININE 0.54 mg/dL (0.55-1.02); MAGNESIUM 1.4 mg/dL (1.7-2.9); SODIUM 128 mmol/L (136-145); TOTAL PROTEIN 6.4 g/dL (6.4-8.2); eGFR NON BLACK RACES > 60 (>60)
[2022-07-21 07:22] LABS: ANISOCYTOSIS SLIGHT; HYPOCHROMASIA 2+; MICROCYTOSIS 2+; PLATELET MORPHOLOGY COMMENT NORMAL (NORMAL)
[2022-07-21] MEDS: TORADOL 30 MG VIAL IVP PRN (09:00)
[2022-07-21] MEDS ORDERED: NS 100 ML IV 100 ML with VENOFER 400 MG IV NR ×2 (09:54)
[2022-07-21] MEDS ORDERED: MAGNESIUM SULFATE 1 GRAM/100 mL PREMIX 1 G/100 ML BAG IV SCH (10:40)
[2022-07-21] MEDS: GLUCOPHAGE XR 24-HR PO SCH ×2 (11:14→21:15)
[2022-07-21] MEDS: ACTOS PO SCH (11:15)
[2022-07-21] MEDS ORDERED: TORADOL 30 MG VIAL IM PRN (18:21)
[2022-07-21] MEDS: SNACK - Diabetic Appropriate PO SCH (21:15)
[2022-07-21] MEDS: LANTUS SC SCH (21:22)
[2022-07-21] MEDS: ROCEPHIN VIAL 1 GRAM IM SCH (21:25)
[2022-07-22] MEDS: NS 1,000 ML IV 1,000 ML IV SCH (05:25)
[2022-07-22 06:21] LABS: BASOPHILS # (AUTO) 0.1 X10^3/uL (0.0-0.1); BASOPHILS % (AUTO) 0.6 % (0.2-1.0); EOSINOPHILS % (AUTO) 0.2 % (0.9-2.9); HEMATOCRIT 26.7 % (36.0-47.0); HEMOGLOBIN 8.4 g/dL (12.0-16.0); LYMPHOCYTES # (AUTO) 2.3 X10^3/uL (1.3-2.9); LYMPHOCYTES % (AUTO) 17.8 % (21.0-51.0); MEAN CORPUSCULAR HEMOGLOBIN 20.5 pg (27.0-34.0); MEAN CORPUSCULAR HGB CONC 31.6 g/dL (33.0-35.0); MEAN PLATELET VOLUME 8.2 fL (7.4-11.0); MONOCYTES # (AUTO) 1.2 x10^3/uL (0.3-0.8); MONOCYTES % (AUTO) 9.3 % (0.0-13.0); NEUTROPHILS # (AUTO) 9.2 x10^3/uL (2.2-4.8); NEUTROPHILS % (AUTO) 72.1 % (42.0-75.0); RED CELL DISTRIBUTION WIDTH 19.8 % (11.6-16.5); WHITE BLOOD COUNT 12.7 X10^3/uL (3.6-10.0)
[2022-07-22 06:25] LABS: ALANINE AMINOTRANSFERASE 11 Units/L (12-78); ALBUMIN 1.9 g/dL (3.4-5.0); ALKALINE PHOSPHATASE 101 Units/L (46-116); ASPARTATE AMINO TRANSFERASE 11 Units/L (15-37); BLOOD UREA NITROGEN 6 mg/dL (7-18); CHLORIDE 96 mmol/L (98-107); COR CA(FOR HYPOALB) 9.7 mg/dL (8.5-10.1); COR NA(FOR HYPERGLY) 140 mmol/L (136-145); CREATININE 0.68 mg/dL (0.55-1.02); SODIUM 135 mmol/L (136-145); TOTAL PROTEIN 6.7 g/dL (6.4-8.2); eGFR NON BLACK RACES > 60 (>60)
[2022-07-22] MEDS: HumaLOG SC PRN (06:29)
[2022-07-22 07:06] LABS: ANISOCYTOSIS SLIGHT; HYPOCHROMASIA 2+; MICROCYTOSIS 1+; PLATELET MORPHOLOGY COMMENT NORMAL (NORMAL)
[2022-07-22] MEDS ORDERED: LINZESS PO SCH (09:00)
[2022-07-22] MEDS ORDERED: MAG-OX TAB ONE (09:41)
[2022-07-22] MEDS: ACTOS PO SCH (09:51)
[2022-07-22] MEDS: ROCEPHIN VIAL 1 GRAM IM SCH (09:52)
[2022-07-22] MEDS: GLUCOPHAGE XR 24-HR PO SCH (09:52)
[2022-07-22 12:17] VITALS: BP 122/67
[2022-07-22] MEDS ORDERED: MAG-OX TAB PO SCH (18:23)
== END 2022-07-22 12:20 | disposition home or self-care (01) | DRG 690 ==
LOC: ER 02:37 → MED/SURG 09:48
PROVIDERS: ADMIT Obstetrics & Gynecology Obstetrics; ATTEND Obstetrics & Gynecology Obstetrics
DX: D50.8 Other iron deficiency anemias; E11.65 Type 2 diabetes mellitus with hyperglycemia; Z20.822 Contact with and (suspected) exposure to COVID-19; Z79.899 Other long term (current) drug therapy; N10 Acute pyelonephritis; I10 Essential (primary) hypertension

== ENCOUNTER 2022-12-07 13:50 | Inpatient (IN) ==
--- NOTE | 2022-12-07 14:30 | DR.HYPOGLY ---
HPI Time Seen Time Seen by Provider: 12/07/22 14:22 PCP Primary Care Physician: Dr. Gibbons Complaint Chief Complaint Doctors Comments: WEAKNESS IN LOWER AND MIDDLE BACK SINCE LAST PM. APPEARED TO BE UNDER THE INFLUENCE OF DRUGS. HAD SLURRED SPEECH. Chief Complaint:: Pt states she has weakness in her lower and middle back. That started last night. COVID-19 Coronavirus risk:travel/contact w/high risk person: No Has patient experienced Coronavirus symptoms: No Source History Provided: EMS Mode of Arrival Mode of Arrival: EMS Timing Onset of Chief Complaint: 12/06/22 PMH PMH Past Medical History: Yes Past Medical History: Diabetes Past Surgical History: Yes Surgical History: Tonsillectomy Family History History of Family Medical Conditions: Yes Family Medical History: Cancer, Heart Failure and Hypertension Social History Do you use any recreational Drugs:: Yes (Fentanyl) Travel Risk Coronavirus risk:travel/contact w/high risk person: No Has patient experienced Coronavirus symptoms: No Infectious screening Have you traveled outside the country in the last 6 months?: No Isolation: Standard ROS Review of Systems Constitutional: Malaise, Weakness, Fatigue and Other (LETHARGY) Eyes: No Symptoms Reported ENTM: No Symptoms Reported Respiratoy: No Symptoms Reported Cardiovascular: No Symptoms Reported Gastrointestinal/Abdominal: No Symptoms Reported Genitourinary: No Symptoms Reported Neurological: No Symptoms Reported Musculoskeletal: No Symptoms Reported Integumentary: No Symptoms Reported Hematologic/Lymphatic: No Symptoms Reported Endocrine: No Symptoms Reported Psychiatric: Depression PE Vital Signs Vitals: Temperature 99.5 F Pulse Rate 106 Respiratory Rate 16 Blood Pressure [Left Arm] 123/81 Blood Pressure [Right Arm] 122/67 Blood Pressure 129/93 O2 Sat by Pulse Oximetry 97 General Limitations: Altered Mental Status General Appearance: Appears Intoxicated, Lethargic and Other (APPEARS TO BE ON DRUGS) Eyes Eye exam: Normal Appearance, PERRL and EOMI Pupils: Regular, Round: Bilateral ENT ENT Exam: Normal Exam Nose Exam: Normal Nose Exam Mouth Exam: Normal Inspection Throat Exam: Normal Inspection Neck Neck Exam: Normal Inspection Chest Chest Inspection: Normal Inspection Respiratory Respiratory Exam: Normal Lung Sounds Bilat Respiratory Exam: Bilateral: Clear to Auscultation Abdominal Exam Abdominal Exam: Normal Inspection Extremities Extremities Exam: Normal Inspection Back Back Exam: Normal Inspection and Full ROM MDM Differential diagnosis Induced by: Alcohol and Drug overdose COURSE Treatment Treatment: PATIENT WAS GIVEN INITIAL 1 LITER BOLUS OF NACL AND 15 UNITS OF NOVOLIN R SUBQ . PATIENT HAD A BLOOD SUGAR OF 977 AND A POTASSIUM OF 2A.6.WAS GIVEN 40MEQ OF POTASSIUM IV AND MORE IINSULIN 5 MG IV AFTER SUBCLAVIAN LINE WAS PLACED BY DR ALEXANDER. CONTACT WAS MADE WITH DR EARLY AT 2122 AND HE STATED THAT HE WOULD ACCEPT THE PATIENT TO ADMISSION. [facility] Labs Reviewed Laboratory Results Reviewed?: Yes Result Diagrams: 12/07/22 15:03 12/07/22 17:50 Laboratory: WBC 10.7 X10^3/uL (3.6-10.0) H 12/07/22 15:03 RBC 7.00 X10^6/uL (3.5-5.4) H 12/07/22 15:03 Hgb 15.4 g/dL (12.0-16.0) 12/07/22 15:03 Hct 49.3 % (36.0-47.0) H 12/07/22 15:03 MCV 70.4 fL (80.0-100.0) L 12/07/22 15:03 MCH 22.0 pg (27.0-34.0) L 12/07/22 15:03 MCHC 31.3 g/dL (33.0-35.0) L 12/07/22 15:03 RDW 18.2 % (11.6-16.5) H 12/07/22 15:03 Plt Count 256 X10^3/uL (150.0-450.0) 12/07/22 15:03 Plt Count Comment Adequate (ADEQUATE) 12/07/22 15:03 MPV 9.7 fL (7.4-11.0) 12/07/22 15:03 Neut % (Auto) 76.9 % (42.0-75.0) H 12/07/22 15:03 Lymph % (Auto) 18.1 % (21.0-51.0) L 12/07/22 15:03 [place] % (Auto) 4.6 % (0.0-13.0) 12/07/22 15:03 Eos % (Auto) 0.2 % (0.9-2.9) L 12/07/22 15:03 Baso % (Auto) 0.2 % (0.2-1.0) 12/07/22 15:03 Neut # (Auto) 8.2 x10^3/uL (2.2-4.8) H 12/07/22 15:03 Lymph # (Auto) 1.9 X10^3/uL (1.3-2.9) 12/07/22 15:03 [place] # (Auto) 0.5 x10^3/uL (0.3-0.8) 12/07/22 15:03 Eos # (Auto) 0.0 x10^3/uL (0.0-0.2) 12/07/22 15:03 Baso # (Auto) 0.0 X10^3/uL (0.0-0.1) 12/07/22 15:03 Absolute Nucleated RBC 0.0 /100WBC 12/07/22 15:03 Plt Morphology Comment Normal (NORMAL) 12/07/22 15:03 RBC Morphology Abnormal (NORMAL) A 12/07/22 15:03 Hypochromasia 1+ A 12/07/22 15:03 Poikilocytosis Slight A 12/07/22 15:03 Anisocytosis Slight A 12/07/22 15:03 Microcytosis Slight A 12/07/22 15:03 Sodium 139 mmol/L (136-145) 12/07/22 15:03 Corrected Sodium 160 mmol/L (136-145) H 12/07/22 15:03 Potassium 2.6 mmol/L (3.5-5.1) L* 12/07/22 15:03 Chloride 95 mmol/L (98-107) L 12/07/22 15:03 Carbon Dioxide 40.8 mmol/L (21-32) H 12/07/22 15:03 BUN 8 mg/dL (7-18) 12/07/22 15:03 Creatinine 1.34 mg/dL (0.55-1.02) H 12/07/22 15:03 Est GFR (MDRD) Af Amer > 60 (>60) 12/07/22 15:03 Est GFR (MDRD) Non-Af 51 (>60) L 12/07/22 15:03 Glucose 744 mg/dL (65-99) H* 12/07/22 17:50 POC Glucose (mg/dL) 358 mg/dL (65-99) H 12/07/22 21:36 Calcium 9.4 mg/dL (8.5-10.1) 12/07/22 15:03 Corrected Calcium TNP 12/07/22 15:03 Total Bilirubin 0.50 mg/dL (0.2-1.0) 12/07/22 15:03 AST 15 Units/L (15-37) 12/07/22 15:03 ALT 29 Units/L (12-78) 12/07/22 15:03 Alkaline Phosphatase 157 Units/L (46-116) H 12/07/22 15:03 Total Protein 8.5 g/dL (6.4-8.2) H 12/07/22 15:03 Albumin 3.7 g/dL (3.4-5.0) 12/07/22 15:03 Globulin 4.8 g/dL (2.5-4.5) H 12/07/22 15:03 Albumin/Globulin Ratio 0.8 Ratio (1.1-2.1) L 12/07/22 15:03 Specimen Type Clean catch urine 12/07/22 15:06 Urine Color Straw (YELLOW) 12/07/22 15:06 Urine Appearance Clear (CLEAR) 12/07/22 15:06 Urine pH 7.0 (5.0 - 8.0) 12/07/22 15:06 Ur Specific [place] 1.015 (1.000-1.030) 12/07/22 15:06 Urine Protein 1+ (NEGATIVE) 12/07/22 15:06 Urine Glucose (UA) 4+ (NEGATIVE) 12/07/22 15:06 Urine Ketones Negative (NEGATIVE) 12/07/22 15:06 Urine Blood 1+ (NEGATIVE) 12/07/22 15:06 Urine Nitrite Negative (NEGATIVE) 12/07/22 15:06 Urine Bilirubin Negative (NEGATIVE) 12/07/22 15:06 Urine Urobilinogen Normal (NORMAL) 12/07/22 15:06 Ur Leukocyte Esterase Negative (NEGATIVE) 12/07/22 15:06 Urine RBC 0-2 /HPF (0-3) 12/07/22 15:06 Urine WBC 5-10 /HPF (0-5) A 12/07/22 15:06 Ur Squamous Epith Cells Moderate /HPF (NEGATIVE) 12/07/22 15:06 Urine Bacteria Trace /HPF (NEGATIVE) 12/07/22 15:06 Urine Yeast Moderate /HPF (NEGATIVE) 12/07/22 15:06 Ur Culture Indicated? No/not indicated 12/07/22 15:06 Urine Opiates Screen Negative (NEG=<300) 12/07/22 15:06 Urine Methadone Screen Negative (NEG=<300) 12/07/22 15:06 Ur Barbiturates Screen Negative (NEG=<200) 12/07/22 15:06 Ur Phencyclidine Scrn Negative (NEG=<25) 12/07/22 15:06 Ur Amphetamines Screen Negative (NEG=<1000) 12/07/22 15:06 U Benzodiazepines Scrn Negative (NEG=<200) 12/07/22 15:06 Urine Cocaine Screen Negative (NEG=<300) 12/07/22 15:06 U Marijuana (THC) Screen Negative (NEG=<50) 12/07/22 15:06 Acetone, Semi-Quant Negative (NEGATIVE) 12/07/22 19:32 Opioid Opioid Risk Tool Age (Dre box if 16-45): Yes History of Preadolescent Sexual Abuse: No Total: 1 Total Score Risk Category: Low Risk Copyright: Yinka BRENNAN predicting aberrant behaviors Discharge Plan Diagnosis Discharge Problem: Diabetic hyperosmolar non-ketotic state, Hypokalemia, Drug use Discharge Plan Patient Disposition: 09 ADMITTED INPATIENT Condition: Stable Prescriptions: No Action pioglitazone 45 mg Tablet 45 mg PO DAILY Qty: 30 2RF metformin 500 mg Tablet Extended Release 24 Hr 1,000 mg PO BID Qty: 120 2RF Health Concerns: Post Hospitalization: new medications and changes needed to prevent readmission or further decline. Pt educated and given instructions on all concerns. Plan of Treatment: Continue with present treatment and follow up plan. Pt is to keep follow up appointment as instructed and take medications as ordered. Orders to Discharge Patient Discharge Orders: Transfer (Routine); Ordered 12/07/22 Ordered By: Arthur Villalobos Follow ups/Referrals Follow ups/Referrals: YAMILET GIBBONS [Primary Care Provider] - 3 days
[2022-12-07 15:09] LABS: MONOCYTES # (AUTO) 0.5 x10^3/uL (0.3-0.8)
[2022-12-07 15:13] LABS: BASOPHILS % (AUTO) 0.2 % (0.2-1.0); EOSINOPHILS % (AUTO) 0.2 % (0.9-2.9); HEMOGLOBIN 15.4 g/dL (12.0-16.0); MEAN CORPUSCULAR HGB CONC 31.3 g/dL (33.0-35.0)
[2022-12-07 15:19] LABS: HEMATOCRIT 49.3 % (36.0-47.0); LYMPHOCYTES # (AUTO) 1.9 X10^3/uL (1.3-2.9); LYMPHOCYTES % (AUTO) 18.1 % (21.0-51.0); MEAN CORPUSCULAR VOLUME 70.4 fL (80.0-100.0); MEAN PLATELET VOLUME 9.7 fL (7.4-11.0); MONOCYTES % (AUTO) 4.6 % (0.0-13.0); NEUTROPHILS # (AUTO) 8.2 x10^3/uL (2.2-4.8); NEUTROPHILS % (AUTO) 76.9 % (42.0-75.0); RED CELL DISTRIBUTION WIDTH 18.2 % (11.6-16.5); WHITE BLOOD COUNT 10.7 X10^3/uL (3.6-10.0)
[2022-12-07] MEDS ORDERED: ZOFRAN INJ 4 MG VIAL ONE (15:19)
[2022-12-07 15:20] LABS: ALANINE AMINOTRANSFERASE 29 Units/L (12-78); ALBUMIN 3.7 g/dL (3.4-5.0); ALKALINE PHOSPHATASE 157 Units/L (46-116); ASPARTATE AMINO TRANSFERASE 15 Units/L (15-37); BLOOD UREA NITROGEN 8 mg/dL (7-18); CALCIUM 9.4 mg/dL (8.5-10.1); CARBON DIOXIDE 40.8 mmol/L (21-32); CHLORIDE 95 mmol/L (98-107); CREATININE 1.34 mg/dL (0.55-1.02); SODIUM 139 mmol/L (136-145); TOTAL PROTEIN 8.5 g/dL (6.4-8.2); eGFR NON BLACK RACES 51 (>60)
[2022-12-07 15:20] LABS: BILIRUBIN,URINE NEGATIVE (NEGATIVE); BLOOD/HEMOGLOBIN,URINE 1+ (NEGATIVE); GLUCOSE, URINE 4+ (NEGATIVE); KETONES,URINE NEGATIVE (NEGATIVE); LEUKOCYTE ESTERASE ,URINE NEGATIVE (NEGATIVE); NITRITES,URINE NEGATIVE (NEGATIVE); PROTEIN,URINE 1+ (NEGATIVE); UROBILINOGEN,URINE NORMAL (NORMAL)
[2022-12-07] MEDS ORDERED: ZOFRAN INJ 4 MG VIAL IM ONE (15:22)
[2022-12-07 15:31] LABS: APPEARANCE,URINE CLEAR (CLEAR); BACTERIA,URINE TRACE /HPF (NEGATIVE); COLOR,URINE STRAW (YELLOW); RBC,URINE 0-2 /HPF (0-3); SQUAMOUS EPITHELIAL CELL,UR MODERATE /HPF (NEGATIVE)
[2022-12-07 15:32] LABS: YEAST,URINE MODERATE /HPF (NEGATIVE)
[2022-12-07 15:57] LABS: PLATELET MORPHOLOGY COMMENT NORMAL (NORMAL)
[2022-12-07] MEDS ORDERED: NovoLIN R (or HumuLIN R) SUBCUT ONE (15:58)
[2022-12-07 15:59] LABS: HYPOCHROMASIA 1+; POIKILOCYTOSIS SLIGHT
[2022-12-07 16:00] LABS: ANISOCYTOSIS SLIGHT; MICROCYTOSIS SLIGHT
[2022-12-07] MEDS ORDERED: NovoLIN R (or HumuLIN R) ONE ×3 (16:00→19:28)
[2022-12-07 16:30] LABS: COR NA(FOR HYPERGLY) 160 mmol/L (136-145)
[2022-12-07] MEDS ORDERED: NS 1,000 ML IV 1,000 ML IV ONE (18:08)
[2022-12-07] MEDS ORDERED: NS 1,000 ML IV 1,000 ML ONE ×2 (18:09→19:28)
[2022-12-07] MEDS ORDERED: K-RIDER 10 MEQ/NS 100 ML 10 MEQ/100 ML BAG IV ONE ×2 (18:09)
--- NOTE | 2022-12-07 18:16 | RAD ---
EXAM: CHEST X-RAYHISTORY: Verification of central line position status post line placement.TECHNIQUE: AP chest x-ray dated December 07, 2022 at 5:55 PMCOMPARISON: None available.FINDINGS:There is a left subclavian central line with the distal tip in the expected location of the distal SVC (adequate position). Recommend careful clinical correlation to ensure venous blood return.The heart size and mediastinum are within normal limits. The lung gomez and costophrenic angles are clear. There is no acute parenchymal infiltrate, pleural effusion, or pneumothorax seen. The visualized bony structures are within normal limits.IMPRESSION:1. Left subclavian central venous catheter with the distal tip in the expected location of the distal SVC (adequate position). Recommend careful clinical correlation to ensure venous blood return.2. No evidence for acute cardiopulmonary disease seen.Electronically signed by: Aysha Skelton (Dec 07, 2022 18:14:11)
[2022-12-07] MEDS ORDERED: NovoLIN R (or HumuLIN R) IV ONE (19:22)
[2022-12-07] MEDS ORDERED: NS 1,000 ML IV 1,000 ML IV SCH (20:00)
[2022-12-07 23:12] VITALS: BMI 19.9
[2022-12-08] MEDS: NS 1,000 ML IV 1,000 ML IV SCH ×3 (01:02→15:39)
[2022-12-08] MEDS ORDERED: NovoLIN R (or HumuLIN R) SUBCUT PRN (05:08)
[2022-12-08 05:37] LABS: BASOPHILS # (AUTO) 0.1 X10^3/uL (0.0-0.1); BASOPHILS % (AUTO) 0.4 % (0.2-1.0); EOSINOPHILS # (AUTO) 0.1 x10^3/uL (0.0-0.2); EOSINOPHILS % (AUTO) 0.6 % (0.9-2.9); HEMATOCRIT 37.7 % (36.0-47.0); LYMPHOCYTES # (AUTO) 3.9 X10^3/uL (1.3-2.9); LYMPHOCYTES % (AUTO) 28.6 % (21.0-51.0); MEAN CORPUSCULAR HEMOGLOBIN 21.3 pg (27.0-34.0); MEAN CORPUSCULAR HGB CONC 31.2 g/dL (33.0-35.0); MEAN CORPUSCULAR VOLUME 68.4 fL (80.0-100.0); MEAN PLATELET VOLUME 9.7 fL (7.4-11.0); MONOCYTES # (AUTO) 0.7 x10^3/uL (0.3-0.8); MONOCYTES % (AUTO) 4.9 % (0.0-13.0); NEUTROPHILS # (AUTO) 8.9 x10^3/uL (2.2-4.8); NEUTROPHILS % (AUTO) 65.5 % (42.0-75.0); RED CELL DISTRIBUTION WIDTH 17.6 % (11.6-16.5); WHITE BLOOD COUNT 13.6 X10^3/uL (3.6-10.0)
[2022-12-08 05:51] LABS: ALANINE AMINOTRANSFERASE 23 Units/L (12-78); ALBUMIN 2.8 g/dL (3.4-5.0); ALKALINE PHOSPHATASE 109 Units/L (46-116); ASPARTATE AMINO TRANSFERASE 15 Units/L (15-37); BLOOD UREA NITROGEN 9 mg/dL (7-18); CALCIUM 8.6 mg/dL (8.5-10.1); CARBON DIOXIDE 41.2 mmol/L (21-32); COR CA(FOR HYPOALB) 9.6 mg/dL (8.5-10.1); CREATININE 0.82 mg/dL (0.55-1.02); TOTAL PROTEIN 6.4 g/dL (6.4-8.2); eGFR NON BLACK RACES > 60 (>60)
[2022-12-08 05:58] LABS: ANISOCYTOSIS SLIGHT; CHLORIDE 103 mmol/L (98-107); COR NA(FOR HYPERGLY) 152 mmol/L (136-145); HEMOGLOBIN 11.7 g/dL (12.0-16.0); HYPOCHROMASIA 2+; MICROCYTOSIS 1+; PLATELET MORPHOLOGY COMMENT NORMAL (NORMAL); SODIUM 145 mmol/L (136-145)
[2022-12-08 05:59] LABS: STOMATOCYTES PRESENT
[2022-12-08] MEDS ORDERED: MICRO K EXTEN CAP 10 MEQ PO PRN (06:10)
[2022-12-08] MEDS ORDERED: POTASSIUM CHL 60 MEQ/NS 0.45% 500 ML IV PRN (06:10)
[2022-12-08] MEDS ORDERED: POTASSIUM CHL 40 MEQ/NS 0.45% 500 ML IV PRN (06:10)
[2022-12-08] MEDS ORDERED: POTASSIUM CHLORIDE LIQ 20 MEQ UDC PO PRN (06:10)
[2022-12-08] MEDS ORDERED: K-RIDER 10 MEQ/NS 100 ML 10 MEQ/100 ML BAG IV ONE (06:14)
[2022-12-08] MEDS: K-RIDER 10 MEQ/NS 100 ML 10 MEQ/100 ML BAG IV PRN ×3 (06:22→12:03)
[2022-12-08] MEDS ORDERED: ROCEPHIN VIAL 1 GRAM 1 G in NS 100 ML IV + SPIKE MINIBAG* 100 ML IV SCH (09:00)
[2022-12-08] MEDS: ROCEPHIN VIAL 1 GRAM 1 G in NS 100 ML IV 100 ML IV SCH (10:36)
[2022-12-08] MEDS: NovoLIN R (or HumuLIN R) SUBCUT PRN ×3 (11:25→20:40)
[2022-12-08] MEDS: ACTOS PO SCH (14:44)
[2022-12-08] MEDS: K-DUR TAB 20 MEQ PO PRN (15:40)
[2022-12-08] MEDS ORDERED: SNACK - Diabetic Appropriate PO SCH ×2 (20:00)
[2022-12-09] MEDS: NS 1,000 ML IV 1,000 ML IV SCH ×5 (00:22→16:05)
[2022-12-09 05:32] LABS: BASOPHILS % (AUTO) 0.2 % (0.2-1.0); EOSINOPHILS # (AUTO) 0.1 x10^3/uL (0.0-0.2); EOSINOPHILS % (AUTO) 1.2 % (0.9-2.9); HEMATOCRIT 32.3 % (36.0-47.0); HEMOGLOBIN 10.4 g/dL (12.0-16.0); LYMPHOCYTES # (AUTO) 2.8 X10^3/uL (1.3-2.9); LYMPHOCYTES % (AUTO) 34.6 % (21.0-51.0); MEAN CORPUSCULAR HEMOGLOBIN 21.9 pg (27.0-34.0); MEAN CORPUSCULAR HGB CONC 32.2 g/dL (33.0-35.0); MEAN PLATELET VOLUME 9.9 fL (7.4-11.0); MONOCYTES # (AUTO) 0.5 x10^3/uL (0.3-0.8); MONOCYTES % (AUTO) 5.8 % (0.0-13.0); NEUTROPHILS # (AUTO) 4.8 x10^3/uL (2.2-4.8); NEUTROPHILS % (AUTO) 58.2 % (42.0-75.0); RED BLOOD COUNT 4.75 X10^6/uL (3.5-5.4); WHITE BLOOD COUNT 8.2 X10^3/uL (3.6-10.0)
[2022-12-09 05:46] LABS: ALANINE AMINOTRANSFERASE 22 Units/L (12-78); ALBUMIN 2.3 g/dL (3.4-5.0); ALKALINE PHOSPHATASE 84 Units/L (46-116); ASPARTATE AMINO TRANSFERASE 26 Units/L (15-37); BLOOD UREA NITROGEN 8 mg/dL (7-18); CALCIUM 8.2 mg/dL (8.5-10.1); CARBON DIOXIDE 32.9 mmol/L (21-32); CHLORIDE 103 mmol/L (98-107); COR CA(FOR HYPOALB) 9.6 mg/dL (8.5-10.1); COR NA(FOR HYPERGLY) 146 mmol/L (136-145); CREATININE 0.49 mg/dL (0.55-1.02); SODIUM 141 mmol/L (136-145); TOTAL PROTEIN 5.2 g/dL (6.4-8.2); eGFR NON BLACK RACES > 60 (>60)
[2022-12-09] MEDS: NovoLIN R (or HumuLIN R) SUBCUT PRN ×4 (05:47→21:34)
[2022-12-09 05:50] LABS: ANISOCYTOSIS SLIGHT; HYPOCHROMASIA 2+; PLATELET MORPHOLOGY COMMENT NORMAL (NORMAL)
[2022-12-09 05:51] LABS: MICROCYTOSIS 1+
[2022-12-09] MEDS: LANTUS SC SCH (09:34)
[2022-12-09] MEDS: K-DUR TAB 20 MEQ PO PRN ×2 (09:35→17:43)
[2022-12-09] MEDS: ROCEPHIN VIAL 1 GRAM 1 G in NS 100 ML IV 100 ML IV SCH (09:35)
[2022-12-09] MEDS: ACTOS PO SCH (09:36)
[2022-12-09] MEDS ORDERED: ZOFRAN INJ 4 MG VIAL IVP PRN (14:17)
--- NOTE | 2022-12-09 15:51 | DR.H&P ---
H&P - History & Physical for Day of: H&P Date: 12/07/22 - Chief Complaint Chief Complaint: BACK PAIN, LETHARGY, SLURRED SPEECH, DRUG USE - History of Present Illness History of Present Illness: XIMENA IS A 27 YEAR OLD PATIENT OF . SHE PRESENTED TO THE ER WITH COMPLAINTS OF MIDDLE AND LOWER BACK PAIN AND LOWER EXTREMITY WEAKNESS X 1 DAY. UPON EXAMINATION, PATIENT WAS NOTED TO BE LETHARGIC. SHE HAD SLURRED SPEECH AND APPEARED TO BE UNDER THE INFLUENCE. SHE ADMITTED TO RECREATIONAL USE OF FENTANYL. SHE HAS A PMH OF TYPE 2 DIABETES AND TONSILLECTOMY. HER FAMILY MEMBERS REPORT THAT SHE IS GENERALLY NON-COMPLIANT WITH HER METOPROLOL AND ACTOS. ON ARRIVAL, HER VITALS WERE: 99.5-121-16-93%-132/56. LABS WERE OBTAINED. WBC 10.7, RBC 7.00, HGB 15.4, HCT 49.3, PLT COUTN 256, SODIUM 139, POTASSIUM 2.6, CHLORIDE 95, CARBON DIOXIDE 40.8, BUN 8, CREATININE 1.34, GLUCOSE 977, CALCIUM 9.4, TOTAL BILI 0.50, AST 15, ALT 19, ALK PHOS 157, TOTAL PROTEIN 8.5, ALBUMIN 3.7. A URINALYSIS WAS OBTAINED AND REVEALED: WBC 5-10, RBC 0-2, BACTERIA TRACE, LEUKOCYTES NEGATIVE, YEAST MODERATE, GLUCOSE 4+. URINE ACETONES WERE NEGATIVE. A URINE CULTURE WAS SET UP. IN THE ER, SHE WAS GIVEN ZOFRAN 4MG IV X 1 DOSE, NOVOLIN R 15 UNITS SC X 1 DOSE, A NORMAL SALINE 1 LITER BOLUS, AND POTASSIUM CHLORIDE 10MEQ X 1 DOSE. AT APPROXIMATELLY 1750, HER BLOOD GLUCOSE HAD DECREASED TO 744. SHE WAS GIVEN 5 ADDITIONAL UNITS AT 1934. AT 2136, BLOOD GLUCOSE HAD DECREASED TO 358. DECISION WAS MADE TO ADMIT PATIENT TO THE HOSPITAL INPATIENT STATUS FOR FURTHER EVALUATION AND TREATMENT OF HYPEROSMOLAR NONKETOTIC STATE, HYPOKALEMIA, UTI, AND DRUG USE. SHE WAS STARTED ON NORMAL SALINE AT 100 ML/HR, ROCEPHIN 1G IV DAILY, OTBS ACHS, HUMULIN R SLIDING SCALE, ACTOS 45MG DAILY, ZOFRAN 4MG IV Q6H PRN, AND THE POTASSIUM AND MAGNESIUM PROTOCOLS. OTHERWISE, WE PLAN TO FOLLOW-UP WITH AM LABS AND CONTINUE TO MONITOR. TIME SPENT ON CLINICAL ASSESSMENT, REVIEWING LABS AND IMAGING, DECISION MAKING, AND DOCUMENTATION GREATER THAN 75 MINUTES. - Past Medical History Past Medical History: Diabetes - Past Surgical History Surgical History: Tonsillectomy - Family History Family Medical History: Cancer, Heart Failure, Hypertension - Social History Does patient currently use any type of tobacco product: Yes Have you used tobacco products in the last 12 months: Yes Type of Tobacco Use: Cigarettes Does any household member use tobacco: Yes Alcohol Use: Occasionally Drug Use: Other - Medications Home Medications: Sulfa (Sulfonamide Antibiotics) Allergy (Verified 07/31/19 23:40) - Review of Systems Constitutional: See HPI, Weakness Eyes: No Symptoms Reported ENT: No Symptoms Reported Respiratory: No Symptoms Reported Cardiovascular: No Symptoms Reported Gastrointestinal: No Symptoms Reported Genitourinary: No Symptoms Reported Musculoskeletal: Back Pain Skin: No Symptoms Reported Neurological: Weakness, Change in Speech - Physical Exam Vital Signs: Temperature 97.5 F Pulse Rate [Brachial] 110 Pulse Rate 106 Respiratory Rate 20 Blood Pressure [Left Arm] 134/76 Blood Pressure [Right Arm] 122/67 Blood Pressure 129/93 O2 Sat by Pulse Oximetry 100 Oriented: Normal Eyes: Normal Ear: Normal Nose: Normal Throat: Normal Respiratory: Clear Throughout Cardiovascular: Normal : Normal Auscultation: Bowel Sounds: Normal Palpation: Normal Tenderness: Normal Skin: Normal Musculoskeletal: Back:Lumbar, Back:Midline, Tender Psychiatric: Other (LETHARGIC ) Mood Description: Flat Affect: Normal Speech Pattern: Delayed, Slurred - Assessment/Plan (1) Diabetic hyperosmolar non-ketotic state Status: Acute Plan: ADMIT, NORMAL SALINE AT 100 ML/HR, ROCEPHIN 1G IV DAILY, OTBS ACHS, HUMULIN R SLIDING SCALE, ACTOS 45MG DAILY, ZOFRAN 4MG IV Q6H PRN, AND THE POTASSIUM AND MAGNESIUM PROTOCOLS. MONITOR LABS (2) Urinary tract infection Qualifiers: Encounter type: initial encounter Status: Acute (3) Hypokalemia Status: Acute (4) Drug use Status: Acute (5) Diabetes mellitus Qualifiers: Diabetes mellitus type: other specified (including SEAN) Diabetes mellitus tank terminal gauger insulin use: without tank terminal gauger use Diabetes mellitus complication status: with hyperglycemia Qualified Code(s): E13.65 - Other specified diabetes mellitus with hyperglycemia Status: Chronic - Allergies Allergies/Adverse Reactions: Allergies Allergy/AdvReac Type Severity Reaction Status Date / Time Sulfa (Sulfonamide Allergy Verified 07/31/19 23:40 Antibiotics)
--- NOTE | 2022-12-09 16:10 | PCM.PROG ---
Progress Note - Progress Note for Day of Date of Exam: 12/09/22 - Subjective Subjective: XIMENA IS CURRENTLY INPATIENT STATUS FOR TREATMENT OF HYPEROSMOLAR NONKETOTIC STATE, HYPOKALEMIA, UTI, AND DRUG USE. TODAY, SHE IS ALERT AND ORIENTED, LYING IN BED ON MORNING ROUNDS. SHE COMPLAINS OF GENERALIZED WEAKNESS AND LOW BACK PAIN TODAY. SHE REPORTS SLIGHT IMPROVEMENT IN SYMPTOMS SINCE ADMISSION. ON EXAMINATION, HEART IS REGULAR IN RATE AND RHYTHM. BILATERAL LUNGS ARE CLEAR TO AUSCULTATION. ABDOMEN IS FLAT, SOFT, AND NON-TENDER WITH NORMAL BOWEL SOUNDS NOTED IN ALL QUADRANTS. NO UPPER OR LOWER EXTREMITY EDEMA NOTED. HER VITALS THIS MORNING WERE: 98.8-91-18-99%-117/69. LABS WERE OBTAINED. WBC 8.2, RBC 10.4, HCT 32.3, PLT COUNT 174, SODIUM 141, POTASSIUM 3.0, CHLORIDE 103, CARBON DIOXIDE 32.9, BUN 8, CREATININE 0.49, GLUCOSE 295, CALCIUM 8.2, AST 26, ALT 22, ALK PHOS 84, TOTAL PROTEIN 5.2, ALBUMIN 2.3. A URINE CULTURE IS PENDING. BLOOD GLUCOSE LEVELS REMAINED 300s-400s THROUGHOUT THE NIGHT. SHE IS CURRENTLY RECEIVING NORMAL SALINE AT 100 ML/HR, ROCEPHIN 1G IV DAILY, OTBS ACHS, HUMULIN R SLIDING SCALE, ACTOS 45MG DAILY, ZOFRAN 4MG IV Q6H PRN, AND THE POTASSIUM AND MAGNESIUM PROTOCOLS. TODAY, WE WILL ADD LANTUS 10 UNITS SC DAILY. OTHERWISE, WE PLAN TO FOLLOW-UP WITH AM LABS AND CONTINUE TO MONITOR. TIME SPENT ON CLINICAL ASSESSMENT, REVIEWING LABS AND IMAGING, DECISION MAKING, AND DOCUMENTATION GREATER THAN 45 MINUTES. - Past Medical Family Social History Past Med/Fam/Surg Hx: No changes since H&P Allergies: Allergies Sulfa (Sulfonamide Antibiotics) Allergy (Verified 07/31/19 23:40) - Review of Systems ROS: No change since H&P - Vital Signs and I&O's Vital Signs: Temperature 98.9 F Pulse Rate [Brachial] 102 Pulse Rate 106 Respiratory Rate 20 Blood Pressure [Left Arm] 123/75 Blood Pressure [Right Arm] 122/67 Blood Pressure 129/93 O2 Sat by Pulse Oximetry 99 Intake and Output: Intake & Output 12/07/22 12/08/22 12/09/22 12/10/22 11:59 11:59 11:59 11:59 Intake Total 1864 5229 / 5229 Balance 1864 5229 / 5229 - Physical Exam Oriented: Normal Eyes: Normal Ear: Normal Nose: Normal Throat: Normal Respiratory: Normal Cardiovascular: Normal : Normal Auscultation: Bowel Sounds: Normal Palpation: Normal Tenderness: Normal Skin: Normal Musculoskeletal: Back:Lumbar, Back:Midline, Tender Psychiatric: Normal Mood Description: Calm Affect: Normal Speech Pattern: Delayed, Slurred - Laboratory and Diagnostics Result Diagrams: 12/09/22 04:40 12/09/22 14:33 Labs: 12/08/22 16:59 Urine,Clean Catch Urine Culture - Final Laboratory WBC 8.2 X10^3/uL (3.6-10.0) 12/09/22 04:40 RBC 4.75 X10^6/uL (3.5-5.4) 12/09/22 04:40 Hgb 10.4 g/dL (12.0-16.0) L 12/09/22 04:40 Hct 32.3 % (36.0-47.0) L 12/09/22 04:40 MCV 68.0 fL (80.0-100.0) L 12/09/22 04:40 MCH 21.9 pg (27.0-34.0) L 12/09/22 04:40 MCHC 32.2 g/dL (33.0-35.0) L 12/09/22 04:40 RDW 18.0 % (11.6-16.5) H 12/09/22 04:40 Plt Count 174 X10^3/uL (150.0-450.0) 12/09/22 04:40 Plt Count Comment Adequate (ADEQUATE) 12/09/22 04:40 MPV 9.9 fL (7.4-11.0) 12/09/22 04:40 Neut % (Auto) 58.2 % (42.0-75.0) 12/09/22 04:40 Lymph % (Auto) 34.6 % (21.0-51.0) 12/09/22 04:40 [place] % (Auto) 5.8 % (0.0-13.0) 12/09/22 04:40 Eos % (Auto) 1.2 % (0.9-2.9) 12/09/22 04:40 Baso % (Auto) 0.2 % (0.2-1.0) 12/09/22 04:40 Neut # (Auto) 4.8 x10^3/uL (2.2-4.8) 12/09/22 04:40 Lymph # (Auto) 2.8 X10^3/uL (1.3-2.9) 12/09/22 04:40 [place] # (Auto) 0.5 x10^3/uL (0.3-0.8) 12/09/22 04:40 Eos # (Auto) 0.1 x10^3/uL (0.0-0.2) 12/09/22 04:40 Baso # (Auto) 0.0 X10^3/uL (0.0-0.1) 12/09/22 04:40 Absolute Nucleated RBC 0.0 /100WBC 12/09/22 04:40 Plt Morphology Comment Normal (NORMAL) 12/09/22 04:40 RBC Morphology Abnormal (NORMAL) A 12/09/22 04:40 Hypochromasia 2+ A 12/09/22 04:40 Poikilocytosis Slight A 12/07/22 15:03 Anisocytosis Slight A 12/09/22 04:40 Microcytosis 1+ A 12/09/22 04:40 Stomatocytes Present 12/08/22 04:23 Sodium 141 mmol/L (136-145) 12/09/22 04:40 Corrected Sodium 146 mmol/L (136-145) H 12/09/22 04:40 Potassium 3.0 mmol/L (3.5-5.1) L 12/09/22 04:40 Chloride 103 mmol/L (98-107) 12/09/22 04:40 Carbon Dioxide 32.9 mmol/L (21-32) H 12/09/22 04:40 BUN 8 mg/dL (7-18) 12/09/22 04:40 Creatinine 0.49 mg/dL (0.55-1.02) L 12/09/22 04:40 Est GFR (MDRD) Af Amer > 60 (>60) 12/09/22 04:40 Est GFR (MDRD) Non-Af > 60 (>60) 12/09/22 04:40 Glucose 398 mg/dL (65-99) H 12/09/22 14:33 POC Glucose (mg/dL) 393 mg/dL (65-99) H 12/09/22 15:57 Calcium 8.2 mg/dL (8.5-10.1) L 12/09/22 04:40 Corrected Calcium 9.6 mg/dL (8.5-10.1) 12/09/22 04:40 Magnesium 2.2 mg/dL (2.0-2.9) 12/08/22 04:23 Total Bilirubin 0.50 mg/dL (0.2-1.0) 12/09/22 04:40 AST 26 Units/L (15-37) 12/09/22 04:40 ALT 22 Units/L (12-78) 12/09/22 04:40 Alkaline Phosphatase 84 Units/L (46-116) 12/09/22 04:40 Total Protein 5.2 g/dL (6.4-8.2) L 12/09/22 04:40 Albumin 2.3 g/dL (3.4-5.0) L 12/09/22 04:40 Globulin 2.9 g/dL (2.5-4.5) 12/09/22 04:40 Albumin/Globulin Ratio 0.8 Ratio (1.1-2.1) L 12/09/22 04:40 Specimen Type Clean catch urine 12/07/22 15:06 Urine Color Straw (YELLOW) 12/07/22 15:06 Urine Appearance Clear (CLEAR) 12/07/22 15:06 Urine pH 7.0 (5.0 - 8.0) 12/07/22 15:06 Ur Specific [place] 1.015 (1.000-1.030) 12/07/22 15:06 Urine Protein 1+ (NEGATIVE) 12/07/22 15:06 Urine Glucose (UA) 4+ (NEGATIVE) 12/07/22 15:06 Urine Ketones Negative (NEGATIVE) 12/07/22 15:06 Urine Blood 1+ (NEGATIVE) 12/07/22 15:06 Urine Nitrite Negative (NEGATIVE) 12/07/22 15:06 Urine Bilirubin Negative (NEGATIVE) 12/07/22 15:06 Urine Urobilinogen Normal (NORMAL) 12/07/22 15:06 Ur Leukocyte Esterase Negative (NEGATIVE) 12/07/22 15:06 Urine RBC 0-2 /HPF (0-3) 12/07/22 15:06 Urine WBC 5-10 /HPF (0-5) A 12/07/22 15:06 Ur Squamous Epith Cells Moderate /HPF (NEGATIVE) 12/07/22 15:06 Urine Bacteria Trace /HPF (NEGATIVE) 12/07/22 15:06 Urine Yeast Moderate /HPF (NEGATIVE) 12/07/22 15:06 Ur Culture Indicated? No/not indicated 12/07/22 15:06 Urine Opiates Screen Negative (NEG=<300) 12/07/22 15:06 Urine Methadone Screen Negative (NEG=<300) 12/07/22 15:06 Ur Barbiturates Screen Negative (NEG=<200) 12/07/22 15:06 Ur Phencyclidine Scrn Negative (NEG=<25) 12/07/22 15:06 Ur Amphetamines Screen Negative (NEG=<1000) 12/07/22 15:06 U Benzodiazepines Scrn Negative (NEG=<200) 12/07/22 15:06 Urine Cocaine Screen Negative (NEG=<300) 12/07/22 15:06 U Marijuana (THC) Screen Negative (NEG=<50) 12/07/22 15:06 Acetone, Semi-Quant Negative (NEGATIVE) 12/07/22 19:32 - Plan (1) Diabetic hyperosmolar non-ketotic state Status: Acute Plan: ADMIT, NORMAL SALINE AT 100 ML/HR, ROCEPHIN 1G IV DAILY, OTBS ACHS, HUMULIN R SLIDING SCALE, LANTUS 10 UNITS SC DAILY, ACTOS 45MG DAILY, ZOFRAN 4MG IV Q6H PRN, AND THE POTASSIUM AND MAGNESIUM PROTOCOLS. MONITOR LABS (2) Urinary tract infection Status: Acute Qualifiers: Encounter type: initial encounter (3) Hypokalemia Status: Acute (4) Drug use Status: Acute (5) Diabetes mellitus Status: Chronic Qualifiers: Diabetes mellitus type: other specified (including SEAN) Diabetes mellitus long chain quiller tender insulin use: without long chain quiller tender use Diabetes mellitus complication status: with hyperglycemia Qualified Code(s): E13.65 - Other specified diabetes mellitus with hyperglycemia
[2022-12-09] MEDS: MAGNESIUM SULFATE 1 GRAM/100 mL PREMIX 1 G/100 ML BAG IV PRN ×2 (18:12→19:22)
[2022-12-09] MEDS: SNACK - Diabetic Appropriate PO SCH (21:29)
[2022-12-09] MEDS: KLOR-CON PO PRN (21:36)
[2022-12-10] MEDS: KLOR-CON PO PRN (00:04)
[2022-12-10 03:04] LABS: BASOPHILS % (AUTO) 0.3 % (0.2-1.0); EOSINOPHILS # (AUTO) 0.1 x10^3/uL (0.0-0.2); EOSINOPHILS % (AUTO) 0.9 % (0.9-2.9); HEMATOCRIT 32.3 % (36.0-47.0); HEMOGLOBIN 10.3 g/dL (12.0-16.0); LYMPHOCYTES # (AUTO) 2.7 X10^3/uL (1.3-2.9); LYMPHOCYTES % (AUTO) 34.9 % (21.0-51.0); MEAN CORPUSCULAR HEMOGLOBIN 21.8 pg (27.0-34.0); MEAN CORPUSCULAR HGB CONC 32.1 g/dL (33.0-35.0); MEAN CORPUSCULAR VOLUME 68.1 fL (80.0-100.0); MEAN PLATELET VOLUME 9.1 fL (7.4-11.0); MONOCYTES # (AUTO) 0.4 x10^3/uL (0.3-0.8); MONOCYTES % (AUTO) 4.9 % (0.0-13.0); NEUTROPHILS # (AUTO) 4.5 x10^3/uL (2.2-4.8); RED BLOOD COUNT 4.74 X10^6/uL (3.5-5.4); RED CELL DISTRIBUTION WIDTH 17.9 % (11.6-16.5); WHITE BLOOD COUNT 7.7 X10^3/uL (3.6-10.0)
[2022-12-10 03:12] LABS: ALANINE AMINOTRANSFERASE 26 Units/L (12-78); ALBUMIN 2.4 g/dL (3.4-5.0); ALKALINE PHOSPHATASE 79 Units/L (46-116); ASPARTATE AMINO TRANSFERASE 30 Units/L (15-37); BLOOD UREA NITROGEN 7 mg/dL (7-18); CALCIUM 8.3 mg/dL (8.5-10.1); CARBON DIOXIDE 25.2 mmol/L (21-32); CHLORIDE 105 mmol/L (98-107); COR CA(FOR HYPOALB) 9.6 mg/dL (8.5-10.1); COR NA(FOR HYPERGLY) 146 mmol/L (136-145); CREATININE 0.54 mg/dL (0.55-1.02); MAGNESIUM 1.7 mg/dL (2.0-2.9); SODIUM 141 mmol/L (136-145); TOTAL PROTEIN 5.4 g/dL (6.4-8.2); eGFR NON BLACK RACES > 60 (>60)
[2022-12-10 03:21] LABS: ANISOCYTOSIS SLIGHT; HYPOCHROMASIA 2+; MICROCYTOSIS 1+; PLATELET MORPHOLOGY COMMENT NORMAL (NORMAL)
[2022-12-10] MEDS: MAGNESIUM SULFATE 1 GRAM/100 mL PREMIX 1 G/100 ML BAG IV PRN ×2 (05:13→15:35)
[2022-12-10] MEDS: NovoLIN R (or HumuLIN R) SUBCUT PRN ×2 (05:42→21:48)
[2022-12-10] MEDS: NS 1,000 ML IV 1,000 ML IV SCH ×4 (07:00→22:00)
[2022-12-10] MEDS: ROCEPHIN VIAL 1 GRAM 1 G in NS 100 ML IV 100 ML IV SCH (08:43)
[2022-12-10] MEDS: ACTOS PO SCH (08:45)
[2022-12-10] MEDS: GLUCOPHAGE XR 24-HR PO SCH (10:05)
[2022-12-10] MEDS: METHADONE HCL PO SCH (10:31)
[2022-12-10] MEDS: LANTUS SC SCH (11:00)
[2022-12-10] MEDS: NICOTINE PATCH TD SCH (16:45)
[2022-12-10] MEDS: SNACK - Diabetic Appropriate PO SCH (20:00)
[2022-12-10] MEDS ORDERED: METHADONE HCL PO ONE (21:32)
[2022-12-11] MEDS: NovoLIN R (or HumuLIN R) SUBCUT PRN ×2 (05:51→13:10)
[2022-12-11 06:08] LABS: BASOPHILS % (AUTO) 0.3 % (0.2-1.0); EOSINOPHILS # (AUTO) 0.1 x10^3/uL (0.0-0.2); EOSINOPHILS % (AUTO) 1.4 % (0.9-2.9); HEMATOCRIT 29.9 % (36.0-47.0); HEMOGLOBIN 9.6 g/dL (12.0-16.0); LYMPHOCYTES # (AUTO) 2.6 X10^3/uL (1.3-2.9); LYMPHOCYTES % (AUTO) 32.5 % (21.0-51.0); MEAN CORPUSCULAR HEMOGLOBIN 21.9 pg (27.0-34.0); MEAN CORPUSCULAR HGB CONC 32.2 g/dL (33.0-35.0); MEAN CORPUSCULAR VOLUME 67.9 fL (80.0-100.0); MONOCYTES # (AUTO) 0.4 x10^3/uL (0.3-0.8); MONOCYTES % (AUTO) 5.5 % (0.0-13.0); NEUTROPHILS # (AUTO) 4.9 x10^3/uL (2.2-4.8); NEUTROPHILS % (AUTO) 60.3 % (42.0-75.0); RED BLOOD COUNT 4.41 X10^6/uL (3.5-5.4); RED CELL DISTRIBUTION WIDTH 17.9 % (11.6-16.5); WHITE BLOOD COUNT 8.1 X10^3/uL (3.6-10.0)
[2022-12-11 06:14] LABS: ALANINE AMINOTRANSFERASE 28 Units/L (12-78); ALBUMIN 2.5 g/dL (3.4-5.0); ALKALINE PHOSPHATASE 70 Units/L (46-116); ASPARTATE AMINO TRANSFERASE 29 Units/L (15-37); BLOOD UREA NITROGEN 3 mg/dL (7-18); CALCIUM 7.9 mg/dL (8.5-10.1); CARBON DIOXIDE 20.4 mmol/L (21-32); CHLORIDE 106 mmol/L (98-107); COR CA(FOR HYPOALB) 9.1 mg/dL (8.5-10.1); COR NA(FOR HYPERGLY) 145 mmol/L (136-145); CREATININE 0.44 mg/dL (0.55-1.02); MAGNESIUM 1.5 mg/dL (2.0-2.9); SODIUM 141 mmol/L (136-145); TOTAL PROTEIN 5.5 g/dL (6.4-8.2); eGFR NON BLACK RACES > 60 (>60)
[2022-12-11] MEDS: MAGNESIUM SULFATE 1 GRAM/100 mL PREMIX 1 G/100 ML BAG IV PRN ×2 (06:24→10:13)
[2022-12-11 06:45] LABS: PLATELET MORPHOLOGY COMMENT NORMAL (NORMAL)
[2022-12-11 06:46] LABS: ANISOCYTOSIS SLIGHT; HYPOCHROMASIA 2+; MICROCYTOSIS 1+
[2022-12-11] MEDS: NS 1,000 ML IV 1,000 ML IV SCH (07:16)
[2022-12-11 07:27] VITALS: BP 150/82
[2022-12-11] MEDS: ROCEPHIN VIAL 1 GRAM 1 G in NS 100 ML IV 100 ML IV SCH (08:11)
[2022-12-11] MEDS: ACTOS PO SCH (08:11)
[2022-12-11] MEDS: GLUCOPHAGE XR 24-HR PO SCH (08:11)
[2022-12-11] MEDS: NICOTINE PATCH TD SCH (08:11)
[2022-12-11] MEDS: METHADONE HCL PO SCH (08:12)
[2022-12-11] MEDS: LANTUS SC SCH (08:12)
[2022-12-11] MEDS ORDERED: NS 100 ML IV 100 ML with VENOFER 400 MG IV NR ×2 (09:36)
[2022-12-11] MEDS: KLOR-CON PO PRN (10:12)
== END 2022-12-11 15:10 | disposition home or self-care (01) | DRG 638 ==
LOC: ER 13:50 → MED/SURG 22:01
PROVIDERS: ADMIT Internal Medicine; ATTEND Obstetrics & Gynecology Obstetrics

== ENCOUNTER 2023-01-08 23:10 | Inpatient (IN) ==
[2023-01-08] MEDS ORDERED: NS 1,000 ML IV 1,000 ML IV ONE (23:19)
--- NOTE | 2023-01-08 23:19 | DR.HYPOGLY ---
HPI Time Seen Time Seen by Provider: 01/08/23 23:18 HPI Comment HPI Comment: Brought in by ems mostly nonsensical with moaning and impossible to understand attempts at speaking although not necessarily trying to answer questions; eyes closed mostly; ems reports she was found this way and rbs on scene greater than 600; cannot get a straight answer about cp, abd pain but does admit to inhaling fentanyl a day ago; says she also took her sugar medications this am; she has been sick all day long with nausea but no vomiting or diarrhea or cough, fever or chills PMH PMH Past Medical History: Diabetes Past Surgical History: Yes Surgical History: Tonsillectomy Family History Family Medical History: Cancer, Heart Failure and Hypertension Social History Do you use any recreational Drugs:: Yes (Fentanyl) ROS Review of Systems Eyes: No Symptoms Reported ENTM: No Symptoms Reported Respiratoy: No Symptoms Reported Cardiovascular: No Symptoms Reported Gastrointestinal/Abdominal: No Symptoms Reported Genitourinary: No Symptoms Reported Musculoskeletal: No Symptoms Reported Integumentary: No Symptoms Reported Hematologic/Lymphatic: No Symptoms Reported Psychiatric: No Symptoms Reported PE Vital Signs Vitals: Temperature 97.2 F Pulse Rate [Right] 113 Pulse Rate 116 Respiratory Rate 50 Blood Pressure [Left Arm] 122/79 Blood Pressure 103/62 O2 Sat by Pulse Oximetry 98 General Limitations: Altered Mental Status General Appearance: Anxious Eyes Eye exam: Normal Appearance Pupils: Regular, Round: Bilateral Sclera/Conjunctival: Normal Inspection: Bilateral ENT ENT Exam: Normal Exam Nose Exam: Normal Nose Exam Mouth Exam: Normal Inspection Throat Exam: Normal Inspection Neck Neck Exam: Normal Inspection Chest Chest Inspection: Normal Inspection Respiratory Respiratory Exam: Normal Lung Sounds Bilat Respiratory Exam: Bilateral: Clear to Auscultation Cardiovascular Cardiovascular Exam: Regular Rate and Normal Rhythm Abdominal Exam Abdominal Exam: Normal Inspection, Normal Bowel Sounds and Soft Extremities Extremities Exam: Normal Inspection Back Back Exam: Normal Inspection Psychiatric Psychiatric Exam: Agitated (eyes closed, moaning) Skin Skin Exam: Warm, Dry, Intact and Normal Color ROR Labs Reviewed Laboratory Results Reviewed?: Yes Result Diagrams: 01/09/23 00:05 01/09/23 02:40 Laboratory: WBC 30.7 X10^3/uL (3.6-10.0) H* 01/09/23 00:05 RBC 4.91 X10^6/uL (3.5-5.4) 01/09/23 00:05 Hgb 11.2 g/dL (12.0-16.0) L 01/09/23 00:05 Hct 41.3 % (36.0-47.0) 01/09/23 00:05 MCV 84.1 fL (80.0-100.0) 01/09/23 00:05 MCH 22.8 pg (27.0-34.0) L 01/09/23 00:05 MCHC 27.1 g/dL (33.0-35.0) L 01/09/23 00:05 RDW 21.8 % (11.6-16.5) H 01/09/23 00:05 Plt Count 336 X10^3/uL (150.0-450.0) 01/09/23 00:05 Plt Count Comment Adequate (ADEQUATE) 01/09/23 00:05 MPV 9.6 fL (7.4-11.0) 01/09/23 00:05 Neut % (Auto) 84.6 % (42.0-75.0) H 01/09/23 00:05 Lymph % (Auto) 8.6 % (21.0-51.0) L 01/09/23 00:05 [place] % (Auto) 5.5 % (0.0-13.0) 01/09/23 00:05 Eos % (Auto) 0.1 % (0.9-2.9) L 01/09/23 00:05 Baso % (Auto) 1.2 % (0.2-1.0) H 01/09/23 00:05 Neut # (Auto) 26.0 x10^3/uL (2.2-4.8) H 01/09/23 00:05 Lymph # (Auto) 2.6 X10^3/uL (1.3-2.9) 01/09/23 00:05 [place] # (Auto) 1.7 x10^3/uL (0.3-0.8) H 01/09/23 00:05 Eos # (Auto) 0.0 x10^3/uL (0.0-0.2) 01/09/23 00:05 Baso # (Auto) 0.4 X10^3/uL (0.0-0.1) H 01/09/23 00:05 Absolute Nucleated RBC 0.0 /100WBC 01/09/23 00:05 Total Counted 100 01/09/23 00:05 Neutrophils % (Manual) 72 % (39-76) 01/09/23 00:05 Band Neutrophils % 7 % (0-10) 01/09/23 00:05 Lymphocytes % (Manual) 14 % (13-43) 01/09/23 00:05 Monocytes % (Manual) 4 % (4-9) 01/09/23 00:05 Metamyelocytes % 1 01/09/23 00:05 Myelocytes % 2 01/09/23 00:05 Plt Morphology Comment Normal (NORMAL) 01/09/23 00:05 RBC Morphology Abnormal (NORMAL) A 01/09/23 00:05 Hypochromasia Slight A 01/09/23 00:05 [place] Cells Present 01/09/23 00:05 Sample Site Lbra 01/08/23 23:21 ABG pH 6.800 (7.35-7.45) L* 01/08/23 23:21 ABG pCO2 11.0 mmHg (35.0-45.0) L* 01/08/23 23:21 ABG pO2 149.0 mmHg (80.0-100.0) H 01/08/23 23:21 ABG HCO3 < 3.0 mmol/L (22-26) L* 01/08/23 23:21 ABG O2 Saturation Not Reportable 01/08/23 23:21 ABG Base Excess Not Reportable 01/08/23 23:21 Lam Test Na 01/08/23 23:21 A-a Gradient -13.0 mmHg 01/08/23 23:21 FiO2 21.0 01/08/23 23:21 Blood Gas Comments Irma well-mtf 01/08/23 23:21 Sodium 131 mmol/L (136-145) L 01/09/23 02:40 Corrected Sodium 144 mmol/L (136-145) 01/09/23 02:40 Potassium 4.6 mmol/L (3.5-5.1) 01/09/23 02:40 Chloride 100 mmol/L (98-107) 01/09/23 02:40 Carbon Dioxide < 5.0 mmol/L (21-32) L* 01/09/23 02:40 BUN 23 mg/dL (7-18) H 01/09/23 02:40 Creatinine 1.01 mg/dL (0.55-1.02) 01/09/23 02:40 Est GFR (MDRD) Af Amer > 60 (>60) 01/09/23 02:40 Est GFR (MDRD) Non-Af > 60 (>60) 01/09/23 02:40 Glucose 662 mg/dL (65-99) H* 01/09/23 02:40 POC Glucose (mg/dL) > 600 mg/dL (65-99) 01/09/23 02:31 Lactic Acid 3.0 mmol/L (0.4-2.0) H 01/09/23 02:07 Calcium 7.7 mg/dL (8.5-10.1) L 01/09/23 02:40 Corrected Calcium TNP 01/09/23 00:05 Total Bilirubin 0.40 mg/dL (0.2-1.0) 01/09/23 00:05 AST 24 Units/L (15-37) 01/09/23 00:05 ALT 39 Units/L (12-78) 01/09/23 00:05 Alkaline Phosphatase 123 Units/L (46-116) H 01/09/23 00:05 Creatine Kinase 63 Units/L (26-192) 01/09/23 00:05 Troponin I High Sens 10.8 ng/L (4.0-60.0) 01/09/23 00:05 Total Protein 7.5 g/dL (6.4-8.2) 01/09/23 00:05 Albumin 4.0 g/dL (3.4-5.0) 01/09/23 00:05 Globulin 3.5 g/dL (2.5-4.5) 01/09/23 00:05 Albumin/Globulin Ratio 1.1 Ratio (1.1-2.1) 01/09/23 00:05 HCG, Qual Negative <10 mIU/mL 01/09/23 00:05 Specimen Type Catherized urine 01/09/23 00:16 Urine Color Straw (YELLOW) 01/09/23 00:16 Urine Appearance Clear (CLEAR) 01/09/23 00:16 Urine pH 5.0 (5.0 - 8.0) 01/09/23 00:16 Ur Specific [place] 1.020 (1.000-1.030) 01/09/23 00:16 Urine Protein 2+ (NEGATIVE) 01/09/23 00:16 Urine Glucose (UA) 4+ (NEGATIVE) 01/09/23 00:16 Urine Ketones 4+ (NEGATIVE) 01/09/23 00:16 Urine Blood 1+ (NEGATIVE) 01/09/23 00:16 Urine Nitrite Negative (NEGATIVE) 01/09/23 00:16 Urine Bilirubin Negative (NEGATIVE) 01/09/23 00:16 Urine Urobilinogen Normal (NORMAL) 01/09/23 00:16 Ur Leukocyte Esterase Negative (NEGATIVE) 01/09/23 00:16 Urine RBC 0-2 /HPF (0-3) 01/09/23 00:16 Urine WBC None seen /HPF (0-5) 01/09/23 00:16 Ur Squamous Epith Cells Rare /HPF (NEGATIVE) 01/09/23 00:16 Amorphous Sediment Trace /HPF (NEGATIVE) 01/09/23 00:16 Urine Bacteria Trace /HPF (NEGATIVE) 01/09/23 00:16 Ur Culture Indicated? No/not indicated 01/09/23 00:16 Urine Opiates Screen Negative (NEG=<300) 01/09/23 00:16 Urine Methadone Screen Negative (NEG=<300) 01/09/23 00:16 Ur Barbiturates Screen Negative (NEG=<200) 01/09/23 00:16 Ur Phencyclidine Scrn Negative (NEG=<25) 01/09/23 00:16 Ur Amphetamines Screen Negative (NEG=<1000) 01/09/23 00:16 U Benzodiazepines Scrn Negative (NEG=<200) 01/09/23 00:16 Urine Cocaine Screen Negative (NEG=<300) 01/09/23 00:16 U Marijuana (THC) Screen Negative (NEG=<50) 01/09/23 00:16 Acetone, Semi-Quant Large (NEGATIVE) H 01/09/23 00:05 Other Results Comments: lactic acid improved; pt af with pcxr, ua benign; increased wbc, tachypnea, etc most likely d/t dka/dehydration; admit, dka protocol and follow closely XRAY XRAY Interpreted by: Radiologist X-ray Results: pcxr: No focal infiltrate or effusion. Opioid Opioid Risk Tool Age (Dre box if 16-45): Yes History of Preadolescent Sexual Abuse: No Total: 1 Total Score Risk Category: Low Risk Copyright: Yinka BRENNAN predicting aberrant behaviors Discharge Plan Diagnosis Discharge Problem: DKA (diabetic ketoacidosis), Acute dehydration, Acquired lymphocytosis Discharge Plan Patient Disposition: 09 ADMITTED INPATIENT Condition: Stable Orders to Discharge Patient Discharge Orders: Discharge (Routine); Ordered 01/09/23 Ordered By: Allyson Azul
[2023-01-08] MEDS ORDERED: NS 1,000 ML IV 1,000 ML ONE (23:25)
[2023-01-08 23:28] LABS: ABG HCO3 < 3.0 mmol/L (22-26)
--- NOTE | 2023-01-08 23:33 | EKG ---
Test Reason : tachycardia Blood Pressure : */* mmHG Vent. Rate : 120 BPM Atrial Rate : 120 BPM P-R Int : 158 ms QRS Dur : 94 ms QT Int : 328 ms P-R-T Axes : 71 67 42 degrees QTc Int : 463 ms Sinus tachycardia Otherwise normal ECG No previous ECGs available Confirmed by Pedro Mae ([id number]) on 01/11/2023 5:33:25 PM Referred By: Confirmed By: Pedro Mae
[2023-01-09] MEDS ORDERED: ZOFRAN INJ 4 MG VIAL ONE
[2023-01-09] MEDS ORDERED: ZOFRAN INJ 4 MG VIAL IVP ONE (00:03)
[2023-01-09 00:42] LABS: APPEARANCE,URINE CLEAR (CLEAR); COLOR,URINE STRAW (YELLOW)
[2023-01-09 00:42] LABS: LACTIC ACID 3.5 mmol/L (0.4-2.0)
[2023-01-09 00:45] LABS: GLUCOSE, URINE 4+ (NEGATIVE); KETONES,URINE 4+ (NEGATIVE); PROTEIN,URINE 2+ (NEGATIVE)
[2023-01-09 00:46] LABS: BACTERIA,URINE TRACE /HPF (NEGATIVE); BILIRUBIN,URINE NEGATIVE (NEGATIVE); BLOOD/HEMOGLOBIN,URINE 1+ (NEGATIVE); LEUKOCYTE ESTERASE ,URINE NEGATIVE (NEGATIVE); NITRITES,URINE NEGATIVE (NEGATIVE); RBC,URINE 0-2 /HPF (0-3); SQUAMOUS EPITHELIAL CELL,UR RARE /HPF (NEGATIVE); UROBILINOGEN,URINE NORMAL (NORMAL)
[2023-01-09] MEDS ORDERED: NS 1,000 ML IV 1,000 ML ONE ×3 (00:58→06:31)
[2023-01-09 00:59] LABS: SERUM ACETONE LARGE (NEGATIVE)
[2023-01-09] MEDS ORDERED: NS 1,000 ML IV 1,000 ML IV ONE ×3 (01:00→12:07)
[2023-01-09 01:09] LABS: BASOPHILS # (AUTO) 0.4 X10^3/uL (0.0-0.1); BASOPHILS % (AUTO) 1.2 % (0.2-1.0); EOSINOPHILS % (AUTO) 0.1 % (0.9-2.9); HEMATOCRIT 41.3 % (36.0-47.0); HEMOGLOBIN 11.2 g/dL (12.0-16.0); LYMPHOCYTES # (AUTO) 2.6 X10^3/uL (1.3-2.9); LYMPHOCYTES % (AUTO) 8.6 % (21.0-51.0); MEAN CORPUSCULAR HEMOGLOBIN 22.8 pg (27.0-34.0); MEAN CORPUSCULAR HGB CONC 27.1 g/dL (33.0-35.0); MEAN CORPUSCULAR VOLUME 84.1 fL (80.0-100.0); MEAN PLATELET VOLUME 9.6 fL (7.4-11.0); MONOCYTES # (AUTO) 1.7 x10^3/uL (0.3-0.8); MONOCYTES % (AUTO) 5.5 % (0.0-13.0); NEUTROPHILS % (AUTO) 84.6 % (42.0-75.0); RED BLOOD COUNT 4.91 X10^6/uL (3.5-5.4); RED CELL DISTRIBUTION WIDTH 21.8 % (11.6-16.5)
[2023-01-09 01:11] LABS: ALANINE AMINOTRANSFERASE 39 Units/L (12-78); ALKALINE PHOSPHATASE 123 Units/L (46-116); ASPARTATE AMINO TRANSFERASE 24 Units/L (15-37); BLOOD UREA NITROGEN 23 mg/dL (7-18); CALCIUM 8.8 mg/dL (8.5-10.1); CHLORIDE 88 mmol/L (98-107); CREATINE KINASE 63 Units/L (26-192); TOTAL PROTEIN 7.5 g/dL (6.4-8.2); eGFR NON BLACK RACES 58 (>60)
[2023-01-09 01:16] LABS: SODIUM 121 mmol/L (136-145)
[2023-01-09 01:18] LABS: CARBON DIOXIDE < 5.0 mmol/L (21-32)
[2023-01-09 01:19] LABS: COR NA(FOR HYPERGLY) 138 mmol/L (136-145)
[2023-01-09 01:22] LABS: WHITE BLOOD COUNT 30.7 X10^3/uL (3.6-10.0)
[2023-01-09 01:23] LABS: BAND NEUTROPHILS % 7 % (0-10); METAMYELOCYTES % 1; MYELOCYTES % 2
[2023-01-09 01:24] LABS: BURR CELLS PRESENT; HYPOCHROMASIA SLIGHT; PLATELET MORPHOLOGY COMMENT NORMAL (NORMAL)
[2023-01-09] MEDS ORDERED: MYXREDLIN 100 UNIT/100 ML BAG 100 UNIT/100 ML PLAST..BAG IV ONE ×2 (01:30→06:31)
[2023-01-09] MEDS: MYXREDLIN 100 UNIT/100 ML BAG 100 UNIT/100 ML PLAST..BAG IV PRN ×2 (01:36→09:25)
[2023-01-09 02:26] LABS: SERUM PREGNANCY TEST, QUAL NEGATIVE <10 mIU/mL
--- NOTE | 2023-01-09 02:42 | RAD ---
HISTORYDKASTUDYCHEST, 1 V[facility]COMPARMer[facility]uary 2022.TECHNIQUEA single frontal view of the chest was obtained.FINDINGSThere are multiple EKG leads and wires seen overlying the patient. The heart is normal in size. There is no focal infiltrate. There is no effusion. There is no pneumothorax. The osseous structures are intact.IMPRESSIONNo focal infiltrate or effusion.Electronically signed by: Jane Smith (Jan 09, 2023 02:40:49)
[2023-01-09 03:04] LABS: BLOOD UREA NITROGEN 23 mg/dL (7-18); CALCIUM 7.7 mg/dL (8.5-10.1); CHLORIDE 100 mmol/L (98-107); CREATININE 1.01 mg/dL (0.55-1.02); SODIUM 131 mmol/L (136-145); eGFR NON BLACK RACES > 60 (>60)
[2023-01-09 03:11] LABS: CARBON DIOXIDE < 5.0 mmol/L (21-32); COR NA(FOR HYPERGLY) 144 mmol/L (136-145)
[2023-01-09 06:20] VITALS: BMI 19.9
[2023-01-09 06:47] LABS: ALANINE AMINOTRANSFERASE 31 Units/L (12-78); ALBUMIN 3.4 g/dL (3.4-5.0); ALKALINE PHOSPHATASE 103 Units/L (46-116); ASPARTATE AMINO TRANSFERASE 21 Units/L (15-37); BLOOD UREA NITROGEN 22 mg/dL (7-18); CALCIUM 8.5 mg/dL (8.5-10.1); CHLORIDE 107 mmol/L (98-107); COR NA(FOR HYPERGLY) 142 mmol/L (136-145); CREATININE 0.85 mg/dL (0.55-1.02); SODIUM 136 mmol/L (136-145); TOTAL PROTEIN 6.9 g/dL (6.4-8.2); eGFR NON BLACK RACES > 60 (>60)
[2023-01-09 06:53] LABS: BASOPHILS # (AUTO) 0.9 X10^3/uL (0.0-0.1); BASOPHILS % (AUTO) 2.9 % (0.2-1.0); HEMATOCRIT 35.5 % (36.0-47.0); HEMOGLOBIN 10.8 g/dL (12.0-16.0); LYMPHOCYTES # (AUTO) 2.4 X10^3/uL (1.3-2.9); LYMPHOCYTES % (AUTO) 7.8 % (21.0-51.0); MEAN CORPUSCULAR HEMOGLOBIN 22.6 pg (27.0-34.0); MEAN CORPUSCULAR HGB CONC 30.3 g/dL (33.0-35.0); MEAN CORPUSCULAR VOLUME 74.5 fL (80.0-100.0); MEAN PLATELET VOLUME 8.5 fL (7.4-11.0); MONOCYTES % (AUTO) 6.3 % (0.0-13.0); NEUTROPHILS # (AUTO) 25.9 x10^3/uL (2.2-4.8); RED BLOOD COUNT 4.77 X10^6/uL (3.5-5.4); RED CELL DISTRIBUTION WIDTH 20.9 % (11.6-16.5)
[2023-01-09] MEDS ORDERED: NS 1,000 ML IV 1,000 ML IV SCH ×2 (07:00)
[2023-01-09 07:03] LABS: WHITE BLOOD COUNT 31.2 X10^3/uL (3.6-10.0)
[2023-01-09 07:09] LABS: BAND NEUTROPHILS % 15 % (0-10)
[2023-01-09 07:10] LABS: ANISOCYTOSIS 1+; PLATELET MORPHOLOGY COMMENT NORMAL (NORMAL)
[2023-01-09 07:11] LABS: HYPOCHROMASIA SLIGHT
[2023-01-09] MEDS: OTBSDRIP XX SCH ×12 (07:15→16:29)
[2023-01-09 07:22] LABS: CARBON DIOXIDE < 5.0 mmol/L (21-32)
[2023-01-09 09:26] LABS: ABG BASE EXCESS -17.9 mmol/L (-2.0-2.0); ABG HCO3 7.5 mmol/L (22-26)
[2023-01-09 09:27] LABS: ABG ALLEN TEST POS
[2023-01-09] MEDS ORDERED: NovoLIN R (or HumuLIN R) IV ONE ×2 (09:59→10:46)
--- NOTE | 2023-01-09 12:37 | RAD ---
HISTORYcentral line placementSTUDYCHEST, 1 [id number]/15/2023.TECHNIQUEAP chest 2 images.FINDINGSRight IJ central line in good position. Cardiac and mediastinal contours are within normal limits. There are mild bibasilar patchy opacities. No definite pleural effusion or pneumothorax.IMPRESSIONRight IJ central line in good position. No pneumothorax. Bibasilar mild patchy opacities may represent atelectasis or infiltrate.Electronically signed by: Arnel Parr (Jan 09, 2023 12:35:29)
--- NOTE | 2023-01-09 12:58 | PCM.PROG ---
Progress Note - Past Medical Family Social History Allergies: Allergies Sulfa (Sulfonamide Antibiotics) Allergy (Verified 07/31/19 23:40) - Vital Signs and I&O's Vital Signs: Temperature 97.3 F Pulse Rate [Right] 113 Pulse Rate 117 Respiratory Rate 26 Blood Pressure [Left Arm] 122/79 Blood Pressure 123/70 O2 Sat by Pulse Oximetry 100 Intake and Output: Intake & Output 01/06/23 01/07/23 01/08/23 01/09/23 23:59 23:59 23:59 23:59 Intake Total 118 / 118 Output Total 2500 / 2500 Balance -2382 / -2382 - Physical Exam Speech Pattern: Clear, Appropriate - Laboratory and Diagnostics Result Diagrams: 01/09/23 06:24 01/09/23 06:24 Labs: Laboratory WBC 31.2 X10^3/uL (3.6-10.0) H* 01/09/23 06:24 RBC 4.77 X10^6/uL (3.5-5.4) 01/09/23 06:24 Hgb 10.8 g/dL (12.0-16.0) L 01/09/23 06:24 Hct 35.5 % (36.0-47.0) L 01/09/23 06:24 MCV 74.5 fL (80.0-100.0) L 01/09/23 06:24 MCH 22.6 pg (27.0-34.0) L 01/09/23 06:24 MCHC 30.3 g/dL (33.0-35.0) L 01/09/23 06:24 RDW 20.9 % (11.6-16.5) H 01/09/23 06:24 Plt Count 265 X10^3/uL (150.0-450.0) 01/09/23 06:24 Plt Count Comment Adequate (ADEQUATE) 01/09/23 06:24 MPV 8.5 fL (7.4-11.0) 01/09/23 06:24 Neut % (Auto) 83.0 % (42.0-75.0) H 01/09/23 06:24 Lymph % (Auto) 7.8 % (21.0-51.0) L 01/09/23 06:24 [place] % (Auto) 6.3 % (0.0-13.0) 01/09/23 06:24 Eos % (Auto) 0.0 % (0.9-2.9) L 01/09/23 06:24 Baso % (Auto) 2.9 % (0.2-1.0) H 01/09/23 06:24 Neut # (Auto) 25.9 x10^3/uL (2.2-4.8) H 01/09/23 06:24 Lymph # (Auto) 2.4 X10^3/uL (1.3-2.9) 01/09/23 06:24 [place] # (Auto) 2.0 x10^3/uL (0.3-0.8) H 01/09/23 06:24 Eos # (Auto) 0.0 x10^3/uL (0.0-0.2) 01/09/23 06:24 Baso # (Auto) 0.9 X10^3/uL (0.0-0.1) H 01/09/23 06:24 Absolute Nucleated RBC 0.0 /100WBC 01/09/23 06:24 Total Counted 100 01/09/23 06:24 Neutrophils % (Manual) 69 % (39-76) 01/09/23 06:24 Band Neutrophils % 15 % (0-10) H 01/09/23 06:24 Lymphocytes % (Manual) 10 % (13-43) L 01/09/23 06:24 Monocytes % (Manual) 6 % (4-9) 01/09/23 06:24 Metamyelocytes % 1 01/09/23 00:05 Myelocytes % 2 01/09/23 00:05 Plt Morphology Comment Normal (NORMAL) 01/09/23 06:24 RBC Morphology Abnormal (NORMAL) A 01/09/23 06:24 Hypochromasia Slight A 01/09/23 06:24 Anisocytosis 1+ A 01/09/23 06:24 [place] Cells Present 01/09/23 00:05 Sample Site Rrad 01/09/23 09:22 ABG pH 7.230 (7.35-7.45) L 01/09/23 09:22 ABG pCO2 18.0 mmHg (35.0-45.0) L* 01/09/23 09:22 ABG pO2 91.0 mmHg (80.0-100.0) 01/09/23 09:22 ABG HCO3 7.5 mmol/L (22-26) L* 01/09/23 09:22 ABG O2 Saturation 95.0 % (90-100) 01/09/23 09:22 ABG Base Excess -17.9 mmol/L (-2.0-2.0) L 01/09/23 09:22 Lam Test Pos 01/09/23 09:22 A-a Gradient Not Reportable 01/09/23 09:22 FiO2 21.0 01/09/23 09:22 Blood Gas Comments Irma well ms 01/09/23 09:22 Sodium 136 mmol/L (136-145) 01/09/23 06:24 Corrected Sodium 142 mmol/L (136-145) 01/09/23 06:24 Potassium 4.2 mmol/L (3.5-5.1) 01/09/23 06:24 Chloride 107 mmol/L (98-107) 01/09/23 06:24 Carbon Dioxide < 5.0 mmol/L (21-32) L* 01/09/23 06:24 BUN 22 mg/dL (7-18) H 01/09/23 06:24 Creatinine 0.85 mg/dL (0.55-1.02) 01/09/23 06:24 Est GFR (MDRD) Af Amer > 60 (>60) 01/09/23 06:24 Est GFR (MDRD) Non-Af > 60 (>60) 01/09/23 06:24 Glucose 332 mg/dL (65-99) H 01/09/23 06:24 POC Glucose (mg/dL) 87 mg/dL (65-99) 01/09/23 12:42 Lactic Acid 1.0 mmol/L (0.4-2.0) 01/09/23 06:24 Calcium 8.5 mg/dL (8.5-10.1) 01/09/23 06:24 Corrected Calcium TNP 01/09/23 06:24 Total Bilirubin 0.40 mg/dL (0.2-1.0) 01/09/23 06:24 AST 21 Units/L (15-37) 01/09/23 06:24 ALT 31 Units/L (12-78) 01/09/23 06:24 Alkaline Phosphatase 103 Units/L (46-116) 01/09/23 06:24 Creatine Kinase 63 Units/L (26-192) 01/09/23 00:05 Troponin I High Sens 10.8 ng/L (4.0-60.0) 01/09/23 00:05 Total Protein 6.9 g/dL (6.4-8.2) 01/09/23 06:24 Albumin 3.4 g/dL (3.4-5.0) 01/09/23 06:24 Globulin 3.5 g/dL (2.5-4.5) 01/09/23 06:24 Albumin/Globulin Ratio 1.0 Ratio (1.1-2.1) L 01/09/23 06:24 HCG, Qual Negative <10 mIU/mL 01/09/23 00:05 Specimen Type Catherized urine 01/09/23 00:16 Urine Color Straw (YELLOW) 01/09/23 00:16 Urine Appearance Clear (CLEAR) 01/09/23 00:16 Urine pH 5.0 (5.0 - 8.0) 01/09/23 00:16 Ur Specific [place] 1.020 (1.000-1.030) 01/09/23 00:16 Urine Protein 2+ (NEGATIVE) 01/09/23 00:16 Urine Glucose (UA) 4+ (NEGATIVE) 01/09/23 00:16 Urine Ketones 4+ (NEGATIVE) 01/09/23 00:16 Urine Blood 1+ (NEGATIVE) 01/09/23 00:16 Urine Nitrite Negative (NEGATIVE) 01/09/23 00:16 Urine Bilirubin Negative (NEGATIVE) 01/09/23 00:16 Urine Urobilinogen Normal (NORMAL) 01/09/23 00:16 Ur Leukocyte Esterase Negative (NEGATIVE) 01/09/23 00:16 Urine RBC 0-2 /HPF (0-3) 01/09/23 00:16 Urine WBC None seen /HPF (0-5) 01/09/23 00:16 Ur Squamous Epith Cells Rare /HPF (NEGATIVE) 01/09/23 00:16 Amorphous Sediment Trace /HPF (NEGATIVE) 01/09/23 00:16 Urine Bacteria Trace /HPF (NEGATIVE) 01/09/23 00:16 Ur Culture Indicated? No/not indicated 01/09/23 00:16 Urine Opiates Screen Negative (NEG=<300) 01/09/23 00:16 Urine Methadone Screen Negative (NEG=<300) 01/09/23 00:16 Ur Barbiturates Screen Negative (NEG=<200) 01/09/23 00:16 Ur Phencyclidine Scrn Negative (NEG=<25) 01/09/23 00:16 Ur Amphetamines Screen Negative (NEG=<1000) 01/09/23 00:16 U Benzodiazepines Scrn Negative (NEG=<200) 01/09/23 00:16 Urine Cocaine Screen Negative (NEG=<300) 01/09/23 00:16 U Marijuana (THC) Screen Negative (NEG=<50) 01/09/23 00:16 Acetone, Semi-Quant Large (NEGATIVE) H 01/09/23 00:05 Procedures (ALL) - Central Line Placement PCM.CLCO: written consent Time out performed: Yes Patient placed pm monitor/pulse ox: Yes MD prep: mask, gown, gloves, other Centrial line prep: chlorhexidine scrub Local anesthsia used: lidocane 1% Ultrasound used for placement: Yes (good US visualization) Central line lumen ininserted: triple Post procedure: sutured in place, good blood return, all ports aspirated, flushed,capped, sterile dressing applied Post procedure xray: tip oc catheter in good position, no pneumothorax seen, other Patient tolerated procedure: Yes (x1 attempt to Right IJ) Complications: none
[2023-01-09] MEDS ORDERED: D5 1/2 NS + KCL 20 MEQ/L 1,000 ML IV SCH (13:00)
[2023-01-09] MEDS: NS 1,000 ML IV 1,000 ML IV SCH ×2 (13:45→20:17)
[2023-01-09] MEDS ORDERED: METHADONE HCL PO ONE (16:22)
[2023-01-09] MEDS ORDERED: NovoLIN N or HumuLIN N SC NR (17:00)
[2023-01-09] MEDS ORDERED: SNACK - Diabetic Appropriate PO SCH ×2 (20:00)
[2023-01-09] MEDS: LANTUS SC SCH (20:16)
[2023-01-09] MEDS: ZOFRAN INJ 4 MG VIAL IVP PRN (20:57)
[2023-01-10] MEDS: NS 1,000 ML IV 1,000 ML IV SCH ×5 (02:39→20:39)
[2023-01-10 04:49] LABS: BASOPHILS % (AUTO) 0.2 % (0.2-1.0); HEMATOCRIT 30.8 % (36.0-47.0); HEMOGLOBIN 10.1 g/dL (12.0-16.0); LYMPHOCYTES # (AUTO) 1.5 X10^3/uL (1.3-2.9); LYMPHOCYTES % (AUTO) 11.1 % (21.0-51.0); MEAN CORPUSCULAR HEMOGLOBIN 23.1 pg (27.0-34.0); MEAN CORPUSCULAR HGB CONC 32.7 g/dL (33.0-35.0); MEAN CORPUSCULAR VOLUME 70.5 fL (80.0-100.0); MEAN PLATELET VOLUME 8.3 fL (7.4-11.0); MONOCYTES % (AUTO) 7.1 % (0.0-13.0); NEUTROPHILS % (AUTO) 81.6 % (42.0-75.0); RED BLOOD COUNT 4.37 X10^6/uL (3.5-5.4); RED CELL DISTRIBUTION WIDTH 22.2 % (11.6-16.5)
[2023-01-10 05:11] LABS: WHITE BLOOD COUNT 13.4 X10^3/uL (3.6-10.0)
[2023-01-10 05:13] LABS: ANISOCYTOSIS 2+; BURR CELLS PRESENT; HYPOCHROMASIA 1+; MICROCYTOSIS 1+; PLATELET MORPHOLOGY COMMENT NORMAL (NORMAL)
[2023-01-10 05:15] LABS: ALANINE AMINOTRANSFERASE 25 Units/L (12-78); ALBUMIN 2.7 g/dL (3.4-5.0); ALKALINE PHOSPHATASE 73 Units/L (46-116); ASPARTATE AMINO TRANSFERASE 18 Units/L (15-37); BLOOD UREA NITROGEN 14 mg/dL (7-18); CALCIUM 7.8 mg/dL (8.5-10.1); CHLORIDE 108 mmol/L (98-107); COR CA(FOR HYPOALB) 8.8 mg/dL (8.5-10.1); COR NA(FOR HYPERGLY) 140 mmol/L (136-145); CREATININE 0.75 mg/dL (0.55-1.02); SODIUM 138 mmol/L (136-145); TOTAL PROTEIN 5.7 g/dL (6.4-8.2); eGFR NON BLACK RACES > 60 (>60)
[2023-01-10 05:19] LABS: CARBON DIOXIDE 13.6 mmol/L (21-32)
[2023-01-10] MEDS ORDERED: K-RIDER 10 MEQ/NS 100 ML 10 MEQ/100 ML BAG IV PRN (05:23)
[2023-01-10] MEDS: K-RIDER 10 MEQ/NS 100 ML 10 MEQ/100 ML BAG IV PRN ×8 (05:55→22:56)
[2023-01-10] MEDS: ZOFRAN INJ 4 MG VIAL IVP PRN ×2 (08:10→19:57)
[2023-01-10] MEDS ORDERED: METHADONE HCL PO ONE (09:01)
[2023-01-10] MEDS ORDERED: CHLORASEPTIC SPRAY MT PRN (09:02)
[2023-01-10] MEDS ORDERED: NovoLIN R (or HumuLIN R) SC PRN (09:05)
[2023-01-10] MEDS ORDERED: GLUCOPHAGE ONE ×2 (09:28→20:00)
[2023-01-10] MEDS: GLUCOPHAGE PO SCH ×2 (09:53→21:10)
[2023-01-10] MEDS: RHINOCORT ALLERGY NASAL SPRAY ENOSTRIL SCH (09:54)
[2023-01-10] MEDS: ACTOS PO SCH (09:57)
[2023-01-10] MEDS: MAGNESIUM SULFATE 1 GRAM/100 mL PREMIX 1 G/100 ML BAG IV PRN ×4 (11:51→15:07)
[2023-01-10] MEDS: LANTUS SC SCH (20:20)
[2023-01-11] MEDS: K-RIDER 10 MEQ/NS 100 ML 10 MEQ/100 ML BAG IV PRN ×8 (00:09→23:14)
[2023-01-11] MEDS: NS 1,000 ML IV 1,000 ML IV SCH ×5 (03:15→20:48)
[2023-01-11 04:48] LABS: BASOPHILS % (AUTO) 0.4 % (0.2-1.0); EOSINOPHILS % (AUTO) 0.1 % (0.9-2.9); HEMATOCRIT 31.3 % (36.0-47.0); HEMOGLOBIN 10.4 g/dL (12.0-16.0); LYMPHOCYTES # (AUTO) 1.7 X10^3/uL (1.3-2.9); LYMPHOCYTES % (AUTO) 14.7 % (21.0-51.0); MEAN CORPUSCULAR HGB CONC 33.1 g/dL (33.0-35.0); MEAN CORPUSCULAR VOLUME 69.3 fL (80.0-100.0); MEAN PLATELET VOLUME 8.4 fL (7.4-11.0); MONOCYTES # (AUTO) 0.9 x10^3/uL (0.3-0.8); MONOCYTES % (AUTO) 7.6 % (0.0-13.0); NEUTROPHILS # (AUTO) 8.9 x10^3/uL (2.2-4.8); NEUTROPHILS % (AUTO) 77.2 % (42.0-75.0); RED BLOOD COUNT 4.52 X10^6/uL (3.5-5.4); RED CELL DISTRIBUTION WIDTH 22.3 % (11.6-16.5); WHITE BLOOD COUNT 11.6 X10^3/uL (3.6-10.0)
[2023-01-11 05:02] LABS: ALANINE AMINOTRANSFERASE 20 Units/L (12-78); ALBUMIN 2.8 g/dL (3.4-5.0); ALKALINE PHOSPHATASE 78 Units/L (46-116); ASPARTATE AMINO TRANSFERASE 14 Units/L (15-37); BLOOD UREA NITROGEN 5 mg/dL (7-18); CALCIUM 8.1 mg/dL (8.5-10.1); CARBON DIOXIDE 22.5 mmol/L (21-32); CHLORIDE 108 mmol/L (98-107); COR CA(FOR HYPOALB) 9.1 mg/dL (8.5-10.1); CREATININE 0.52 mg/dL (0.55-1.02); MAGNESIUM 1.6 mg/dL (2.0-2.9); SODIUM 141 mmol/L (136-145); TOTAL PROTEIN 5.9 g/dL (6.4-8.2); eGFR NON BLACK RACES > 60 (>60)
[2023-01-11 05:11] LABS: ANISOCYTOSIS 2+; HYPOCHROMASIA 1+; MICROCYTOSIS 1+; OVALOCYTES SLIGHT; PLATELET MORPHOLOGY COMMENT NORMAL (NORMAL); TARGET CELLS SLIGHT
[2023-01-11] MEDS: MAGNESIUM SULFATE 1 GRAM/100 mL PREMIX 1 G/100 ML BAG IV PRN ×2 (05:53→17:52)
[2023-01-11] MEDS ORDERED: GLUCOPHAGE ONE ×2 (09:44→21:00)
[2023-01-11] MEDS: GLUCOPHAGE PO SCH ×2 (09:50→21:10)
[2023-01-11] MEDS: RHINOCORT ALLERGY NASAL SPRAY ENOSTRIL SCH (09:51)
[2023-01-11] MEDS: ACTOS PO SCH (09:51)
[2023-01-11] MEDS ORDERED: METHADONE HCL PO ONE ×2 (10:42→22:49)
[2023-01-11] MEDS: METHADONE HCL PO PRN ×2 (10:45→22:53)
[2023-01-11] MEDS ORDERED: SINEquan PO SCH (21:00)
[2023-01-11] MEDS ORDERED: SINEquan PO ONE (21:06)
[2023-01-11] MEDS: LANTUS SC SCH (21:11)
[2023-01-12] MEDS: NS 1,000 ML IV 1,000 ML IV SCH ×2 (04:10→13:35)
[2023-01-12 05:03] LABS: BASOPHILS % (AUTO) 0.3 % (0.2-1.0); EOSINOPHILS % (AUTO) 0.4 % (0.9-2.9); HEMATOCRIT 27.1 % (36.0-47.0); HEMOGLOBIN 9.1 g/dL (12.0-16.0); LYMPHOCYTES # (AUTO) 2.8 X10^3/uL (1.3-2.9); LYMPHOCYTES % (AUTO) 34.3 % (21.0-51.0); MEAN CORPUSCULAR HEMOGLOBIN 23.3 pg (27.0-34.0); MEAN CORPUSCULAR HGB CONC 33.4 g/dL (33.0-35.0); MEAN CORPUSCULAR VOLUME 69.8 fL (80.0-100.0); MEAN PLATELET VOLUME 8.3 fL (7.4-11.0); MONOCYTES # (AUTO) 0.5 x10^3/uL (0.3-0.8); MONOCYTES % (AUTO) 5.6 % (0.0-13.0); NEUTROPHILS # (AUTO) 4.9 x10^3/uL (2.2-4.8); NEUTROPHILS % (AUTO) 59.4 % (42.0-75.0); RED BLOOD COUNT 3.89 X10^6/uL (3.5-5.4); RED CELL DISTRIBUTION WIDTH 22.7 % (11.6-16.5); WHITE BLOOD COUNT 8.3 X10^3/uL (3.6-10.0)
[2023-01-12 05:18] LABS: ALANINE AMINOTRANSFERASE 15 Units/L (12-78); ALBUMIN 2.2 g/dL (3.4-5.0); ALKALINE PHOSPHATASE 67 Units/L (46-116); ASPARTATE AMINO TRANSFERASE 10 Units/L (15-37); BLOOD UREA NITROGEN 5 mg/dL (7-18); CALCIUM 7.6 mg/dL (8.5-10.1); CARBON DIOXIDE 27.1 mmol/L (21-32); CHLORIDE 110 mmol/L (98-107); CREATININE 0.46 mg/dL (0.55-1.02); MAGNESIUM 1.7 mg/dL (2.0-2.9); SODIUM 143 mmol/L (136-145); eGFR NON BLACK RACES > 60 (>60)
[2023-01-12] MEDS: K-RIDER 10 MEQ/NS 100 ML 10 MEQ/100 ML BAG IV PRN ×6 (05:32→10:47)
[2023-01-12 05:34] LABS: ANISOCYTOSIS 2+; HYPOCHROMASIA 1+; OVALOCYTES SLIGHT; PLATELET MORPHOLOGY COMMENT NORMAL (NORMAL); TARGET CELLS SLIGHT
[2023-01-12 05:35] LABS: MICROCYTOSIS 1+
[2023-01-12] MEDS: RHINOCORT ALLERGY NASAL SPRAY ENOSTRIL SCH (08:21)
[2023-01-12] MEDS: GLUCOPHAGE PO SCH ×2 (08:22→10:11)
[2023-01-12] MEDS: ACTOS PO SCH ×2 (08:23→10:12)
[2023-01-12] MEDS: MAGNESIUM SULFATE 1 GRAM/100 mL PREMIX 1 G/100 ML BAG IV PRN ×2 (08:33→09:45)
[2023-01-12] MEDS ORDERED: GLUCOPHAGE ONE (09:41)
[2023-01-12] MEDS ORDERED: K-DUR TAB 20 MEQ PO SCH (10:00)
[2023-01-12] MEDS ORDERED: K-DUR TAB 20 MEQ PO ONE (10:01)
[2023-01-12] MEDS: MAGNESIUM SULFATE 1 GRAM/100 mL PREMIX 1 G/100 ML BAG IV SCH ×2 (10:47→12:00)
[2023-01-12 13:37] VITALS: BP 125/97
[2023-01-14] MEDS ORDERED: ROCEPHIN VIAL 1 GRAM ONE (09:00)
== END 2023-01-12 14:00 | disposition home or self-care (01) | DRG 638 ==
LOC: ER 23:10 → ICU 01-09 04:21
PROVIDERS: ADMIT Internal Medicine; ATTEND Obstetrics & Gynecology Obstetrics
DX: F15.93 Other stimulant use, unspecified with withdrawal; E11.10 Type 2 diabetes mellitus with ketoacidosis without coma; E87.6 Hypokalemia; I87.2 Venous insufficiency (chronic) (peripheral); D72.820 Lymphocytosis (symptomatic); E83.42 Hypomagnesemia; E86.0 Dehydration